=== PATIENT | female | born 1990 | race Caucasian/White ===

== ENCOUNTER 2019-09-06 10:08 | Emergency (ER) | payer SELFPAY ==
[2019-09-06 10:09] VITALS: BP 121/58; PULSE 86; RESP 18; TEMP 36.7; O2SAT 100; BMI 25.0
--- NOTE | 2019-09-06 10:11 | ED_ITS ---
Entered by [id number], acting as scribe for Joyce Rodríguez PA Sep 06, 2019 10:08 HPI - General Adult General: Chief complaint: Upper Respiratory Infection Stated complaint: COUGH, RUNNY NOSE Time Seen by Provider: 09/06/19 10:10 Source: patient Mode of arrival: ambulatory Limitations: no limitations History of Present Illness: HPI narrative: Patient is a 28-year-old female who presents to ED today with complaints of a sore throat, body aches, subjective fevers, productive cough, nasal congestion over the past few days. She states her is sick with similar symptoms. Patient has not had any vomiting or diarrhea. She has not had any recent travels. She denies any difficulty breathing or shortness of breath. Onset (ago): day(s) Relieving factors: none Exacerbating factors: none Associated symptoms: Deny chest pain, dyspnea, headache(s), malaise, nausea, rash, palpitations, syncope or vomiting Review of Systems Const: Reports: body aches; Denies: fever (subjective), chills, change in appetite, change in weight, fatigue or malaise Eyes: Denies: change in vision, blurry vision, photophobia, eye discomfort or eye discharge ENMT: Reports: throat pain, painful swallowing, nasal discharge, nasal congestion and facial/sinus pain; Denies: uvular edema, enlarged tonsils, swelling of lips/tongue, oral sores/lesions, ear pain, ear discharge, tinnitus, nose bleeds or post nasal drip Card: Denies: chest pain, palpitations, irregular heart rhythm, edema, swelling of feet/ankles, lightheadedness, syncope, pre-syncope or shortness of breath when lying down Resp: Reports: productive cough and chest congestion; Denies: shortness of breath, non-productive cough, pain on inspiration or coughing up blood GI: Denies: abdominal pain, nausea, vomiting or diarrhea : Denies: flank pain, difficulty urinating, painful urination, urinary frequency, urinary urgency or urinary hesitancy Musc: Denies: neck pain or back pain Skin/Breast: Denies: rash Neuro: Denies: headache, numbness in extremities, weakness in extremities or changes in sensation All/Imm: Denies: facial swelling or seasonal allergies PFSH ED PFSH: Social History Smoking and tobacco status: never smoked Physical Exam Const: COMMON NORMALS: no apparent distress, average body habitus, oriented x3, no limitations, healthy appearing, alert and well nourished HENMT: COMMON NORMALS: normocephalic, head/scalp atraumatic, hearing grossly normal bilaterally, external ears normal, EAC's normal, TM's normal bilaterally, external nose normal, nasal mucous membranes and turbinates normal, moist oral mucous membranes and oropharynx normal HEAD & SCALP: normocephalic and atraumatic FACE & SINUS: sinus tenderness (mild bilateral maxillary) NOSE: external nose normal, nares normal and nasal mucous membranes and turbinates normal EXTERNAL EAR: Yes external ears normal EXTERNAL AUDITORY CANAL: EAC's normal TYMPANIC MEMBRANE: TM's normal bilaterally MOUTH: oral and palatal mucosa normal, lip normal and tongue normal THROAT: posterior oropharynx normal, tonsils normal and uvula midline; no uvular edema Eye: COMMON NORMALS: PERRL, EOMs intact bilaterally and conjunctivae normal CONJUNCTIVA: Yes conjunctivae normal PUPIL: Yes PERRL Neck/C-Spine: COMMON NORMALS: full ROM, no lymphadenopathy and no meningeal signs Resp: COMMON NORMALS: normal respiratory effort and clear to auscultation bilaterally AUSCULTATION: clear to auscultation bilaterally Cardio: COMMON NORMALS: regular rate and regular rhythm RATE: regular rate RHYTHM: regular rhythm GI: COMMON NORMALS: normal to inspection, nondistended, normoactive bowel sounds, soft to palpation and non-tender PALPATION: Yes soft Extremity: COMMON NORMALS: normal to inspection Neuro: COMMON NORMALS: oriented x3 SENSORIUM/ORIENTATION: Yes alert MENINGEAL SIGNS: Yes no meningeal signs Skin: COMMON NORMALS: no rashes or lesions noted GENERAL SKIN EXAM: no rashes or lesions noted Course Vital Signs: Vital signs: Vital Signs Temperature 98.1 F 09/06/19 10:09 Pulse Rate 86 09/06/19 10:09 Respiratory Rate 18 09/06/19 10:09 Blood Pressure 121/58 09/06/19 10:09 Pulse Oximetry 100 09/06/19 10:09 MDM - General Adult 2 MDM Narrative: Medical decision making narrative: pt does not meet state criteria for COVID-19 testing; recommend symptomatic treatment and self quarantine x 2 wks; vitals are perfect; CXR normal; influenza negative Lab Data: Labs: Lab Results 09/06/19 Range/Units 10:30 Influenza Type A A g Negative (Negative) POC Influenza B Ag Negative (Negative) Imaging Data^: CXR: Radiologist's impression: [address] [address] XRay Report Signed Patient: Batsheva Durand Unit #: [id number] : 1990 Age/Sex: 28 / F ADM Date: 09/06/19 Loc: ER Room/Bed: Attending Dr: Ordering Provider/Ordering MD: Joyce Rodríguez Date of Service: 09/06/19 Procedure(s): XR chest 1V portable [id number] Accession Number(s): [id number] Report Number: [id number] WS: [id number] XR chest 1V portable [id number] REASON FOR EXAM: cough/congestion FINDINGS: The heart and mediastinal interfaces normal. The lung valiente are well aerated. There is no pneumonia, pleural effusion, pulmonary edema, mass effect, or pneumothorax. The hilum and apices normal. Osseous structures were normal. XR/XR chest 1V portable [id number] IMPRESSION: Negative chest for active cardiopulmonary disease Dictated By: Kameron Boyd DO Signed By: Kameron Boyd DO Signed Date/Time: 09/06/19 1104 DD/ 1103 Discharge Plan Discharge Patient Disposition: Home, Self-Care Clinical Impression: Upper respiratory infection Qualifiers: URI type: unspecified viral URI Qualified Code(s): J06.9 - Acute upper respiratory infection, unspecified Condition: Stable Discharge Orders: Discharge Order (Routine); Ordered 09/06/19 Ordered By: Joyce Rodríguez Referrals: Megan Ledesma MD [Primary Care Provider] - Discharge Diet: Usual diet Discharge Activity: Increase activity as tolerated Patient Instructions: Upper Respiratory Infection (ED), Viral Syndrome (ED) Coding Level of Care Code ED Copper Plate Lithographer for Chg Fwd Exam Comprehensive The documentation recorded by the scribe, [id number], accurately reflects the service I personally performed and the decisions made by Marcos watson Emily, PA Sep 06, 2019 10:08
--- NOTE | 2019-09-06 10:22 | XR_ITS ---
WS: [id number] XR chest 1V portable [id number] REASON FOR EXAM: cough/congestion FINDINGS: The heart and mediastinal interfaces normal. The lung valiente are well aerated. There is no pneumonia, pleural effusion, pulmonary edema, mass effe ct, or pneumothorax. The hilum and apices normal. Osseous structures were normal. XR/XR chest 1V portable [id number] IMPRESSION: Negative chest for active cardiopulmonary disease
[2019-09-06] MEDS: acetaminophen 500 mg Tablet 1000 MG PO (10:29)
[2019-09-06 11:03] LABS: Influenza A by IFA Negative (Negative); Influenza B by IFA Negative (Negative)
[2019-09-06 11:14] VITALS: PULSE 78; RESP 14; O2SAT 100
== END 2019-09-06 11:14 | disposition home or self-care (01) ==
PROVIDERS: Emergency Provider Physician Assistant; Family Provider Family Medicine; PCP Family Medicine
DX: J06.9 Acute upper respiratory infection, unspecified (principal)
CPT/HCPCS: 12345; 71045; 87804; 99281; 99283

== ENCOUNTER 2019-12-02 17:47 | Emergency (ER) | payer SELFPAY ==
[2019-12-02 17:51] VITALS: BMI 26.0
[2019-12-02 17:54] VITALS: BP 124/71; PULSE 87; RESP 16; TEMP 36.8; O2SAT 100
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
--- NOTE | 2019-12-02 18:06 | XR_ITS ---
WS: [id number] XR knee LT 3V* [id number] REASON FOR EXAM: injury with pain FINDINGS: The meniscal spaces are normal. The patellofemoral articulations are normal. The patella ti bial space are normal. No fractures or displacement of the knee. XR/XR knee LT 3V* [id number] IMPRESSION: Negative left knee.
--- NOTE | 2019-12-02 18:06 | XR_ITS ---
WS: [id number] XR knee RT 3V* [id number] REASON FOR EXAM: injury with pain FINDINGS: The meniscal spaces are normal. No fractures of the femur, tibia, fibula. The patellofemoral articulations are normal. No fractures of the patella. The patella tibial space is within normal limits. XR/XR knee RT 3V* [id number] IMPRESSION: Negative right knee for fractures.
[2019-12-02] MEDS: HYDROcodone-acetaminophen 7.5-325 mg Tablet 1 TAB PO (18:11)
== END 2019-12-02 18:49 | disposition home or self-care (01) ==
PROVIDERS: Emergency Provider Physician Assistant; PCP Family Medicine
DX: L55.9 Sunburn, unspecified (principal); M25.561 Pain in right knee; M25.562 Pain in left knee
CPT/HCPCS: 12345; 73562; 99281; 99283

== ENCOUNTER → 2020-02-02 11:40 | Outpatient (BNVA) | payer OTHER, SELFPAY | PROVIDERS: PCP Family Medicine; Visit Provider Obstetrics & Gynecology | DX: R63.5 Abnormal weight gain (principal) | CPT/HCPCS: 84443 ==

== ENCOUNTER → 2020-03-16 14:45 | Outpatient (BNVA) | payer OTHER, SELFPAY | PROVIDERS: Visit Provider Psychiatry & Neurology Psychiatry | DX: F33.2 Major depressive disorder, recurrent severe without psychotic features (principal); F10.21 Alcohol dependence, in remission; F12.21 Cannabis dependence, in remission | CPT/HCPCS: 99204 ==

== ENCOUNTER → 2020-04-11 08:28 | Outpatient (BNVA) | payer OTHER, SELFPAY | PROVIDERS: Visit Provider Psychiatry & Neurology Psychiatry | DX: F33.2 Major depressive disorder, recurrent severe without psychotic features (principal); F10.21 Alcohol dependence, in remission; F12.21 Cannabis dependence, in remission | CPT/HCPCS: 99213 ==

== ENCOUNTER → 2020-07-04 09:21 | Outpatient (BNVA) | payer OTHER, SELFPAY | PROVIDERS: Visit Provider Psychiatry & Neurology Psychiatry | DX: F32.9 Major depressive disorder, single episode, unspecified (principal); F33.2 Major depressive disorder, recurrent severe without psychotic features; F12.21 Cannabis dependence, in remission; F10.21 Alcohol dependence, in remission | CPT/HCPCS: 99213 ==

== ENCOUNTER 2020-09-08 18:54 | Emergency (ER) | payer OTHER, SELFPAY ==
--- NOTE | 2020-09-08 18:55 | CTR_ITS ---
PROCEDURE INFORMATION: Exam: CT Head Without Contrast Exam date and time: 09/08/2020 7:05 PM Age: 29 years old Clinical indication: Pain; Dizziness and other: Nausea; Headache; Additional info: Syncope TECHNIQUE: Imaging protocol: Computed tomography of the head without contrast. Radiation optimization: All CT scans at this facility use at least one of these dose optimization techniques: automated exposure control; mA and/or kV adjustment per patient size (includes targeted exams where dose is matched to clinical indication); or iterative reconstruction. COMPARISON: No relevant prior studies available. RADIATION DOSE METRICS: Total DLP (mGy-cm): 716.51 FINDINGS: Brain: Normal. No hemorrhage or evidence of acute infarction is seen. No mass effect. Cerebral ventricles: No ventriculomegaly. Bones/joints: Unremarkable. No acute fracture. Paranasal sinuses: Visualized sinuses are unremarkable. No fluid levels. Mastoid air cells: Visualized mastoid air cells are well aerated. Soft tissues: Unremarkable. CT/CT head wo con* [id number] IMPRESSION: No acute intracranial abnormality. Radiation Dose CTDIVOL = (mGy): DLP = 716.51 (mGy-cm)
[2020-09-08 19:02] VITALS: BP 143/88; PULSE 87; RESP 18; TEMP 37; O2SAT 100; BMI 26.6
[2020-09-08] MEDS: ketorolac 30 mg/mL INJ IVP (19:55)
[2020-09-08] MEDS: diphenhydrAMINE 50 mg/mL SDV 1mL IVP (19:55)
[2020-09-08] MEDS: metoclopramide 5 mg/mL SDV 2 mL 10 MG IVP (19:55)
[2020-09-08 20:07] LABS: Basophils # 0.1 10^3/uL (0.0-0.1); Basophils % 0.6 %; Eosinophils # 0.1 10^3/uL (0.0-0.8); Eosinophils % 0.9 %; Hematocrit 44.2 % (37.0-47.0); Hemoglobin 13.9 g/dL (11.5-15.3); Lymphocytes % 28.8 %; Mean Corpuscular HGB Conc 31.4 g/dL (30.0-36.0); Mean Corpuscular Volume 89.1 fL (81-99); Mean Platelet Volume 10.5 fL (7.4-10.4); Monocytes # 0.5 10^3/uL (0.2-0.9); Monocytes % 4.9 %; Neutrophils # 6.74 10^3/uL (1.8-7.7); Neutrophils % 64.5 %; Nucleated Red Blood Cells % 0 %; Platelet Count 289 10^3/cmm (130-400); Red Blood Count 4.96 10^6/uL (4.1-5.3); Red Cell Distribution Width 12.9 % (12.1-15.1); White Blood Count 10.4 10^3/uL (4.0-10.0)
[2020-09-08 20:26] LABS: Alanine Aminotransferase 22 U/L (0-33); Albumin Level 4.3 g/dL (3.5-5.2); Alkaline Phosphatase 96 IU/L (35-105); Anion Gap 11.3 (5-19); Aspartate Amino Transferase 22 U/L (0-32); Blood Urea Nitrogen 8 mg/dL (6-20); Calcium 9.1 mg/dL (8.5-10.5); Carbon Dioxide 30 mmol/L (22-29); Chloride 104 mmol/L (98-107); Globulin 3.3 g/dL (1.3-4.6); Glucose 111 mg/dL (65-115); Osmolality Calculated 293 mOsm/kg (285-295); Potassium 3.3 mmol/L (3.5-5.1); Sodium 142 mmol/L (136-145); Total Bilirubin 0.2 mg/dL (0.15-1.2); Total Protein 7.6 g/dL (6.6-8.7)
[2020-09-08 20:27] LABS: HCG Qualitative Urine. Negative (Negative)
--- NOTE | 2020-09-08 20:31 | W.ED.HA ---
HPI - Headache General: Chief Complaint: Headache Stated Complaint: NEAR SYNCOPE, SENT BY [facility] FOR HEAD CT Time Seen by Provider: 09/08/20 19:13 Source: patient Mode of arrival: ambulatory Limitations: no limitations History of Present Illness: HPI Narrative: 29-year-old female patient who presents to the emergency department with headaches of about 3 days duration. Headache is frontal in location. She has a history of migraines but she says that this is worse than her usual migraines. She went to see her primary care provider who advised that she be evaluated in the emergency department. MD elicited complaint: headache Onset (ago): day(s) (3) Onset description: gradually Location: frontal Severity: severe Quality & Timing: aching, progressively worsening and worst headache of life Exacerbating factors: none Relieving factors: nothing Context: occurred at rest Associated symptoms: Reports lightheadedness and nausea; Deny chest pain, confusion, cough, diaphoresis, eye pain, eye redness, fever(s), loss of vision, malaise, neck stiffness, numbness, paresthesias, photophobia, pre-syncope, rash, seizures, short of breath, sound sensitivity, syncope, vomiting or weakness Review of Systems General: Reports: 10 or more systems reviewed and unremarkable except in HPI and below Const: Denies: fever(s), malaise or diaphoresis Eyes: Denies: change in vision or blurry vision ENMT: Denies: throat pain, enlarged tonsils, odynophagia, hoarseness, mouth pain or swelling of lips/tongue Card: Reports: lightheadedness; Denies: chest pain, syncope or pre-syncope Resp: Denies: dyspnea, productive cough or non-productive cough GI: Reports: nausea; Denies: vomiting : Denies: flank pain, difficulty voiding, dysuria, urinary frequency, urinary urgency or urinary hesitancy Musc: Denies: neck pain, back pain or extremity swelling Skin/Breast: Denies: rash Neuro: Denies: confusion Endo: Denies: polyuria, polydipsia or tired all the time PFS ED PFSH: Medical History Anxiety and depression Diagnosed as a teenager and has used medications on and off in the past. Was on Celexa and BuSpar during her in 2019. Follows with PMD. Does not have a therapist. No pertinent past medical history Denies diabetes, asthma, hypertension, seizures, DVT/PE. PCP: Dr. Ledesma Surgical History S/P laparoscopy In 2010 for bilateral ovarian cysts---this surgery was performed by Dr. Vanegas Family History Father Diabetes Hypertension Heart disease of same Mother Hypertension Denies family history of Colon cancer Ovarian cancer Hyperlipidemia Breast cancer Uterine cancer Thyroid condition Stroke Social History Smoking and tobacco status: never smoked Second hand smoke exposure: Yes Current gender identity: Female Female Reproductive History: Date of last menstrual period: 09/08/20 Physical Exam Const: COMMON NORMALS: no acute distress, average body habitus, patient oriented x3, no limitations, healthy appearing, alert and well nourished HENMT: COMMON NORMALS: normocephalic, atraumatic, external ears normal, EAC's normal and moist oral mucous membranes HEAD & SCALP: normocephalic and atraumatic FACE & SINUS: sinus tenderness frontal and maxillary EXTERNAL EAR: Yes external ears normal EXTERNAL AUDITORY CANAL: EAC's normal TYMPANIC MEMBRANE: TM abnormal TM laterality: bilateral with fluid behind the TM Eye: COMMON NORMALS: Equal, round and reactive pupils present, EOMs intact bilaterally, conjunctivae normal and no scleral icterus CONJUNCTIVA: Yes conjunctivae normal PUPIL: Yes Equal, round and reactive pupils present DIRECT OPHTHALMOSCOPY: No photophobia Neck/C-Spine: COMMON NORMALS: full ROM, supple, no meningeal signs, no JVD and No carotid bruits Resp: COMMON NORMALS: normal respiratory effort, No retractions, No use of accessory muscles, clear to auscultation bilaterally and percussion normal AUSCULTATION: clear to auscultation bilaterally PERCUSSION: percussion normal Cardio: COMMON NORMALS: no JVD, regular rate, regular rhythm, S1 normal heart sound present, S2 normal heart sound present, No gallops present (Cardio), No clicks present (Cardio), No murmurs present (Cardio), No rub (Cardio) and Peripheral pulses 2+ throughout RATE: regular rate RHYTHM: regular rhythm HEART SOUNDS: S1 normal heart sound present and S2 normal heart sound present PERIPHERAL PULSES: Peripheral pulses 2+ throughout GI: COMMON NORMALS: Normal to inspection, nondistended, normoactive bowel sounds present, Soft to palpation, non-tender, No hepatosplenomegaly present, no masses and no bruits PALPATION: Yes Soft to palpation and Yes No hepatosplenomegaly present Extremity: COMMON NORMALS: normal to inspection, full ROM, capillary refill normal, no calf tenderness and no pedal edema Neuro: COMMON NORMALS: patient oriented x3 SENSORIUM/ORIENTATION: Yes alert MENINGEAL SIGNS: Yes no meningeal signs Course Reevaluation(s): Reevaluation #1: Discussed her lab and imaging findings with her. Negative for acute findings. Headache has resolved following the Toradol and Benadryl. Discussed that her examination findings are consistent with acute sinusitis and she will be managed as such. She voiced understanding and is in agreement with the plan. Time: 20:31 Vital Signs: Vital signs: Vital Signs Temperature 98.6 F 09/08/20 19:02 Pulse Rate 87 09/08/20 19:02 Respiratory Rate 18 09/08/20 19:02 Blood Pressure 143/88 09/08/20 19:02 Pulse Oximetry 100 09/08/20 19:02 MDM - Headache MDM Narrative: Medical decision making narrative: 29-year-old female patient with a history of migraines who presents with headache. On examination she has maxillary and frontal sinus tenderness and she will be treated as a case of sinusitis. Head CT was negative for acute findings. Headache resolved following intravenous ketorolac and diphenhydramine. Lab Data: Labs: Lab Results 09/08/20 09/08/20 09/08/20 Range/Units 20:00 20:00 20:10 WBC 10.4 H (4.0-10.0) 10^3/ uL RBC 4.96 (4.1-5.3) 10^6/u L Hgb 13.9 (11.5-15.3) g/dL Hct 44.2 (37.0-47.0) % MCV 89.1 (81-99) fL MCH 28.0 (28.0-34.0) pg MCHC 31.4 (30.0-36.0) g/dL RDW 12.9 (12.1-15.1) % Plt Count 289 (130-400) 10^3/c mm MPV 10.5 H (7.4-10.4) fL Neut % (Auto) 64.5 % Lymph % (Auto) 28.8 % [place] % (Auto) 4.9 % Eos % (Auto) 0.9 % Baso % (Auto) 0.6 % Neut # (Auto) 6.74 (1.8-7.7) 10^3/u L Lymph # (Auto) 3.0 (0.8-4.8) 10^3/u L [place] # (Auto) 0.5 (0.2-0.9) 10^3/u L Eos # (Auto) 0.1 (0.0-0.8) 10^3/u L Baso # (Auto) 0.1 (0.0-0.1) 10^3/u L Nucleated RBC % (a uto) 0 % Nucleated RBCs # 0.0 /100WBC Sodium 142 (136-145) mmol/L Potassium 3.3 L (3.5-5.1) mmol/L Chloride 104 (98-107) mmol/L Carbon Dioxide 30 H (22-29) mmol/L Anion Gap 11.3 (5-19) BUN 8 (6-20) mg/dL Creatinine 0.9 (0.5-0.9) mg/dL GFR Calculation 74.0 L (90-130) mL/min Glucose 111 (65-115) mg/dL Calculated Osmolal ity 293 (285-295) mOsm/k g Calcium 9.1 (8.5-10.5) mg/dL Total Bilirubin 0.2 (0.15-1.2) mg/dL AST 22 (0-32) U/L ALT 22 (0-33) U/L Alkaline Phosphata se 96 (35-105) IU/L Total Protein 7.6 (6.6-8.7) g/dL Albumin 4.3 (3.5-5.2) g/dL Globulin 3.3 (1.3-4.6) g/dL HCG, Qual Negative (Negative) Imaging Data^: CT Head: Attestation: I personally reviewed and interpreted this imaging study as follows: Radiologist's impression: [facility] [address] [place] [address] CT Scan Report Signed Patient: Batsheva Durand #: [id number] : 1990Acct#:[id number] Age/Sex: 29 / FADM Date: 09/08/20 Loc: ERRoom/Bed: Attending Dr: Ordering Provider/Ordering MD: Blas Aldrich MD Date of Service: 09/08/20 Procedure(s): CT head wo con* [id number] Accession Number(s): [id number] Report Number: [id number] PROCEDURE INFORMATION: Exam: CT Head Without Contrast Exam date and time: 09/08/2020 7:05 PM Age: 29 years old Clinical indication: Pain; Dizziness and other: Nausea; Headache; Additional info: Syncope TECHNIQUE: Imaging protocol: Computed tomography of the head without contrast. Radiation optimization: All CT scans at this facility use at least one of these dose optimization techniques: automated exposure control; mA and/or kV adjustment per patient size (includes targeted exams where dose is matched to clinical indication); or iterative reconstruction. COMPARISON: No relevant prior studies available. RADIATION DOSE METRICS: Total DLP (mGy-cm): 716.51 FINDINGS: Brain: Normal. No hemorrhage or evidence of acute infarction is seen. No mass effect. Cerebral ventricles: No ventriculomegaly. Bones/joints: Unremarkable. No acute fracture. Paranasal sinuses: Visualized sinuses are unremarkable. No fluid levels. Mastoid air cells: Visualized mastoid air cells are well aerated. Soft tissues: Unremarkable. CT/CT head wo con* [id number] IMPRESSION: No acute intracranial abnormality. Radiation Dose CTDIVOL = (mGy): DLP = 716.51 (mGy-cm) Dictated By:Sivakumar López MD Signed By:Sivakumar López MDSigned Date/Time:09/08/201936 DD/ 34 Discharge Plan Discharge Patient Disposition: Home Clinical Impression: Sinusitis Qualifiers: Sinusitis location: frontal Chronicity: acute Recurrence: non-recurrent Qualified Code(s): J01.10 - Acute frontal sinusitis, unspecified Condition: Stable Prescriptions: New doxycycline hyclate 100 mg capsule 100 mg PO BID 7 Days Qty: 14 RF: 0 Children's Flonase Allergy Rlf 50 mcg/actuation spray,suspension 2 spray intranasal DAILY Qty: 16 RF: 0 Continued Unisom (doxylamine) 25 mg tablet 25 mg PO PRN RF: 0 buspirone 7.5 mg tablet 7.5 mg PO BID Qty: 60 RF: 2 hydroxyzine HCl 50 mg tablet 50 mg PO BID PRN (Reason: anxiety) Qty: 60 RF: 2 multivitamin Tablet 1 tab PO QAM RF: 0 aspirin 81 mg Tablet,Delayed Release (Dr/Ec) 81 mg PO PRN RF: 0 Tylenol Extra Strength 500 mg Tablet 1,000 mg PO PRN RF: 0 Midol 500-25 mg Tablet 1 - 2 tab PO PRN RF: 0 duloxetine 30 mg capsule,delayed release(DR/EC) 30 mg PO QAM RF: 0 Discharge Orders: Discharge ED (Routine); Ordered 09/08/20 Ordered By: Mario Bedoya Discharge Diet: Usual diet Discharge Activity: Increase activity as tolerated Patient Instructions: Sinusitis (ED) Activity Restrictions/Additional Instructions: Return for any new or worsening symptoms. Follow-up with your primary care provider within 3 days. Take the medications as prescribed. Drink plenty of fluids to keep well-hydrated. Coding Level of Care Code ED Tape Controlled Machine Stitcher for Alma Epperson
== END 2020-09-08 20:54 | disposition home or self-care (01) ==
PROVIDERS: Emergency Medicine; Emergency Provider Family Medicine
DX: J01.10 Acute frontal sinusitis, unspecified (principal); Z79.82 Long term (current) use of aspirin; Z77.22 Contact with and (suspected) exposure to environmental tobacco smoke (acute) (chronic)
CPT/HCPCS: 70450; 80053; 81025; 85025; 96374; 96375; 99284; J1200; J1885; J2765

== ENCOUNTER → 2020-10-28 09:34 | Outpatient (BNVA) | payer OTHER, SELFPAY | PROVIDERS: Visit Provider Psychiatry & Neurology Psychiatry | DX: F33.2 Major depressive disorder, recurrent severe without psychotic features (principal); F12.21 Cannabis dependence, in remission; F10.21 Alcohol dependence, in remission | CPT/HCPCS: 99213 ==

== ENCOUNTER 2021-02-08 16:48 | Emergency (ER) | payer OTHER, SELFPAY ==
[2021-02-08 16:53] VITALS: BP 92/55; PULSE 97; RESP 16; TEMP 37.4; O2SAT 97; BMI 24.3
== END 2021-02-08 21:13 | disposition home or self-care (01) ==
LOC: ER 16:52
PROVIDERS: Emergency Provider Emergency Medicine
DX: Z53.21 Procedure and treatment not carried out due to patient leaving prior to being seen by health care provider (principal)
CPT/HCPCS: 99281

== ENCOUNTER → 2021-03-02 14:30 | Outpatient (BNVA) | payer MEDICAID, SELFPAY | PROVIDERS: Visit Provider Nurse Practitioner Family | DX: Z20.822 Contact with and (suspected) exposure to COVID-19 (principal) | CPT/HCPCS: 87635 ==

== ENCOUNTER 2021-05-30 10:16 | Emergency (ER) | payer MEDICAID, SELFPAY ==
[2021-05-30 10:25] VITALS: PULSE 122; RESP 20; TEMP 37.1; O2SAT 97; BMI 23.8
--- NOTE | 2021-05-30 10:29 | XR_ITS ---
WS: [id number] XR chest 1V portable [id number] REASON FOR EXAM: dyspnea/cough FINDINGS: The heart and mediastinum are within normal limits. Calcified granulomatous changes in both hemithoraces. No active pulmonary parenchymal or pleural disease. No significant abnormality of the bony thorax. XR/XR chest 1V portable [id number] IMPRESSION: No acute chest abnormality.
[2021-05-30 10:32] VITALS: BP 141/99
--- NOTE | 2021-05-30 10:41 | ED_ITS ---
HPI - General Adult General: Chief complaint: General Medical Stated complaint: FLU LIKE SYMPTOMS Time Seen by Provider: 05/30/21 10:18 History of Present Illness: HPI narrative: 30-year-old female presents to the emergency room complaining of nausea and vomiting and flank pain. She has had a UTI recently.She is also had fever and fatigue. Is tachycardic but afebrile at this time. She denies hematuria denies hematochezia melena hematemesis coffee- ground emesis. No shortness of breath no chest pain or abdominal pain. Onset (ago): hour(s) Radiation: other (Pelvic) Severity: mild Quality: burning Pain Consistency: intermittent Relieving factors: none Exacerbating factors: none Associated symptoms: Reports fevers/chills, nausea, vomiting and weakness; Deny chest pain, cough, diaphoresis, decreased appetite, dyspnea, headache(s), malaise, rash, palpitations, seizures, short of breath or syncope Treatments prior to arrival: none Review of Systems Const: Denies: malaise or diaphoresis ENMT: Denies: throat pain, ear or mastoid pain, nasal discharge or nasal congestion Card: Denies: chest pain, palpitations or syncope Resp: Denies: dyspnea GI: Reports: nausea and vomiting : Reports: flank pain, difficulty voiding and dysuria; Denies: urinary frequency or urinary urgency Skin/Breast: Denies: rash Neuro: Denies: headache(s) PFS ED PFSH: Medical History Anxiety and depression Diagnosed as a teenager and has used medications on and off in the past. Was on Celexa and BuSpar during her in 2019. Follows with PMD. Does not have a therapist. No pertinent past medical history Denies diabetes, asthma, hypertension, seizures, DVT/PE. PCP: Dr. Ledesma Surgical History S/P laparoscopy In 2010 for bilateral ovarian cysts---this surgery was performed by Dr. Vanegas Family History Father Diabetes Hypertension Heart disease of same Mother Hypertension Denies family history of Colon cancer Ovarian cancer Hyperlipidemia Breast cancer Uterine cancer Thyroid condition Stroke Social History Smoking and tobacco status: never smoked Second hand smoke exposure: Yes Current gender identity: Female Female Reproductive History: Date of last menstrual period: 05/16/21 Physical Exam Const: COMMON NORMALS: no acute distress GENERAL APPEARANCE: cooperative and comfortable ORIENTATION/CONSCIOUSNESS: Yes awake, Yes oriented to person, Yes oriented to place and Yes oriented to time HENMT: COMMON NORMALS: normocephalic, atraumatic and hearing grossly normal bilaterally HEAD & SCALP: normocephalic and atraumatic Neck/C-Spine: COMMON NORMALS: no JVD Resp: COMMON NORMALS: normal respiratory effort, No retractions, No use of accessory muscles and clear to auscultation bilaterally AUSCULTATION: clear to auscultation bilaterally Cardio: COMMON NORMALS: no JVD, regular rate, regular rhythm and No murmurs present (Cardio) RATE: regular rate RHYTHM: regular rhythm GI: COMMON NORMALS: Soft to palpation and No hepatosplenomegaly present AUSCULTATION: Yes normoactive bowel sounds PALPATION: Yes Soft to palpation, No Tenderness to palpation present (GI), No Guarding due to palpation present (GI) and Yes No hepatosplenomegaly present Extremity: COMMON NORMALS: normal to inspection, capillary refill normal, no clubbing, cyanosis or edema, no calf tenderness and no pedal edema Neuro: SENSORIUM/ORIENTATION: Yes oriented to person, Yes oriented to place and Yes oriented to time Skin: COMMON NORMALS: no rashes or lesions noted GENERAL SKIN EXAM: no rashes or lesions noted Course Vital Signs: Vital signs: Vital Signs Temperature 98.8 F 05/30/21 10:25 Pulse Rate 119 H 05/30/21 14:39 Respiratory Rate 17 05/30/21 14:39 Blood Pressure 111/59 05/30/21 14:39 Pulse Oximetry 98 05/30/21 14:39 MDM - General Adult MDM Narrative: Medical decision making narrative: Labs and imaging reviewed. Patient has UTI white count not elevated we will start her on Cipro use promethazine as needed clear liquid diet for 24 to 48 hours and advance as tolerated return if has any further problems. Lab Data: Labs: Lab Results 05/30/21 05/30/21 05/30/21 10:41 10:41 10:41 WBC 8.4 10^3/uL 10^3/ uL (4.0-10.0) RBC 5.47 10^6/uL H 10 ^6/uL (4.1-5.3) Hgb 15.4 g/dL H g/dL (11.5-15.3) Hct 47.4 % H % (37.0-47.0) MCV 86.7 fl fl (81-99) MCH 28.2 pg pg (28.0-34.0) MCHC 32.5 g/dL g/dL (30.0-36.0) RDW 12.7 % % (12.1-15.1) Plt Count 190 10^3/cmm 10^3 /cmm (130-400) MPV 11.2 fL H fL (7.4-10.4) Neut % (Auto) 89.6 % % Lymph % (Auto) 7.5 % % [place] % (Auto) 1.3 % % Eos % (Auto) 0.7 % % Baso % (Auto) 0.5 % % Neut # (Auto) 7.57 10^3/uL 10^3 /uL (1.8-7.7) Lymph # (Auto) 0.6 10^3/uL L 10^ 3/uL (0.8-4.8) [place] # (Auto) 0.1 10^3/uL L 10^ 3/uL (0.2-0.9) Eos # (Auto) 0.1 10^3/uL 10^3/ uL (0.0-0.8) Baso # (Auto) 0.0 10^3/uL 10^3/ uL (0.0-0.1) Nucleated RBC % (a uto) 0 % % Nucleated RBCs # 0.0 /100WBC /100W BC Sodium 136 mmol/L mmol/L (136-145) Potassium 4.6 mmol/L mmol/L (3.5-5.1) Chloride 100 mmol/L mmol/L (98-107) Carbon Dioxide 20 mmol/L L mmol/ L (22-29) Anion Gap 20.6 H (5-19) BUN 7 mg/dL mg/dL (6-20) Creatinine 0.9 mg/dL mg/dL (0.5-0.9) GFR Calculation 73.5 mL/min L mL/ min (90-130) Glucose 115 mg/dL mg/dL (65-115) Calculated Osmolal ity 281 mOsm/kg L mOs m/kg (285-295) Lactic Acid 1.6 mmol/L mmol/L (0.5-2.2) Calcium 9.0 mg/dL mg/dL (8.5-10.5) Total Bilirubin 0.3 mg/dL mg/dL (0.15-1.2) AST 22 U/L U/L (0-32) ALT 13 U/L U/L (0-33) Alkaline Phosphata se 74 IU/L IU/L (35-105) Total Protein 7.3 g/dL g/dL (6.6-8.7) Albumin 4.3 g/dL g/dL (3.5-5.2) Globulin 3.0 g/dL g/dL (1.3-4.6) HCG, Qual Urine Color Urine Appearance Urine pH Ur Specific Gravit y Urine Protein Urine Glucose (UA) Urine Ketones Urine Blood Urine Nitrate Urine Bilirubin Urine Urobilinogen Ur Leukocyte Bell ase Urine RBC Urine WBC Ur Squamous Epith Cells Amorphous Sediment Urine Bacteria 05/30/21 05/30/21 10:41 10:41 WBC RBC Hgb Hct MCV MCH MCHC RDW Plt Count MPV Neut % (Auto) Lymph % (Auto) [place] % (Auto) Eos % (Auto) Baso % (Auto) Neut # (Auto) Lymph # (Auto) [place] # (Auto) Eos # (Auto) Baso # (Auto) Nucleated RBC % (a uto) Nucleated RBCs # Sodium Potassium Chloride Carbon Dioxide Anion Gap BUN Creatinine GFR Calculation Glucose Calculated Osmolal ity Lactic Acid Calcium Total Bilirubin AST ALT Alkaline Phosphata se Total Protein Albumin Globulin HCG, Qual Negative (Negative) Urine Color Yellow (Yellow) Urine Appearance Hazy A (CLEAR) Urine pH 5 (5-7) Ur Specific Gravit y 1.005 (1.005-1.030) Urine Protein Neg (Negative) Urine Glucose (UA) Norm (Normal) Urine Ketones Negative (Negative) Urine Blood 3+ H (Negative) Urine Nitrate Negative (Negative) Urine Bilirubin Neg (Negative) Urine Urobilinogen Norm mg/dL mg/dL (Negative) Ur Leukocyte [place] 1+ H (Negative) Urine RBC 5-10 /hpf H /hpf (0-2) Urine WBC 25-40 /hpf H /hpf (0-5) Ur Squamous Epith Cells 0-4 /hpf H /hpf (0-5) Amorphous Sediment Not Reportable Urine Bacteria 1+ /hpf H /hpf (NONE) Discharge Plan Discharge Patient Disposition: Home Clinical Impression: Cystitis Condition: Stable Prescriptions: New ciprofloxacin HCl 500 mg tablet 500 mg PO BID Qty: 14 RF: 0 promethazine 25 mg tablet 25 mg PO Q6H PRN (Reason: nausea and vomiting) Qty: 20 RF: 0 No Action Unisom (doxylamine) 25 mg tablet 25 mg PO BEDTIME PRN (Reason: Sleep) RF: 0 multivitamin Tablet 1 tab PO QAM RF: 0 acetaminophen [Tylenol Extra Strength] 500 mg Tablet 1,000 mg PO Q4H PRN (Reason: Pain) RF: 0 Isibloom 0.15-0.03 mg tablet 1 tab PO QAM RF: 0 ibuprofen 200 mg Tablet 600 mg PO Q4H PRN (Reason: Pain) RF: 0 Claritin 10 mg Tablet 10 mg PO DAILY RF: 0 Discharge Orders: Discharge ED (Routine); Ordered 05/30/21 Ordered By: Ilan Carroll Discharge Diet: Clear Liquid Discharge Activity: Increase activity as tolerated Patient Instructions: Opioid Safety Coding Level of Care Code ED Geodetic Survey Director for Alma Epperson
[2021-05-30] MEDS: sodium chloride 0.9% 1,000 ML 999 ML IV ×2 (10:45→11:15)
[2021-05-30] MEDS: ondansetron 2 mg/ML SDV 2 mL 4 MG IVP (10:46)
[2021-05-30] MEDS: ketorolac 30 mg/mL INJ IVP (10:46)
[2021-05-30 10:59] LABS: Basophils % 0.5 %; Eosinophils # 0.1 10^3/uL (0.0-0.8); Eosinophils % 0.7 %; Hematocrit 47.4 % (37.0-47.0); Hemoglobin 15.4 g/dL (11.5-15.3); Lymphocytes # 0.6 10^3/uL (0.8-4.8); Lymphocytes % 7.5 %; Mean Corpuscular HGB Conc 32.5 g/dL (30.0-36.0); Mean Corpuscular Hemoglobin 28.2 pg (28.0-34.0); Mean Corpuscular Volume 86.7 fl (81-99); Mean Platelet Volume 11.2 fL (7.4-10.4); Monocytes # 0.1 10^3/uL (0.2-0.9); Monocytes % 1.3 %; Neutrophils # 7.57 10^3/uL (1.8-7.7); Neutrophils % 89.6 %; Nucleated Red Blood Cells % 0 %; Platelet Count 190 10^3/cmm (130-400); Red Blood Count 5.47 10^6/uL (4.1-5.3); Red Cell Distribution Width 12.7 % (12.1-15.1); White Blood Count 8.4 10^3/uL (4.0-10.0)
[2021-05-30 11:10] LABS: HCG, Serum Qual Negative (Negative)
[2021-05-30 11:17] LABS: Lactic Sepsis W/Reflex 1.6 mmol/L (0.5-2.2)
[2021-05-30 11:20] LABS: Alanine Aminotransferase 13 U/L (0-33); Albumin Level 4.3 g/dL (3.5-5.2); Alkaline Phosphatase 74 IU/L (35-105); Anion Gap 20.6 (5-19); Blood Urea Nitrogen 7 mg/dL (6-20); Carbon Dioxide 20 mmol/L (22-29); Chloride 100 mmol/L (98-107); Glomerular Filtration Rate 73.5 mL/min (90-130); Glucose 115 mg/dL (65-115); Osmolality Calculated 281 mOsm/kg (285-295); Potassium 4.6 mmol/L (3.5-5.1); Sodium 136 mmol/L (136-145); Total Bilirubin 0.3 mg/dL (0.15-1.2); Total Protein 7.3 g/dL (6.6-8.7)
[2021-05-30 11:21] LABS: Aspartate Amino Transferase 22 U/L (0-32)
[2021-05-30 11:30] LABS: Blood Urine 3+ (Negative); Glucose Urine UA Norm (Normal); Ketones Urine Negative (Negative); Protein Urine Neg (Negative); Specific Gravity, Urine 1.005 (1.005-1.030); Urine Appearance Hazy (CLEAR); Urine Color Yellow (Yellow); pH Urine 5 (5-7)
[2021-05-30 11:31] LABS: Add Urine Culture? Yes; Add Urine Microscopic? YES; Bacteria Urine 1+ /hpf; Bilirubin Urine Neg (Negative); Leukocyte Esterase Urine 1+ (Negative); Nitrate Urine Negative (Negative); Squamous Epithelial Cell Urine 0-4 /hpf (0-5); Urobilinogen Urine Norm (Negative); WBC Urine 25-40 /hpf (0-5)
[2021-05-30] MEDS: cefTRIAXone 1,000 MG in sodium chloride 0.9% (plus) 50 ML 100 MG IV (12:40)
--- NOTE | 2021-05-30 12:45 | PC.NURSE ---
informed dr. thomas that hr was 119 bpm he verbalized understanding verbal order to continue with dc.
[2021-05-30 14:39] VITALS: BP 111/59; PULSE 119; RESP 17; O2SAT 98
== END 2021-05-30 12:45 | disposition home or self-care (01) ==
PROVIDERS: Emergency Provider Family Medicine
DX: N30.90 Cystitis, unspecified without hematuria (principal); Z77.22 Contact with and (suspected) exposure to environmental tobacco smoke (acute) (chronic)
CPT/HCPCS: 71045; 80053; 81001; 83605; 84703; 85025; 87040; 87077; 87086; 87186; 96365; 96375; 99284; J0696; J1885; J2405; J7030

== ENCOUNTER 2021-12-07 17:23 | Emergency (ER) | payer MEDICAID, SELFPAY ==
[2021-12-07 17:56] VITALS: BP 148/65; PULSE 76; RESP 14; TEMP 36.9; O2SAT 100
--- NOTE | 2021-12-07 18:13 | XRR_ITS ---
PROCEDURE INFORMATION: Exam: XR Chest Exam date and time: 12/07/2021 6:33 PM Age: 30 years old Clinical indication: Chest wall pain; Additional info: Cp TECHNIQUE: Imaging protocol: Radiologic exam of the chest. Views: 1 view. COMPARISON: CR XR chest 1V portable [id number] 05/30/2021 10:41 AM FINDINGS: Lungs: Unremarkable. No consolidation. Pleural spaces: Unremarkable. No pleural effusion. No pneumothorax. Heart/Mediastinum: Unremarkable. No cardiomegaly. Bones/joints: Unremarkable. XR/XR chest 1V portable [id number] IMPRESSION: No acute findings.
--- NOTE | 2021-12-07 18:13 | ECG_ITS ---
[facility] Test Date: 2021-12-07 Pat Name: Batsheva Durand Department: Room: Gender: Female Vice President Biostatistics: : 1990 Requested By: Blas Aldrich Order Number: [id number] Ricci MD: Alfred Jacinto M.D. Measurements Intervals [place] Rate: 62 P: 50 NV: 137 QRS: 44 QRSD: 83 T: 55 QT: 402 QTc: 411 Interpretive Statements SINUS RHYTHM No previous ECG available for comparison Electronically Signed On 12-07-2021 22:29:16 CDT by Alfred Jacinto M.D. [id number]
== END 2021-12-07 21:22 | disposition left against medical advice (07) ==
PROVIDERS: Emergency Provider Family Medicine
DX: Z53.21 Procedure and treatment not carried out due to patient leaving prior to being seen by health care provider (principal)
CPT/HCPCS: 71045; 93005

== ENCOUNTER → 2021-12-08 12:19 | Outpatient (BNVA) | payer MEDICAID, SELFPAY | PROVIDERS: Visit Provider Family Medicine | DX: R05.8 Other specified cough (principal) | CPT/HCPCS: 71046; 87635 ==

== ENCOUNTER 2022-05-24 17:29 | Emergency (ER) | payer MEDICAID, SELFPAY ==
[2022-05-24 17:36] VITALS: BP 125/79; PULSE 76; RESP 16; TEMP 36.5; O2SAT 100; BMI 26.3
--- NOTE | 2022-05-24 18:16 | USR_ITS ---
PROCEDURE INFORMATION: Exam: US First Trimester, Transabdominal and US , Transvaginal Exam date and time: 05/24/2022 6:22 PM Age: 31 years old Clinical indication: Lmp or gestational age (in weeks): 6 w 2 d; Antepartum complications; Bleeding and other: Cramping and spotting x 2-3 days; ; Patient HX: G2-p1 - spotting and cramping x 2 days LABS AND CLINICAL REPORTS: Last menstrual period start date: 04/10/2022 Gestational age (Established): 6 w 2 d Estimated due date (Established): 01/15/2023 TECHNIQUE: Imaging protocol: Real-time transabdominal obstetrical ultrasound of the maternal pelvis and a first trimester , less than 14 weeks 0 days, with image documentation. Transvaginal imaging was used for better evaluation of the fetus, adnexa, and/or cervix. COMPARISON: US OB limited [id number] 07/21/2018 2:20 AM FINDINGS: Gestation: Intrauterine gestation is visualized. pole is visualized. Yolk sac is visualized. Embryonic/ heart rate: 124 bpm Extra-embryonic membranes/Placenta: Unremarkable. No subchorionic bleed. Amniotic fluid: Amniotic fluid and extra-amniotic fluid is normal for gestational age. BIOMETRY: Gestational age (AUA): 6 w 4 d Estimated due date (AUA): 01/13/2023 [place]ump length (CRL): 7.3 mm. EGA (CRL) is 6 w 4 d MATERNAL: Uterus: Uterus measures 9.8 cm x 5 cm x 6.7 cm. Cervix: Unremarkable. Right ovary/adnexa: Right ovary measures 2.5 cm x 1.7 cm x 2.5 cm. Right ovarian volume is 5.6 mL. Prominent simple follicle measures 1.9 cm. Left ovary/adnexa: Left ovary measures 2.3 cm x 2.2 cm x 2.2 cm. Left ovarian volume is 5.9 mL. Small internal region of complexity may represent hemorrhagic follicle. Intraperitoneal space: No intraperitoneal free fluid. US/US OB <=14 wk fetus w transvag IMPRESSION: 1. Single live intrauterine gestation. 2. No acute abnormality.
--- NOTE | 2022-05-24 19:52 | ED_ITS ---
HPI - General: Chief complaint: Vaginal Bleeding Stated complaint: 6 weeks preg, vaginal pains Time Seen by Provider: 05/24/22 19:25 Source: patient Mode of arrival: ambulatory Limitations: no limitations History of Present Illness: 31-year-old female who currently 6 weeks states states she had some abdominal cramping and some slight bleeding. States her bleeding is spotting in nature denies any clots states her pain is a 1 out of 10 she denies any worsening improving factors. Denies any vomiting diarrhea Date of Last Menstrual Period: 05/16/21 Associated symptoms: Reports abdominal pain; Deny headache(s) Review of Systems Const: Denies: fever(s), chills, body aches or change in appetite Eyes: Denies: blurry vision or eye discomfort ENMT: Denies: throat pain or dental pain Card: Denies: chest pain Resp: Denies: dyspnea GI: Reports: abdominal pain : Reports: vaginal bleeding Musc: Denies: neck pain or back pain Skin/Breast: Denies: rash Neuro: Denies: headache(s) Psych: Denies: depression Jorgito/Lymph: Denies: easy bruising All/Imm: Denies: urticaria PFSH ED PFSH: Medical History Anxiety and depression Diagnosed as a teenager and has used medications on and off in the past. Was on Celexa and BuSpar during her in 2019. Follows with PMD. Does not have a therapist. No pertinent past medical history Denies diabetes, asthma, hypertension, seizures, DVT/PE. PCP: Dr. Ledesma Surgical History S/P laparoscopy In 2010 for bilateral ovarian cysts---this surgery was performed by Dr. Vanegas Family History Father Diabetes Hypertension Heart disease of same Mother Hypertension Denies family history of Colon cancer Ovarian cancer Hyperlipidemia Breast cancer Uterine cancer Thyroid condition Stroke Social History Smoking and tobacco status: never smoked Second hand smoke exposure: Yes Current gender identity: Female Female Reproductive History: Date of last menstrual period: 11/30/21 Physical Exam Const: COMMON NORMALS: no acute distress, patient oriented x3 and healthy appearing HENMT: COMMON NORMALS: normocephalic and atraumatic HEAD & SCALP: normocephalic and atraumatic Eye: COMMON NORMALS: Equal, round and reactive pupils present and EOMs intact bilaterally PUPIL: Yes Equal, round and reactive pupils present Neck/C-Spine: COMMON NORMALS: full ROM and supple Chest: COMMONS NORMALS: normal inspection of the chest and normal palpation of entire chest wall Resp: COMMON NORMALS: normal respiratory effort, No retractions, No use of accessory muscles and clear to auscultation bilaterally AUSCULTATION: clear to auscultation bilaterally Cardio: COMMON NORMALS: regular rate, regular rhythm and No murmurs present (Cardio) RATE: regular rate RHYTHM: regular rhythm GI: COMMON NORMALS: Normal to inspection, nondistended, normoactive bowel sounds present, Soft to palpation, non-tender and no masses PALPATION: Yes Soft to palpation Extremity: COMMON NORMALS: normal to inspection and full ROM Neuro: COMMON NORMALS: patient oriented x3, moves all extremities and no focal motor deficits Psych: COMMON NORMALS: mental status grossly normal, Normal thought process present and cooperative THOUGHT PROCESS: Normal thought process present Skin: COMMON NORMALS: no rashes or lesions noted and no wounds GENERAL SKIN EXAM: no rashes or lesions noted Course Vital Signs: Vital signs: Vital Signs Temperature 97.7 F 05/24/22 17:36 Pulse Rate 76 05/24/22 17:36 Respiratory Rate 16 05/24/22 17:36 Blood Pressure 125/79 05/24/22 17:36 Pulse Oximetry 100 05/24/22 17:36 Oxygen Delivery Me thod 05/24/22 17:36 MDM - OB/Uterine Contractions Medical Decision Making Patient presents here with a threatened miscarriage she had a ultrasound that showed an IUP with heart rate her bleeding is minimal here she is O- we will give her RhoGAM she is stable for discharge she is to follow-up with PCP and return if worsening. Lab Data Radiology Impressions Ultrasound 05/24/22 18:16 IMPRESSION: 1. Single live intrauterine gestation. 2. No acute abnormality. Laboratory Results Ser , Semi-Qnt 17795.00 mIU/mL 05/24/22 20:00 Blood Type O Negative 05/24/22 20:00 Rho(D) Type Negative 05/24/22 20:00 Discharge Plan Discharge Patient Disposition: Home Clinical Impression: Threatened miscarriage Condition: Stable Prescriptions: No Action Unisom (doxylamine) 25 mg tablet 25 mg PO BEDTIME PRN (Reason: Sleep) promethazine-DM 6.25-15 mg/5 mL syrup 5 ml PO Q6H PRN (Reason: cough) Qty: 160 0RF azithromycin [Zithromax Z-Mega] 250 mg tablet See Rx Instructions PO .COMPLEX Qty: 6 0RF Rx Instructions: take 500 mg today (day 1), then 250 mg for 4 days (days 2-5) PO albuterol sulfate 90 mcg/actuation HFA aerosol inhaler 2 puff inhalation QID PRN (Reason: shortness of breath or wheezing) Qty: 8.5 0RF budesonide-formoterol [Symbicort] 160-4.5 mcg/actuation HFA aerosol inhaler 2 puff inhalation BID Qty: 10.2 0RF multivitamin Tablet 1 tab PO QAM acetaminophen [Tylenol Extra Strength] 500 mg Tablet 1,000 mg PO Q4H PRN (Reason: Pain) Isibloom 0.15-0.03 mg tablet 1 tab PO QAM ibuprofen 200 mg Tablet 600 mg PO Q4H PRN (Reason: Pain) Claritin 10 mg Tablet 10 mg PO DAILY promethazine 25 mg tablet 25 mg PO Q6H PRN (Reason: nausea and vomiting) Qty: 20 0RF Discharge Orders: Discharge ED (Routine); Ordered 05/24/22 Ordered By: Blas Aldrich Discharge Diet: Advance as tolerated Discharge Activity: Resume usual activity Patient Instructions: Threatened Miscarriage (ED) Coding Level of Care Code ED Chief Business Officer for Chg Fwd Exam Comprehensive
[2022-05-24 21:22] VITALS: BP 119/65; PULSE 64; RESP 16; O2SAT 100
[2022-05-24 22:07] VITALS: BP 130/72; PULSE 58; RESP 14; TEMP 36.7; O2SAT 100
[2022-05-24 22:20] VITALS: BP 130/72; PULSE 60; RESP 16; TEMP 36.8; O2SAT 99
== END 2022-05-24 22:35 | disposition home or self-care (01) ==
PROVIDERS: Emergency Provider Emergency Medicine
DX: O20.0 Threatened abortion (principal); Z3A.01 Less than 8 weeks gestation of pregnancy; Z77.22 Contact with and (suspected) exposure to environmental tobacco smoke (acute) (chronic)
CPT/HCPCS: 36430; 76801; 76817; 84702; 86850; 86900; 90384; 99284

== ENCOUNTER → 2022-05-29 09:40 | Outpatient (BNVA) | payer MEDICAID, SELFPAY | PROVIDERS: Visit Provider Nurse Practitioner Women's Health | DX: N92.6 Irregular menstruation, unspecified (principal) | CPT/HCPCS: 81000; 81025 ==

== ENCOUNTER → 2022-06-05 10:05 | Outpatient (BNVA) | payer MEDICAID, SELFPAY | PROVIDERS: Visit Provider Nurse Practitioner Family | DX: J11.1 Influenza due to unidentified influenza virus with other respiratory manifestations (principal); J06.9 Acute upper respiratory infection, unspecified | CPT/HCPCS: 87400 ==

== ENCOUNTER → 2022-06-29 11:55 | Outpatient (BNVA) | payer MEDICAID, SELFPAY | PROVIDERS: Visit Provider Obstetrics & Gynecology | DX: Z34.80 Encounter for supervision of other normal pregnancy, unspecified trimester (principal); O26.899 Other specified pregnancy related conditions, unspecified trimester; Z67.91 Unspecified blood type, Rh negative; A60.00 Herpesviral infection of urogenital system, unspecified; F41.9 Anxiety disorder, unspecified; F32.9 Major depressive disorder, single episode, unspecified | CPT/HCPCS: 80307; 84315; 85027; 86592; 86762; 86803; 86850; 86870; 86900; 87086; 87340; 87806 ==

== ENCOUNTER → 2022-07-16 13:29 | Outpatient (BNVA) | payer MEDICAID, SELFPAY | PROVIDERS: Visit Provider Obstetrics & Gynecology | DX: Z34.80 Encounter for supervision of other normal pregnancy, unspecified trimester (principal); Z12.4 Encounter for screening for malignant neoplasm of cervix; Z11.3 Encounter for screening for infections with a predominantly sexual mode of transmission | CPT/HCPCS: 84315; 87491; 87591; 87624; 87661 ==

== ENCOUNTER → 2022-07-16 13:29 | Outpatient (BNVA) | payer MEDICAID, SELFPAY | PROVIDERS: Visit Provider Obstetrics & Gynecology | DX: Z12.4 Encounter for screening for malignant neoplasm of cervix (principal); Z11.3 Encounter for screening for infections with a predominantly sexual mode of transmission; O26.899 Other specified pregnancy related conditions, unspecified trimester; Z67.91 Unspecified blood type, Rh negative; A60.00 Herpesviral infection of urogenital system, unspecified; F41.9 Anxiety disorder, unspecified; F32.9 Major depressive disorder, single episode, unspecified; J30.2 Other seasonal allergic rhinitis | CPT/HCPCS: 84315 ==

== ENCOUNTER → 2022-08-17 12:19 | Outpatient (BNVA) | payer MEDICAID, SELFPAY | PROVIDERS: Visit Provider Obstetrics & Gynecology | DX: O26.899 Other specified pregnancy related conditions, unspecified trimester (principal); Z67.91 Unspecified blood type, Rh negative | CPT/HCPCS: 80503 ==

== ENCOUNTER → 2022-08-22 15:45 | Outpatient (BNVA) | payer MEDICAID, SELFPAY | PROVIDERS: Visit Provider Nurse Practitioner Family | DX: N39.0 Urinary tract infection, site not specified (principal) | CPT/HCPCS: 81000 ==

== ENCOUNTER → 2022-08-30 14:13 | Outpatient (BNVA) | payer MEDICAID, SELFPAY | PROVIDERS: Visit Provider Obstetrics & Gynecology | DX: Z34.92 Encounter for supervision of normal pregnancy, unspecified, second trimester (principal); Z3A.20 20 weeks gestation of pregnancy | CPT/HCPCS: 76805 ==

== ENCOUNTER → 2022-09-25 14:38 | Outpatient (BNVA) | payer MEDICAID, SELFPAY | PROVIDERS: Visit Provider Nurse Practitioner Women's Health | DX: Z34.90 Encounter for supervision of normal pregnancy, unspecified, unspecified trimester (principal) | CPT/HCPCS: 82950; 84315 ==

== ENCOUNTER → 2022-10-23 11:23 | Outpatient (BNVA) | payer MEDICAID, SELFPAY | PROVIDERS: Visit Provider Obstetrics & Gynecology | DX: Z34.80 Encounter for supervision of other normal pregnancy, unspecified trimester (principal) | CPT/HCPCS: 84315; 85025; 86900 ==

== ENCOUNTER 2022-11-02 19:41 | Outpatient (CLI) | payer MEDICAID, SELFPAY ==
[2022-11-02] VITALS (12 sets, daily range): BP systolic 108–132; BP diastolic 57–84; PULSE 68–92; O2SAT 100; BMI 25.9
[2022-11-02 21:13] LABS: Bilirubin Urine Neg (Negative); Blood Urine 3+ (Negative); Glucose Urine UA Norm (Normal); Ketones Urine 1+ (Negative); Leukocyte Esterase Urine 2+ (Negative); Nitrate Urine Negative (Negative); Protein Urine Trace (Negative); Specific Gravity, Urine 1.015 (1.005-1.030); Urine Appearance SL Hazy (CLEAR); Urine Color Yellow (Yellow); Urobilinogen Urine Norm (Negative); pH Urine 6 (5-7)
[2022-11-02 21:16] LABS: Add Urine Culture? Yes; Bacteria Urine 2+ /hpf; RBC Urine 40-50 /hpf (0-2); Squamous Epithelial Cell Urine 0-4 /hpf (0-5); WBC Urine TOO NUMEROUS TO CNT /hpf (0-5)
[2022-11-02] MEDS: cefTRIAXone 1,000 MG, lidocaine 1% 2.1 ML in SYRINGE 1 EACH 2.1 MG IM (22:29)
== END 2022-11-02 22:35 | disposition home or self-care (01) ==
LOC: OPOB 19:42 → OBGYN 19:42
PROVIDERS: Visit Provider Obstetrics & Gynecology
DX: O26.899 Other specified pregnancy related conditions, unspecified trimester (principal); R10.9 Unspecified abdominal pain; M54.9 Dorsalgia, unspecified; Z3A.00 Weeks of gestation of pregnancy not specified
CPT/HCPCS: 59025; 81001; 87077; 87086; 87186; 96372; 99211; J0696

== ENCOUNTER → 2022-11-20 15:17 | Outpatient (BNVA) | payer MEDICAID, SELFPAY | PROVIDERS: Visit Provider Obstetrics & Gynecology | DX: Z34.80 Encounter for supervision of other normal pregnancy, unspecified trimester (principal) | CPT/HCPCS: 84315 ==

== ENCOUNTER 2022-11-23 15:25 | Outpatient (CLI) | payer MEDICAID, SELFPAY ==
[2022-11-23] VITALS (18 sets, daily range): BP systolic 112–140; BP diastolic 55–77; PULSE 57–109; RESP 15; O2SAT 100; BMI 26.3
[2022-11-23] MEDS: ondansetron 4 MG Tablet PO (15:55)
[2022-11-23] MEDS: acetaminophen 500 mg Tablet 1000 MG PO (16:14)
[2022-11-23 16:33] LABS: Bilirubin Urine Neg (Negative); Blood Urine Neg (Negative); Glucose Urine UA Norm (Normal); Ketones Urine Negative (Negative); Leukocyte Esterase Urine Negative (Negative); Nitrate Urine Negative (Negative); Protein Urine Neg (Negative); Urine Appearance Clear (CLEAR); Urine Color Yellow (Yellow); Urobilinogen Urine Neg (Negative); pH Urine 6 (5-7)
[2022-11-23 16:34] LABS: RBC Urine 0-4 /hpf (0-2); Squamous Epithelial Cell Urine 0-4 /hpf (0-5); WBC Urine 0-4 /hpf (0-5)
[2022-11-23 16:35] LABS: Add Urine Culture? No; Bacteria Urine TRACE /hpf
[2022-11-23] MEDS: hyDROXYzine 25 mg Capsule 50 MG PO (17:14)
[2022-11-23] MEDS: dextrose 5%-lactated ringers 1,000 ML 999 ML IV ×2 (17:22→18:28)
[2022-11-23] MEDS: terbutaline 1 mg/mL INJ 0.25 MG SUBCUT (17:39)
[2022-11-23] MEDS: betamethasone susp 6 mg/mL 5 mL 12 MG IM (17:42)
== END 2022-11-23 19:54 | disposition home or self-care (01) ==
LOC: OPOB 15:31 → OBGYN 15:31
PROVIDERS: Visit Provider Obstetrics & Gynecology
DX: O26.899 Other specified pregnancy related conditions, unspecified trimester (principal); R25.2 Cramp and spasm; R11.0 Nausea; Z3A.00 Weeks of gestation of pregnancy not specified
CPT/HCPCS: 36415; 59025; 81001; 96372; 99211; J0702; J3105; J7121; Q0162

== ENCOUNTER 2022-11-24 17:55 | Outpatient (CLI) | payer MEDICAID, SELFPAY ==
[2022-11-24] MEDS: betamethasone susp 6 mg/mL 5 mL 12 MG IM (18:05)
[2022-11-24 18:14] VITALS: BMI 26.3
== END 2022-11-24 18:10 | disposition home or self-care (01) ==
LOC: OPOB 18:00
PROVIDERS: Absent Provider Obstetrics & Gynecology; Visit Provider Obstetrics & Gynecology
DX: Z36.89 Encounter for other specified antenatal screening
CPT/HCPCS: 96372; J0702

== ENCOUNTER 2022-11-27 10:41 | Inpatient (IN) | payer MEDICAID, SELFPAY ==
[2022-11-27] VITALS (8 sets, daily range): BP systolic 102–124; BP diastolic 55–73; PULSE 71–76; RESP 15–17; TEMP 36.1–36.2; BMI 25.9
--- NOTE | 2022-11-27 10:47 | US_ITS ---
WS: [id number] RENAL ULTRASOUND HISTORY: pyelonephritis COMPARISON: None available. TECHNIQUE: 2-D and color Doppler imaging of the kidney submitted. Right kidney: 9.0 cm x 4.5 cm x 3.9 cm. Cortex: 1.1 cm Normal echogenicity with no hydronephrosis or mass. Left kidney: 10.5 cm x 3.9 cm x 4.8 cm. Cortex: 1.3 cm Normal echogenicity with no hydronephrosis or mass. Aorta: Normal. Urinary Bladder: Normal distention. US/US renal BI* [id number] IMPRESSION: Normal renal ultrasound.
[2022-11-27] MEDS: lactated ringers 1,000 ML 125 ML IV ×2 (11:10→20:12)
[2022-11-27 11:40] LABS: Basophils % 0.4 %; Eosinophils # 0.1 10^3/uL (0.0-0.8); Eosinophils % 0.8 %; Hematocrit 38.3 % (37.0-47.0); Hemoglobin 11.8 g/dL (11.5-15.3); Lymphocytes # 2.6 10^3/uL (0.8-4.8); Mean Corpuscular HGB Conc 30.8 g/dL (30.0-36.0); Mean Corpuscular Hemoglobin 29.8 pg (28.0-34.0); Mean Corpuscular Volume 96.7 fl (81-99); Mean Platelet Volume 12.2 fL (7.4-10.4); Monocytes # 1.3 10^3/uL (0.2-0.9); Monocytes % 11.2 %; Neutrophils # 6.95 10^3/uL (1.8-7.7); Neutrophils % 61.7 %; Nucleated Red Blood Cells % 0 %; Platelet Count 150 10^3/cmm (130-400); Red Blood Count 3.96 10^6/uL (4.1-5.3); Red Cell Distribution Width 13.8 % (12.1-15.1); White Blood Count 11.3 10^3/uL (4.0-10.0)
[2022-11-27] MEDS: cefTRIAXone 1,000 MG in sodium chloride 0.9% (plus) 50 ML 100 MG IV (13:35)
[2022-11-27] MEDS: HYDROcodone-acetaminophen 5-325 mg Tablet PO ×2 (16:59→22:12)
--- NOTE | 2022-11-27 17:26 | PM.OPHPUD ---
Labor & Delivery H&P Update Date of Procedure: November 27, 2022 Date H&P Performed: 11/27/22 H&P update information: I have reviewed H&P completed within last 30 days, I have examined patient prior to procedure and No changes to prior documentation Admission Diagnosis:
[2022-11-28 04:49] VITALS: BP 98/57; PULSE 75; TEMP 36.3
[2022-11-28] MEDS: HYDROcodone-acetaminophen 5-325 mg Tablet PO ×3 (04:49→22:04)
[2022-11-28] MEDS: lactated ringers 1,000 ML 125 ML IV ×3 (04:50→22:10)
[2022-11-28 10:00] VITALS: BP 115/67; PULSE 81; TEMP 36.1
[2022-11-28 10:41] VITALS: RESP 15
[2022-11-28 11:05] LABS: Actim Prom Negative
[2022-11-28] MEDS: cefTRIAXone 1,000 MG in sodium chloride 0.9% (plus) 50 ML 100 MG IV (12:12)
--- NOTE | 2022-11-28 17:30 | PM.PN ---
Subjective Subjective: Ms. Durand is a 31 year old established patient with LMP of 04/10/2022, CONNOR 01/15/2023 based on LMP placing her at 33-1/7 weeks. With pyelonephritis refers CVA tenderness better. Vitals/I&O/Wt Last Vital Signs Temp 97.0 F L 11/29/22 11:03 Pulse 81 11/29/22 11:04 Resp 15 11/29/22 10:00 BP 132/73 11/29/22 11:04 O2 Del Method Room Air 11/27/22 10:49 11/28/22 11/29/22 11/29/22 22:59 06:59 14:59 Intake Total 999 Balance 999 Physical Exam Narrative: GA: Alert and oriented ?3. Lungs: Clear to auscultation bilaterally. Heart: Regular rhythm and rate. Abdomen: Gravid, full the height equals dates, nontender. ICE PLANT OPERATOR: SVE; dilation: 0 cm, effacement: 0%, station: -5, presentation: Cephalic, membranes: Intact membrane. Extremities: no edema, no cyanosis, no calves pain. heart tracing: Basal rate: 140's bpm, Variability: moderate, Accelerations: present, Decelerations: absent, Contraction: No contraction. Data 11/27/22 10:55 A&P Assessment and plan (1) Pyelonephritis affecting in third trimester: Mrs. Durand 31-year-old female G2, P1 placing her at 33-1/7 weeks with pyelonephritis admitted for IV antibiotic therapy. Symptoms improving. Will continue IV antibiotic therapy for an additional 24 hours then will change to p.o. medication. Attestations Medical Necessity Statement*: In my professional opinion poor admitting diagnosis Coding Level of Care Code Acute Code for Chg Fwd Diagnoses Pyelonephritis affecting in third trimester O23.03
[2022-11-28 18:50] VITALS: BP 127/65; PULSE 81
[2022-11-28] MEDS: docusate sodium 100 mg Capsule PO (20:59)
[2022-11-28 22:01] VITALS: TEMP 35.9
[2022-11-28 22:02] VITALS: BP 113/55; PULSE 70
[2022-11-29] VITALS (7 sets, daily range): BP systolic 121–132; BP diastolic 58–73; PULSE 70–81; RESP 15–16; TEMP 36.1–36.2
[2022-11-29] MEDS: HYDROcodone-acetaminophen 5-325 mg Tablet PO (07:13)
[2022-11-29] MEDS: cefTRIAXone 1,000 MG in sodium chloride 0.9% (plus) 50 ML 100 MG IV (10:24)
--- NOTE | 2022-11-29 11:35 | P.DS_ITS ---
Discharge Providers DELIVERY PERSON Date of Admission: 11/27/22 10:41 Date of Discharge: 11/29/22 Attending Provider at Admission: Pernell Ying MD Attending Provider at Discharge: Pernell Ying MD Primary DELIVERY PERSON: Pernell Ying MD Diagnoses at Discharge Discharge Diagnosis (1) Pyelonephritis affecting in third trimester: Details from hospital stay: Mrs. Santana 31-year-old female G2, P1 with an estimated gestational age at 33 weeks and 2 days admitted for antibiotic IV therapy due to pyelonephritis. Status: Acute Reason for Visit Reason for Visit: pylonephritis Hospital Course Hospital Course Mrs. Sanatna 31-year-old female G2, P1 with an estimated gestational age at 33 weeks and 2 days admitted for antibiotic IV therapy due to pyelonephritis. She received IV antibiotic therapy for 48 hours. CVA tenderness have resolved. She is afebrile hemodynamically stable. Physical Exam Narrative: GA: Alert and oriented ?3. Lungs: Clear to auscultation bilaterally. Heart: Regular rhythm and rate. Abdomen: Gravid, full the height equals dates, nontender. MARINE OIL TERMINAL SUPERINTENDENT: SVE; dilation: 0 cm, effacement: 0%, station: -5, presentation: Cephalic, membranes: Intact membrane. Extremities: no edema, no cyanosis, no calves pain. heart tracing: Basal rate: 140's bpm, Variability: moderate, Accelerations: present, Decelerations: absent, Contraction: No contraction. History History History 2 Term 1 0 Miscarriages/Ectopic 0 Living Children 1 Discharge Data Studies Completed and Pending Completed Studies During Hospitalization Category Date Time Status US renal BI* [id number] Stat Ultrasound 11/27/22 10:47 Completed Radiology Impressions Renal Ultrasound 11/27/22 10:47 IMPRESSION: Normal renal ultrasound. Laboratory Results WBC 11.3 10^3/uL (4.0-10.0) H 11/27/22 10:55 RBC 3.96 10^6/uL (4.1-5.3) L 11/27/22 10:55 Hgb 11.8 g/dL (11.5-15.3) 11/27/22 10:55 Hct 38.3 % (37.0-47.0) 11/27/22 10:55 MCV 96.7 fl (81-99) 11/27/22 10:55 MCH 29.8 pg (28.0-34.0) 11/27/22 10:55 MCHC 30.8 g/dL (30.0-36.0) 11/27/22 10:55 RDW 13.8 % (12.1-15.1) 11/27/22 10:55 Plt Count 150 10^3/cmm (130-400) 11/27/22 10:55 MPV 12.2 fL (7.4-10.4) H 11/27/22 10:55 Neut % (Auto) 61.7 % 11/27/22 10:55 Lymph % (Auto) 23.0 % 11/27/22 10:55 [place] % (Auto) 11.2 % 11/27/22 10:55 Eos % (Auto) 0.8 % 11/27/22 10:55 Baso % (Auto) 0.4 % 11/27/22 10:55 Neut # (Auto) 6.95 10^3/uL (1.8-7.7) 11/27/22 10:55 Lymph # (Auto) 2.6 10^3/uL (0.8-4.8) 11/27/22 10:55 [place] # (Auto) 1.3 10^3/uL (0.2-0.9) H 11/27/22 10:55 Eos # (Auto) 0.1 10^3/uL (0.0-0.8) 11/27/22 10:55 Baso # (Auto) 0.0 10^3/uL (0.0-0.1) 11/27/22 10:55 Nucleated RBC % (auto) 0 % 11/27/22 10:55 Nucleated RBCs # 0.0 /100WBC 11/27/22 10:55 Insulin-like GF I Negative 11/28/22 10:35 Vitals Last Vital Signs Temp 97.0 F L 11/29/22 11:03 Pulse 81 11/29/22 11:04 Resp 15 11/29/22 10:00 BP 132/73 11/29/22 11:04 O2 Del Method Room Air 11/27/22 10:49 Discharge Plan Discharge Patient Disposition: Home Condition: Stable Prescriptions: New nitrofurantoin macrocrystal 100 mg capsule 100 mg PO BID 7 Days Qty: 14 0RF Rx Instructions: must administer with a meal/food Continued prenat.vits,naila,tah-uyzu-cooup Tablet 1 tab PO DAILY ascorbate calcium (vitamin C) 500 mg tablet 500 mg PO DAILY valacyclovir [Valtrex] 500 mg tablet 500 mg PO BID Qty: 60 11RF loratadine [Claritin] 10 mg Tablet 10 mg PO DAILY Discharge Orders: Discharge Order (Routine); Ordered 11/29/22 Ordered By: Pernell Ying Referrals: Pernell Ying MD [Physician] - (As scheduled) Discharge Diet: Usual diet Discharge Activity: Resume usual activity Patient Instructions: Labor (GEN), Kidney Infection (GEN), Opioid Safety, OB Undelivered Discharge, Pyelonephritis Discharge Attestations DELIVERY PERSON Time Spent in Discharge Care*: less than 30 min Coding Level of Care Code Acute Code for Chg Fwd Diagnoses Pyelonephritis affecting in third trimester O23.03
== END 2022-11-29 11:50 | disposition home or self-care (01) | DRG 833 ==
LOC: OPOB 11-28 08:03 → OBGYN 11-28 08:03
PROVIDERS: Admitting Provider Obstetrics & Gynecology; Visit Provider Obstetrics & Gynecology
DX: O23.03 Infections of kidney in pregnancy, third trimester (principal); Z3A.33 33 weeks gestation of pregnancy; Z37.0 Single live birth; O99.343 Other mental disorders complicating pregnancy, third trimester; F32.A Depression, unspecified; F41.9 Anxiety disorder, unspecified; Z88.0 Allergy status to penicillin; O26.893 Other specified pregnancy related conditions, third trimester; F10.11 Alcohol abuse, in remission; F12.11 Cannabis abuse, in remission
CPT/HCPCS: 36415; 59025; 76770; 84112; 84315; 85025; 99211; J0696; J7120

== ENCOUNTER 2022-12-13 07:17 | Outpatient (CLI) | payer MEDICAID, SELFPAY ==
--- NOTE | 2022-12-13 07:15 | US_ITS ---
WS: [id number] LIMITED OBSTETRICAL ULTRASOUND HISTORY: O26.10 - Low weight gain in , unspecified trimester COMPARISON: 05/24/2022, 08/30/2022. Presentation: Breech. Cervix: Obscured by the head and late gestational age. Placenta: Posterior, no previa or abruption. Grade: 2 HEART: FHR of 147 BPM. measurements: BPD = 8.5 cm = 34w0d; 25th percentile HC = 32.0 cm = 36w0d; 41st percentile AC = 30.7 cm = 34w5d; 47th percentile FL = 6.7 cm = 34w3d; 27th percentile There are several pockets of amniotic fluid identified. At least 1 pocket is greater than 2 cm in dep th. EFW: 2490 g; 55th percentile AGA by ultrasound: 34w6d CONNOR by ultrasound: 01/18/2023 US/[place] [id number] IMPRESSION: 1. Single intrauterine gestation of 34 weeks 6 days with an EDC of 01/18/2023. 2. Normal growth. Appropriate age as compared to the first trimester ultrasoun d. 3. Grade 2 placenta.
== END 2022-12-13 07:18 | disposition home or self-care (01) ==
PROVIDERS: PCP Family Medicine; Visit Provider Nurse Practitioner Women's Health
DX: O26.13 Low weight gain in pregnancy, third trimester (principal); Z3A.34 34 weeks gestation of pregnancy
CPT/HCPCS: 76816

== ENCOUNTER 2022-12-18 13:29 | Outpatient (CLI) | payer MEDICAID, SELFPAY ==
[2022-12-18 13:39] VITALS: BP 127/69; PULSE 71
[2022-12-18 13:48] VITALS: TEMP 36.2
[2022-12-18 13:54] VITALS: BP 118/65; PULSE 83
[2022-12-18 14:09] VITALS: BP 119/68; PULSE 77
== END 2022-12-18 14:35 | disposition home or self-care (01) ==
LOC: OPOB 13:30 → OBGYN 13:32
PROVIDERS: PCP Obstetrics & Gynecology; Visit Provider Obstetrics & Gynecology
DX: O47.9 False labor, unspecified (principal); Z3A.00 Weeks of gestation of pregnancy not specified
CPT/HCPCS: 59025; 99211

== ENCOUNTER 2022-12-19 16:39 | Observation (INO) | payer MEDICAID, SELFPAY ==
[2022-12-19 13:00] VITALS: BMI 26.6
[2022-12-19 13:13] VITALS: BP 121/71; PULSE 80; RESP 18; TEMP 36.2
[2022-12-19 13:40] VITALS: RESP 17
--- NOTE | 2022-12-19 13:45 | US_ITS ---
WS: [id number] ULTRASOUND RENAL TECHNIQUE: Ultrasound examination of both kidneys. CLINICAL INFORMATION: flank pain COMPARISON: Ultrasound November 27, 2022 FINDINGS: RIGHT: Right kidney is normal in size and appearance. Echogenicity: Normal. Cortical thickness: 1.1 cm; Normal. Hydronephrosis: None. Perinephric fluid: None. Right kidney measures: 9.1 cm x 4.3 cm x 4.1 cm. LEFT: Left kidney is normal in size and appearance. Echogenicity: Normal. Cortical thickness: 1.8 cm; Normal. Hydronephrosis: None. Perinephric fluid: None. Left kidney measures: 9.9 cm x 4.8 cm x 4.9 cm. Normal visualized aorta. US/US renal BI* [id number] IMPRESSION: 1. No hydronephrosis in either kidney. 2. Normal bladder.
[2022-12-19] MEDS: HYDROcodone-acetaminophen 5-325 mg Tablet 1 TAB PO ×2 (14:00→22:13)
[2022-12-19] MEDS: sodium chloride 0.9% 1,000 ML 999 ML IV ×2 (14:11→15:18)
[2022-12-19] MEDS: cefTRIAXone 2,000 MG in sodium chloride 0.9% (plus) 50 ML 100 MG IV (14:12)
[2022-12-19 15:06] LABS: Add Urine Culture? No; Bilirubin Urine Neg (Negative); Blood Urine Neg (Negative); Glucose Urine UA Norm (Normal); Ketones Urine Negative (Negative); Leukocyte Esterase Urine Negative (Negative); Nitrate Urine Negative (Negative); Protein Urine Neg (Negative); RBC Urine 0-4 /hpf (0-2); Squamous Epithelial Cell Urine 0-4 /hpf (0-5); Urine Appearance Clear (CLEAR); Urine Color Yellow (Yellow); Urobilinogen Urine Norm (Negative); WBC Urine 0-4 /hpf (0-5); pH Urine 5 (5-7)
[2022-12-19 15:10] VITALS: RESP 16
[2022-12-19 15:17] VITALS: BP 116/64; PULSE 71; RESP 16; TEMP 36.8
[2022-12-19] MEDS: dextrose 5%-sod chloride 0.9% 1,000 ML 150 ML IV ×2 (16:56→23:50)
[2022-12-19] MEDS: valACYclovir 1,000 mg Tablet 500 MG PO (18:09)
[2022-12-19 22:14] VITALS: BP 113/59; PULSE 71; RESP 18; TEMP 36.6
[2022-12-20 05:18] VITALS: BP 104/50; PULSE 68; RESP 16; TEMP 36.8
[2022-12-20] MEDS: HYDROcodone-acetaminophen 5-325 mg Tablet 1 TAB PO (05:19)
[2022-12-20] MEDS: dextrose 5%-sod chloride 0.9% 1,000 ML 150 ML IV (05:19)
[2022-12-20 07:48] VITALS: TEMP 36
[2022-12-20 07:49] VITALS: BP 105/61; PULSE 74
[2022-12-20 09:00] VITALS: BP 105/61; PULSE 74; RESP 16; TEMP 36.1
--- NOTE | 2022-12-20 12:04 | PM.OPHPUD ---
Labor & Delivery H&P Update Date of Procedure: December 20, 2022 Date H&P Performed: 12/13/22 H&P update information: I have reviewed H&P completed within last 30 days and Changes to prior documentation as noted here Changes to previous documentation: The patient is being admitted for observation for suspected pyelonephritits. She is having bladder and left flank pain. It started this morning and progressively worsened. She has a long history of uti and pyelonephritis. Admission Diagnosis:
== END 2022-12-20 10:07 | disposition home or self-care (01) ==
LOC: OPOB 16:39 → OBGYN 12-20 09:09
PROVIDERS: Admitting Provider Obstetrics & Gynecology; PCP Obstetrics & Gynecology; Visit Provider Obstetrics & Gynecology
DX: O26.899 Other specified pregnancy related conditions, unspecified trimester (principal); R10.9 Unspecified abdominal pain; R39.89 Other symptoms and signs involving the genitourinary system; Z87.440 Personal history of urinary (tract) infections; Z3A.00 Weeks of gestation of pregnancy not specified
CPT/HCPCS: 59025; 76770; 81001; 87086; 99211; G0378; J0696; J7030; J7042

== ENCOUNTER → 2022-12-20 08:00 | Outpatient (BNVA) | payer MEDICAID, SELFPAY | PROVIDERS: PCP Obstetrics & Gynecology; Visit Provider Nurse Practitioner Family | DX: M54.9 Dorsalgia, unspecified (principal) | CPT/HCPCS: 81000 ==

== ENCOUNTER → 2022-12-21 15:06 | Outpatient (BNVA) | payer MEDICAID, SELFPAY | PROVIDERS: PCP Obstetrics & Gynecology; Visit Provider Obstetrics & Gynecology | DX: Z34.80 Encounter for supervision of other normal pregnancy, unspecified trimester (principal) | CPT/HCPCS: 81000; 87081 ==

== ENCOUNTER 2023-01-13 06:31 | Inpatient (IN) | payer MEDICAID, SELFPAY ==
[2023-01-13] VITALS (33 sets, daily range): BP systolic 98–138; BP diastolic 51–91; PULSE 68–97; RESP 15–17; TEMP 36.1–36.7; O2SAT 96–98; BMI 27.1
--- NOTE | 2023-01-13 06:45 | P.HP_ITS ---
Providers/Chief Complaint Admitting Physician: Sonny Warner MD Primary RECREATION THERAPY AIDES TEACHER: Pernell Yign MD Primary Care Provider: Sonny Warner MD Chief Complaint: Possible ROM, Contractions HPI RECREATION THERAPY AIDES TEACHER History of Present Illness 32 y.o. EDC January 15, 2023 At 39 w 5 d No complications Presented to L&D c/o fluid leakage and UCs Found to be in breech presentation POBHx: h/o at 36 weeks PMHx: h/o anxiety ? depression Past alcohol use Past cannabis use Genital HSV PSHx: laparoscopy All: penicillins, rash Present Details : 2 Para: 1 Labs Rubella: Immune RPR: Negative GBS: Negative Medications/Allergies Home Medications Medication Instructions Recorded Confirmed Last Taken Type prenat.vits,naila,mme-xouc-cnwsr 1 tab PO DAILY 05/29/22 01/13/23 01/13/23 History valacyclovir 500 mg tablet 500 mg PO BID #60 tabs 05/29/22 01/13/23 01/13/23 Rx (Valtrex) hydroxyzine HCl 25 mg tablet 25 mg PO .hs PRN itching #30 tabs 12/04/22 01/13/23 12/19/22 08:00 Rx Allergies Allergy/AdvReac Type Severity Reaction Status Date / Time Penicillins Allergy Intermediate ALGY-Rash Verified 01/13/23 07:36 PFS RECREATION THERAPY AIDES TEACHER PFSH: Medical History Alcohol use disorder, moderate, in sustained remission Anxiety and depression Diagnosed as a teenager and has used medications on and off in the past. Was on Celexa and BuSpar during her in 2019. Follows with PMD. Does not have a therapist. Cannabis use disorder, moderate, in sustained remission Genital HSV No pertinent past medical history Denies diabetes, asthma, hypertension, seizures, DVT/PE. PCP: Dr. Ledesma Surgical History S/P laparoscopy In 2010 for bilateral ovarian cysts---this surgery was performed by Dr. Vanegas Family History Father Diabetes Hypertension Heart disease of same Hyperlipidemia Mother Hypertension Hyperlipidemia Denies family history of Colon cancer Ovarian cancer Breast cancer Uterine cancer Thyroid condition Stroke History History History 2 Term 1 0 Miscarriages/Ectopic 0 Living Children 1 Care CONNOR Calculator Estimated Delivery Date Method Current WG Current Estimate 01/15/23 LMP (Certain) 39w 6d Other Estimates 01/13/23 Ultrasound #1 40w 1d Specific Issues/Plans * HSV- first outbreak at 34 weeks-- started treatment and cont suppression * ANXIETY/DEPRESSION * Rh Negative ; rhoGam given 10/23/22 (1st trimester) * Positive anti-D antibodies s/p rhoGam injection * HX DELIVERY at 36 wks * Pyelonephritis-- third trimester Vitals/I&O/Wt Last Vital Signs Temp 97.0 F L 01/13/23 23:14 Pulse 74 01/13/23 23:14 Resp 17 01/13/23 09:30 BP 134/63 01/13/23 23:14 Pulse Ox 98 01/13/23 09:30 O2 Del Method Room Air 01/13/23 12:08 01/13/23 01/13/23 01/14/23 14:59 22:59 06:59 Intake Total 100 / 100 0 / 100 Output Total 320 / 320 700 / 1020 500 / 1520 Balance -220 / -220 -700 / -920 -500 / -1420 Weight last 48 hrs Weight 148 lb Weight 148 lb Physical Exam Narrative: Weight 148 lbs; 5?2? VS normal Comfortable Awake, alert, appropriate Lungs: clear Cor: RRR Abd: soft Cx: 1 cm Ext: normal Bedside sono breech fetus External monitor: heart tracing good variability, + accelerations Blood type Rh negative Urinary Catheter Management: Miller: Cath Placed During This Visit: yes, but has since been removed by the nurse Reason for Continuing Indwelling Catheter: Decision to DC Catheter Urinary Catheter Date of Insertion: 01/13/23 Urinary Catheter Time of Insertion: 07:57 Date Urinary Catheter Removed: 01/13/23 Time Urinary Catheter Discontinued: 22:05 Data 01/13/23 20:55 A&P Assessment and plan (1) Supervision of other normal : (2) Breech presentation of fetus: 39w 5 d In labor Breech fetus Recommend proceeding to for delivery Procedure and risks explained to patient, including risks of infection; bleedin g; injury to internal organs, such as bladder, bowel; risks of anesthesia; blood transfusions if needed Patient understands and wants to proceed Patient has rash with penicillins, no shortness of breath or cardiovascular collapse Ok to give Ancef preop Attestations Medical Necessity Statement*: patient at 39 w 5 d, in active labor, with breech fetus Coding Level of Care Code Acute Code for Chg Fwd Diagnoses Supervision of other normal Z34.80 Breech presentation of fetus O32.1XX0 Time Spent (min) 60
[2023-01-13] MEDS: citric acid-sodium citrate 30 mL UDC PO (07:29)
[2023-01-13] MEDS: metoclopramide 5 mg/mL SDV 2 mL 10 MG IVP (07:29)
[2023-01-13] MEDS: famotidine 20 mg/2 mL INJ IVP (07:29)
[2023-01-13] MEDS: lactated ringers 1,000 ML 999 ML IV (07:30)
[2023-01-13] MEDS: ceFAZolin 2,000 MG in sodium chloride 0.9% (plus) 50 ML 100 MG IV (07:30)
[2023-01-13 07:34] LABS: Basophils # 0.1 10^3/uL (0.0-0.1); Basophils % 0.4 %; Eosinophils # 0.2 10^3/uL (0.0-0.8); Eosinophils % 1.6 %; Hemoglobin 14.4 g/dL (11.5-15.3); Lymphocytes # 3.1 10^3/uL (0.8-4.8); Lymphocytes % 24.6 %; Mean Corpuscular HGB Conc 33.5 g/dL (30.0-36.0); Mean Corpuscular Hemoglobin 30.1 pg (28.0-34.0); Mean Corpuscular Volume 89.8 fl (81-99); Mean Platelet Volume 11.6 fL (7.4-10.4); Monocytes # 1.1 10^3/uL (0.2-0.9); Monocytes % 8.9 %; Neutrophils # 7.98 10^3/uL (1.8-7.7); Neutrophils % 62.6 %; Nucleated Red Blood Cells % 0 %; Platelet Count 141 10^3/cmm (130-400); Red Blood Count 4.79 10^6/uL (4.1-5.3); Red Cell Distribution Width 14.3 % (12.1-15.1); White Blood Count 12.7 10^3/uL (4.0-10.0)
--- NOTE | 2023-01-13 07:37 | ANES.PREANE2 ---
Pre-Anesthetic Assessment Height/Weight: Height 1.57 m Pulse BP 83 135/82 01/13/23 07:17 01/13/23 07:17 Familial anesthetic complications: None Was Beta Juancarlos taken within 24 hours: N/A Was Clonidine taken within 24 hours: N/A Last intake: > 8 hrs Social No alcohol and No tobacco Exam alert, oriented x 3, clear to auscultation bilaterally and regular rate & rhythm Airway Mallampati: Class I Dentition: full Anesthetic Plan ASA status: 2 Anesthesia: Regional (specify below) Risk of > 500 ml blood loss (7ml/kg in children): Yes, adequate IV access and fluids planned Medications/Allergies Home Medications Medication Instructions Recorded Confirmed Last Taken Type loratadine 10 mg tablet (Claritin) 10 mg PO DAILY 05/30/21 01/01/23 12/19/22 08:00 History ascorbate calcium (vitamin C) 500 500 mg PO DAILY 05/29/22 01/01/23 12/19/22 08:00 History mg tablet prenat.vits,naila,hyn-mcnu-nradg 1 tab PO DAILY 05/29/22 01/01/23 12/19/22 08:00 History valacyclovir 500 mg tablet 500 mg PO BID #60 tabs 05/29/22 01/01/23 12/19/22 08:00 Rx (Valtrex) hydroxyzine HCl 25 mg tablet 25 mg PO .hs PRN itching #30 tabs 12/04/22 01/01/23 12/19/22 08:00 Rx Allergies Allergy/AdvReac Type Severity Reaction Status Date / Time Penicillins Allergy Intermediate ALGY-Rash Verified 01/13/23 07:36 Current Medications Generic Name Dose Route Start Last Admin Trade Name Freq PRN Reason Stop Dose Admin Lactated Ringer's 1,000 mls @ 999 mls/hr 01/13/23 07:01 01/13/23 07:30 Lactated Ringers IV 01/13/23 08:01 999 mls/hr .Q1H1M ONE Administration PFSH Anesthesia Medical History Alcohol use disorder, moderate, in sustained remission Anxiety and depression Diagnosed as a teenager and has used medications on and off in the past. Was on Celexa and BuSpar during her in 2019. Follows with PMD. Does not have a therapist. Cannabis use disorder, moderate, in sustained remission Genital HSV No pertinent past medical history Denies diabetes, asthma, hypertension, seizures, DVT/PE. PCP: Dr. Ledesma Surgical History S/P laparoscopy In 2010 for bilateral ovarian cysts---this surgery was performed by Dr. Vanegas Family History Father Diabetes Hypertension Heart disease of same Hyperlipidemia Mother Hypertension Hyperlipidemia Denies family history of Colon cancer Ovarian cancer Breast cancer Uterine cancer Thyroid condition Stroke Data Anesthesia 01/13/23 07:00 Short CBC 01/13/23 Range/Units 07:00 WBC 12.7 H (4.0-10.0) 10^3/uL Hgb 14.4 (11.5-15.3) g/dL Hct 43.0 (37.0-47.0) % MCV 89.8 (81-99) fl Plt Count 141 (130-400) 10^3/cmm Neut % (Auto) 62.6 % Neut # (Auto) 7.98 H (1.8-7.7) 10^3/uL Cardiac Studies: No Data to Display
--- NOTE | 2023-01-13 07:50 | PM.OP ---
Operative Report Date of procedure: January 14, 2023 Pre-op diagnosis: 39 weeks gestation Uterine contractions Spontaneous rupture of membranes Breech fetus Post-op diagnosis: same Post-op findings: Vigorous Normal placenta and cord Cord blood obtained Normal tubes and ovaries Procedure done: primary low-transverse Surgeon: Sonny Warner MD Anesthesia: Other Estimated blood loss (mL): 600 Complications: none Condition: stable Disposition: floor Procedure: Informed consent signed The patient was taken to the OR and placed supine in the left lateral tilt position. Spinal anesthesia and Miller catheter were already in place. The abdomen was prepped and draped in the usual sterile fashion. Ancef 2 Gms IV infusing. A Pfannenstiel incision was made and carried down through skin and subcutaneous tissue. The fascia was incised and extended laterally with Baca scissors. The fascia was from the underlying rectus muscles. The rectus muscles were split in the midline. The peritoneum was entered bluntly, avoiding underlying organs. A bladder flap was created. A low transverse uterine incision was made and extended laterally bluntly. Clear amniotic fluid was seen. The baby was delivered in breech presentation atraumatically. The baby was suctioned. The cord was clamped and cut. The baby was handed to an awaiting application programmer analyst. Cord blood was obtained. The placenta was manually removed complete and intact. The uterus was left in situ. The uterine cavity was bluntly curetted with wet laps. The uterine incision was then closed with a O-chromic suture ligature. Adequate hemostasis was seen. The fascia was then closed with an O-Vicryl suture ligature. Additional interrupted stitches of O-Vicryl were used for fascial closure. The subcutaneous tissue was irrigated and inspected for hemostasis. The skin was then re-approximated using a subcuticular stitch of 3-O plain. The patient was then taken to the recovery room Postop condition: stable EBL: 600 cc Complications: none Sponge, needle, and instrument counts were correct x two
--- NOTE | 2023-01-13 10:00 | ANE.PACU2 ---
Inpatient post-anesthesia follow up: Airway intact: Yes Vital signs: Temperature 98.0 F Pulse Rate 78 Respiratory Rate 17 Blood Pressure 109/67 Pulse Oximetry 98 Oxygen Delivery Me thod Room Air Oxygen Flow Rate Fraction of Inspir ed Oxygen Hydration adequate: Yes Nausea and vomiting: Yes Pain level: 1 Mental status: Baseline
[2023-01-13] MEDS: ketorolac 30 mg/mL INJ IVP ×2 (15:11→21:17)
[2023-01-13] MEDS: dextrose 5%-lactated ringers 1,000 ML 125 ML IV (15:11)
[2023-01-13] MEDS: docusate sodium 100 mg Capsule PO (19:38)
[2023-01-13 21:30] LABS: Hematocrit 37.4 % (37.0-47.0); Hemoglobin 12.2 g/dL (11.5-15.3); Mean Corpuscular HGB Conc 32.6 g/dL (30.0-36.0); Mean Corpuscular Hemoglobin 29.8 pg (28.0-34.0); Mean Corpuscular Volume 91.4 fl (81-99); Mean Platelet Volume 12.3 fL (7.4-10.4); Platelet Count 121 10^3/cmm (130-400); Red Blood Count 4.09 10^6/uL (4.1-5.3); White Blood Count 14.7 10^3/uL (4.0-10.0)
--- NOTE | 2023-01-13 22:17 | PC.NURSE ---
Pt ambulating in [place] at 2210. Pt verbalized passing flatus at this time. Orders put in to advance diet.
[2023-01-14] VITALS (9 sets, daily range): BP systolic 100–119; BP diastolic 58–75; PULSE 67–75; RESP 15–18; TEMP 35.9–36.9
[2023-01-14] MEDS: ketorolac 30 mg/mL INJ IVP (03:06)
[2023-01-14] MEDS: ferrous sulfate EC 325 mg Tablet PO ×2 (07:54→18:15)
[2023-01-14] MEDS: docusate sodium 100 mg Capsule PO ×2 (07:54→18:15)
[2023-01-14] MEDS: HYDROcodone-acetaminophen 5-325 mg Tablet PO ×4 (07:54→21:27)
[2023-01-14] MEDS: prenatal vitamin Capsule 1 CAP PO (07:54)
[2023-01-14] MEDS: ibuprofen 800 mg tablet PO ×3 (08:31→20:12)
[2023-01-14] MEDS: valACYclovir 1,000 mg Tablet 500 MG PO ×2 (11:14→18:15)
--- NOTE | 2023-01-14 11:35 | PM.OBGYPN ---
CUSTOMER EXPERIENCE MANAGER Subjective Subjective: Interval history: c/o moderate to severe incisional pain, especially on left side, relieved with pain medication no bleeding, nausea, vomiting tolerating PO well voiding and ambulating well caring for infant without any difficulties Labor: Station: -2 Amniotic Membrane Status: Ruptured Monitor Mode: External Contraction Pattern: Irregular Vitals/I&O/Wt Last Vital Signs Temp 97.2 F L 01/15/23 10:05 Pulse 84 01/15/23 13:15 Resp 15 01/15/23 13:15 BP 147/79 01/15/23 13:15 Pulse Ox 100 01/15/23 13:15 O2 Del Method Room Air 01/13/23 12:08 Physical Exam Narrative: afebrile, VS normal comfortable, awake, alert Lungs: clear Cor: RRR Abd: soft, nondistended. Moderate tenderness along incision fundus firm wound clean and dry Ext: normal Urinary Catheter Management: Gr[place]on: Cath Placed During This Visit: yes, but has since been removed by the nurse Reason for Continuing Indwelling Catheter: Decision to DC Catheter Urinary Catheter Date of Insertion: 01/13/23 Urinary Catheter Time of Insertion: 07:57 Date Urinary Catheter Removed: 01/13/23 Time Urinary Catheter Discontinued: 22:05 Data 01/13/23 20:55 A&P Assessment and plan (1) Status post : POD #1 primary low-transverse doing well continue postop care remove grullon ambulate Attestations Medical Necessity Statement*: patient is s/p c-secton Coding Level of Care Code Acute Code for Chg Fwd Diagnoses Status post Z98.891 Time Spent (min) 30
[2023-01-14] MEDS: lanolin oint 7 gm 1 APPLIC TOPICAL (23:02)
[2023-01-15] MEDS: HYDROcodone-acetaminophen 5-325 mg Tablet PO ×2 (02:54→07:29)
[2023-01-15 04:03] VITALS: BP 104/58; PULSE 75; TEMP 36.2
[2023-01-15 04:13] VITALS: RESP 15
[2023-01-15] MEDS: ferrous sulfate EC 325 mg Tablet PO (07:29)
[2023-01-15] MEDS: prenatal vitamin Capsule 1 CAP PO (07:29)
[2023-01-15] MEDS: ibuprofen 800 mg tablet PO (10:01)
[2023-01-15] MEDS: docusate sodium 100 mg Capsule PO (10:01)
[2023-01-15] MEDS: valACYclovir 1,000 mg Tablet 500 MG PO (10:02)
[2023-01-15 10:05] VITALS: BP 114/68; PULSE 77; TEMP 36.2
--- NOTE | 2023-01-15 12:25 | P.PN_ITS ---
INTERACTIVE MEDIA MARKETING DIRECTOR Subjective Subjective: Interval history: States incisional pain better No c/o eating, voiding, ambulating well no bleeding wants to go home without any difficulties Labor: Station: -2 Amniotic Membrane Status: Ruptured Monitor Mode: External Contraction Pattern: Irregular Vitals/I&O/Wt Last Vital Signs Temp 97.2 F L 01/15/23 10:05 Pulse 84 01/15/23 13:15 Resp 15 01/15/23 13:15 BP 147/79 01/15/23 13:15 Pulse Ox 100 01/15/23 13:15 O2 Del Method Room Air 01/13/23 12:08 Physical Exam Narrative: comfortable afebrile, VS normal Abd: soft, nontender wound clean and dry Ext: normal Urinary Catheter Management: Miller: Cath Placed During This Visit: yes, but has since been removed by the nurse Reason for Continuing Indwelling Catheter: Decision to DC Catheter Urinary Catheter Date of Insertion: 01/13/23 Urinary Catheter Time of Insertion: 07:57 Date Urinary Catheter Removed: 01/13/23 Time Urinary Catheter Discontinued: 22:05 Data 01/13/23 20:55 A&P Assessment and plan (1) Status post : POD #2 primary LTCS doing well discharge home today instructions and precautions given call/return if fever, chills, nausea, vomiting, headaches, abdominal pain, bleeding, inability to void, swelling, leg pain; feelings of depression or mood changes; wound redness, swelling, or discharge f/u in 1 week or PRN Attestations Medical Necessity Statement*: patient s/p primary LTCS, discharge home today Coding Level of Care Code Acute Code for Chg Fwd Diagnoses Status post Z98.891 Time Spent (min) 30
[2023-01-15 13:15] VITALS: BP 147/79; PULSE 84; RESP 15; O2SAT 100
--- NOTE | 2023-01-15 22:34 | P.DS_ITS ---
Discharge Providers SILICA MIXER OPERATOR Date of Admission: 01/13/23 06:31 Date of Discharge: 01/15/23 Attending Provider at Admission: Sonny Warner MD Attending Provider at Discharge: Sonny Warner MD Primary Care Provider: Sonny Warner MD Diagnoses at Discharge Discharge Diagnosis (1) Status post : Details from hospital stay: patient at term presented in labor with spontaneous rupture of membranes fetus in breech presentation Status: Acute Reason for Visit Reason for Visit: Possible ROM, Contractions Hospital Course Hospital Course patient underwent primary low-transverse normal postop course Information Peripartum Data: Delivery Method: Physical Exam Const: COMMON NORMALS: no acute distress, average body habitus, patient oriented x3 and alert Resp: COMMON NORMALS: normal respiratory effort, No retractions, No use of accessory muscles and clear to auscultation bilaterally AUSCULTATION: clear to auscultation bilaterally Cardio: COMMON NORMALS: regular rate and regular rhythm RATE: regular rate RHYTHM: regular rhythm GI: COMMON NORMALS: Normal to inspection, nondistended, normoactive bowel sounds present, Soft to palpation and non-tender PALPATION: Yes Soft to palpation OTHER: wound clean and dry Neuro: COMMON NORMALS: patient oriented x3 SENSORIUM/ORIENTATION: Yes alert Urinary Catheter Management: Miller: Cath Placed During This Visit: yes, but has since been removed by the nurse Reason for Continuing Indwelling Catheter: Decision to DC Catheter Urinary Catheter Date of Insertion: 01/13/23 Urinary Catheter Time of Insertion: 07:57 Date Urinary Catheter Removed: 01/13/23 Time Urinary Catheter Discontinued: 22:05 History History History 2 Term 1 0 Miscarriages/Ectopic 0 Living Children 1 Discharge Data Studies Completed and Pending Laboratory Results WBC 14.7 10^3/uL (4.0-10.0) H 01/13/23 20:55 RBC 4.09 10^6/uL (4.1-5.3) L 01/13/23 20:55 Hgb 12.2 g/dL (11.5-15.3) 01/13/23 20:55 Hct 37.4 % (37.0-47.0) 01/13/23 20:55 MCV 91.4 fl (81-99) 01/13/23 20:55 MCH 29.8 pg (28.0-34.0) 01/13/23 20:55 MCHC 32.6 g/dL (30.0-36.0) 01/13/23 20:55 RDW 14.0 % (12.1-15.1) 01/13/23 20:55 Plt Count 121 10^3/cmm (130-400) L 01/13/23 20:55 MPV 12.3 fL (7.4-10.4) H 01/13/23 20:55 Neut % (Auto) 62.6 % 01/13/23 07:00 Lymph % (Auto) 24.6 % 01/13/23 07:00 [place] % (Auto) 8.9 % 01/13/23 07:00 Eos % (Auto) 1.6 % 01/13/23 07:00 Baso % (Auto) 0.4 % 01/13/23 07:00 Neut # (Auto) 7.98 10^3/uL (1.8-7.7) H 01/13/23 07:00 Lymph # (Auto) 3.1 10^3/uL (0.8-4.8) 01/13/23 07:00 [place] # (Auto) 1.1 10^3/uL (0.2-0.9) H 01/13/23 07:00 Eos # (Auto) 0.2 10^3/uL (0.0-0.8) 01/13/23 07:00 Baso # (Auto) 0.1 10^3/uL (0.0-0.1) 01/13/23 07:00 Nucleated RBC % (auto) 0 % 01/13/23 07:00 Nucleated RBCs # 0.0 /100WBC 01/13/23 07:00 Blood Type O Negative 01/13/23 07:00 Rho(D) Type Negative 01/13/23 07:00 Antibody Screen Negative 01/13/23 07:00 Screen Negative (Negative) 01/13/23 20:55 Vitals Last Vital Signs Temp 97.2 F L 01/15/23 10:05 Pulse 84 01/15/23 13:15 Resp 15 01/15/23 13:15 BP 147/79 01/15/23 13:15 Pulse Ox 100 01/15/23 13:15 O2 Del Method Room Air 07/30/23 12:08 Discharge Plan Discharge Patient Disposition: Home Condition: Stable Prescriptions: New Percocet 7.5-325 mg tablet 1 tab PO Q8H Qty: 20 0RF Continued prenat.vits,naila,[id number]-qvoyr Tablet 1 tab PO DAILY valacyclovir [Valtrex] 500 mg tablet 500 mg PO BID Qty: 60 11RF hydroxyzine HCl 25 mg tablet 25 mg PO .hs PRN (Reason: itching) Qty: 30 0RF Rx Instructions: take 1/2 tab; if no improvement in 1-2 hours, take additional 1/2 tab Discharge Orders: Discharge Order (Routine); Ordered 01/15/23 Ordered By: Sonny Warner Referrals: Sonny Warner MD [Primary Care Provider] - 01/22/23 10:00 am (Patient to see Dr. Warner for 1 week incision check on 01-22-23 at 10 AM Patient to see Dr. Warner for 6 week check up on 02-25-23 at 1:45 PM) Discharge Diet: Usual diet Discharge Activity: Increase activity as tolerated Patient Instructions: Depression (DC), Opioid Safety (DC), Preeclampsia and Eclampsia After Delivery (GEN), Hemorrhage (DC), OB Discharge Report, OB Food/Drug Interaction Guide, Opioid Safety, OB Home Care, OB Vaginal Deliveries - [facility], Abnormal Bleeding Discharge Attestations SILICA MIXER OPERATOR Time Spent in Discharge Care*: less than 30 min Coding Level of Care Code Acute Code for Chg Fwd Diagnoses Status post Z98.891 Time Spent (min) 20
== END 2023-01-15 13:32 | disposition home or self-care (01) | DRG 788 ==
LOC: OBGYN 08:13
PROVIDERS: Admitting Provider Obstetrics & Gynecology; PCP Obstetrics & Gynecology; Visit Provider Obstetrics & Gynecology
PROC: (CPT 59514; principal; 2023-01-13 07:50)
DX: O32.1XX0 Maternal care for breech presentation, not applicable or unspecified (principal); Z37.0 Single live birth; Z3A.39 39 weeks gestation of pregnancy
CPT/HCPCS: 36415; 51702; 59025; 59409; 85025; 85027; 85460; 86850; 86900; 90384; 96374; 96376; J0690; J1885; J2274; J2405; J2765; J3010; J3490; J7030; J7120; J7121

== ENCOUNTER 2023-02-11 10:43 | Outpatient (CLI) | payer MEDICAID, SELFPAY ==
--- NOTE | 2023-02-11 11:00 | USCV_ITS ---
Batsheva Durand Age: 32 Gender: F : 1990 Exam Date: 02/11/2023 11:00 Ordering Phys: Sonny Warner MD Technologist: STAN Exam Location: [facility] [place] Indication: Rt Leg pain x3 days HISTORY: Lower extremity pain. PROCEDURES: Venous duplex imaging was performed in only the right lower extremity. The following venous structures were evaluated: common femoral vein, profunda vein, proximal portion of the greater saphenous vein, superficial femoral vein, and the popliteal vein. In addition, the posterior tibial and peroneal trunk were evaluated. Serial compression, augmentation maneuvers, and spectral Doppler flow evaluation were performed. FINDINGS: Normal 2-D Doppler and augmentation and compressibility throughout the lower extremity venous structures. Additional imaging through the proximal calf veins also reveals no thrombus. Limited evaluation of the greater saphenous vein is patent with no thrombus. CONCLUSIONS No DVT right lower extremity. Dr. Kimberly Sherman DO (Electronically Signed) Final Date: 11 February 2023 11:27 S
== END 2023-02-11 10:44 | disposition home or self-care (01) ==
LOC: RAD 10:46
PROVIDERS: PCP Obstetrics & Gynecology; Visit Provider Obstetrics & Gynecology
DX: M79.604 Pain in right leg (principal)
CPT/HCPCS: 93971

== ENCOUNTER → 2023-03-09 15:40 | Outpatient (BNVA) | payer MEDICAID, SELFPAY | PROVIDERS: PCP Obstetrics & Gynecology | DX: R05.9 Cough, unspecified (principal); J20.8 Acute bronchitis due to other specified organisms; Z20.822 Contact with and (suspected) exposure to COVID-19 | CPT/HCPCS: 87426 ==

== ENCOUNTER → 2023-03-26 13:21 | Outpatient (BNVA) | payer MEDICAID, SELFPAY | PROVIDERS: PCP Obstetrics & Gynecology; Visit Provider Nurse Practitioner | DX: S69.91XA Unspecified injury of right wrist, hand and finger(s), initial encounter (principal); X58.XXXA Exposure to other specified factors, initial encounter | CPT/HCPCS: 73110; 73130 ==

== ENCOUNTER → 2023-04-02 09:39 | Outpatient (BNVA) | payer MEDICAID, SELFPAY | PROVIDERS: PCP Obstetrics & Gynecology; Referring Provider Nurse Practitioner; Visit Provider Orthopaedic Surgery | DX: S62.111A Displaced fracture of triquetrum [cuneiform] bone, right wrist, initial encounter for closed fracture (principal); X58.XXXA Exposure to other specified factors, initial encounter | CPT/HCPCS: 73100 ==

== ENCOUNTER 2023-04-02 14:42 | Outpatient (CLI) | payer MEDICAID, SELFPAY | END 2023-04-02 14:43 | disposition home or self-care (01) | LOC: SPT 14:42 | PROVIDERS: PCP Obstetrics & Gynecology; Visit Provider Orthopaedic Surgery | DX: Z46.89 Encounter for fitting and adjustment of other specified devices (principal); S62.344D Nondisplaced fracture of base of fourth metacarpal bone, right hand, subsequent encounter for fracture with routine healing; X58.XXXD Exposure to other specified factors, subsequent encounter | CPT/HCPCS: 97760; L3807 ==

== ENCOUNTER → 2023-04-23 08:25 | Outpatient (BNVA) | payer MEDICAID, SELFPAY | PROVIDERS: PCP Obstetrics & Gynecology; Visit Provider Orthopaedic Surgery | DX: S62.101A Fracture of unspecified carpal bone, right wrist, initial encounter for closed fracture (principal); X58.XXXA Exposure to other specified factors, initial encounter | CPT/HCPCS: 73110 ==

== ENCOUNTER → 2023-04-25 08:39 | Outpatient (BNVA) | payer MEDICAID, SELFPAY | PROVIDERS: PCP Obstetrics & Gynecology; Visit Provider Nurse Practitioner Family | DX: R39.9 Unspecified symptoms and signs involving the genitourinary system (principal); R10.30 Lower abdominal pain, unspecified | CPT/HCPCS: 81000 ==

== ENCOUNTER → 2023-05-21 14:11 | Outpatient (BNVA) | payer MEDICAID, SELFPAY | PROVIDERS: PCP Obstetrics & Gynecology; Visit Provider Orthopaedic Surgery | DX: S62.309D Unspecified fracture of unspecified metacarpal bone, subsequent encounter for fracture with routine healing (principal); X58.XXXD Exposure to other specified factors, subsequent encounter | CPT/HCPCS: 73110 ==

== ENCOUNTER → 2023-05-23 13:14 | Outpatient (BNVA) | payer MEDICAID, SELFPAY | PROVIDERS: PCP Obstetrics & Gynecology; Visit Provider Nurse Practitioner Family | DX: R11.2 Nausea with vomiting, unspecified (principal); R19.7 Diarrhea, unspecified; J06.9 Acute upper respiratory infection, unspecified | CPT/HCPCS: 87400; 87426 ==

== ENCOUNTER → 2023-05-25 12:10 | Outpatient (BNVA) | payer MEDICAID, SELFPAY | PROVIDERS: PCP Obstetrics & Gynecology; Visit Provider Registered Nurse Neonatal Intensive Care | DX: R51.9 Headache, unspecified (principal); R11.2 Nausea with vomiting, unspecified; R19.7 Diarrhea, unspecified; J06.9 Acute upper respiratory infection, unspecified | CPT/HCPCS: 87400; 87426 ==

== ENCOUNTER → 2023-08-05 09:13 | Outpatient (BNVA) | payer MEDICAID, SELFPAY | PROVIDERS: PCP Obstetrics & Gynecology; Visit Provider Nurse Practitioner Family | DX: J02.9 Acute pharyngitis, unspecified (principal); R05.9 Cough, unspecified | CPT/HCPCS: 87400; 87420; 87880 ==

== ENCOUNTER → 2023-08-21 08:23 | Outpatient (BNVA) | payer MEDICAID, SELFPAY | PROVIDERS: PCP Obstetrics & Gynecology; Visit Provider Nurse Practitioner Women's Health | DX: N92.6 Irregular menstruation, unspecified (principal) | CPT/HCPCS: 81025 ==

== ENCOUNTER → 2023-08-26 15:26 | Outpatient (BNVA) | payer MEDICAID, SELFPAY | PROVIDERS: PCP Obstetrics & Gynecology; Visit Provider Nurse Practitioner Women's Health | DX: Z36.87 Encounter for antenatal screening for uncertain dates (principal) | CPT/HCPCS: 76801; 87400; 87426 ==

== ENCOUNTER 2023-08-29 18:31 | Emergency (ER) | payer MEDICAID, SELFPAY ==
[2023-08-29 18:37] VITALS: BP 118/76; PULSE 70; RESP 16; TEMP 36.5; O2SAT 100; BMI 23.2
[2023-08-29 19:00] LABS: Basophils % 0.3 %; Eosinophils # 0.1 10^3/uL (0.0-0.8); Eosinophils % 0.6 %; Hematocrit 43.3 % (36-47); Lymphocytes # 3.1 10^3/uL (0.8-4.8); Lymphocytes % 39.7 %; Mean Corpuscular HGB Conc 33.3 g/dL (30-55); Mean Corpuscular Hemoglobin 30.3 pg (27-33); Mean Corpuscular Volume 91.2 fl (85-98); Mean Platelet Volume 10.7 fL (7.4-10.4); Monocytes # 0.6 10^3/uL (0.2-0.9); Monocytes % 7.6 %; Neutrophils % 51.5 %; Nucleated Red Blood Cells % 0 %; Platelet Count 203 10^3/cmm (157-399); Red Blood Count 4.75 10^6/uL (3.85-5.65); Red Cell Distribution Width 12.3 % (12.1-15.1); White Blood Count 7.76 10^3/uL (3.29-11.43)
[2023-08-29 20:30] VITALS: BP 115/76; PULSE 61; RESP 18; O2SAT 91
--- NOTE | 2023-08-29 20:38 | ED_ITS ---
HPI - 2 General: Chief complaint: Vaginal Bleeding Stated complaint: Vaginal bleeding, Time Seen by Provider: 08/29/23 19:56 Source: patient Mode of arrival: ambulatory Limitations: no limitations History of Present Illness: 32-year-old female states she is current ly 8 weeks . States she started having some abdominal cramps yesterday and states she has had symptoms spotting today. States she did notice just a small amount of blood when she wiped she denies any clots denies any severe pain. Associated symptoms: Reports abdominal pain; Deny dysuria, headache(s), nausea or vomiting Review of Systems 2 Const: Denies: fever(s), chills, body aches or change in appetite ENMT: Denies: throat pain or dental pain Card: Denies: chest pain Resp: Denies: dyspnea GI: Reports: abdominal pain; Denies: nausea, vomiting or diarrhea : Reports: vaginal bleeding; Denies: dysuria Musc: Denies: neck pain or back pain Skin/Breast: Denies: rash Neuro: Denies: headache(s) PFSH ED 2 PFSH: Medical History Genital HSV Cannabis use disorder, moderate, in sustained remission Alcohol use disorder, moderate, in sustained remission Anxiety and depression Diagnosed as a teenager and has used medications on and off in the past. Was on Celexa and BuSpar during her in 2019. Follows with PMD. Does not have a therapist. No pertinent past medical history Denies diabetes, asthma, hypertension, seizures, DVT/PE. PCP: Dr. Ledesma Surgical History S/P laparoscopy In 2010 for bilateral ovarian cysts---this surgery was performed by Dr. Vanegas Family History Father Diabetes Hypertension Heart disease of same Hyperlipidemia Mother Hypertension Hyperlipidemia Denies family history of Colon cancer Ovarian cancer Breast cancer Uterine cancer Thyroid disease Stroke Physical Exam 2 Const: COMMON NORMALS: no acute distress, patient oriented x3 and healthy appearing HENMT: COMMON NORMALS: normocephalic and atraumatic HEAD & SCALP: n ormocephalic and atraumatic Eye: COMMON NORMALS: conjunctivae normal CONJUNCTIVA: Yes conjunctivae normal Neck/C-Spine: COMMON NORMALS: full ROM and supple Chest: COMMONS NORMALS: normal inspection of the chest Resp: COMMON NORMALS: normal respiratory effort Cardio: COMMON NORMALS: regular rate, regular rhythm and No murmurs present (Cardio) RATE: regular rate RHYTHM: regular rhythm GI: COMMON NORMALS: Normal to inspection, nondistended, normoactive bowel sounds present, Soft to palpation, non-tender and no masses PALPATION: Yes Soft to palpation Extremity: COMMON NORMALS: normal to inspection and full ROM Neuro: COMMON NORMALS: patient oriented x3, moves all extremities and no focal motor deficits Psych: COMMON NORMALS: mental status grossly normal, Normal thought process present and cooperative THOUGHT PROCESS: Normal thought process present Skin: COMMON NORMALS: no rashes or lesions noted and no wounds GENERAL SKIN EXAM: no rashes or lesions noted Course 2 Vital Signs: Vital signs: Vital Signs Temperature 97.7 F 08/29/23 18:37 Pulse Rate 61 08/29/23 20:30 Respiratory Rate 18 08/29/23 20:30 Blood Pressure 115/76 08/29/23 20:30 Pulse Oximetry 91 08/29/23 20:30 MDM - OB/Uterine Contractions Medical Decision Making Patient presents here with a threatened miscarriage bedside ultrasound here does show an IUP consistent with dates heart rate 146. She has no pain on exam she is Rh- we will give her RhoGAM she stable for discharge she is to follow-up with her OB Dr. Warner and return to the ER if worsening she understands agrees to plan Medical Records I reviewed the patient's medical records. Lab Data I reviewed the patient's lab results. 08/29/23 18:48 Laboratory Results WBC 7.76 10^3/uL (3.29-11.43) 08/29/23 18:48 RBC 4.75 10^6/uL (3.85-5.65) 08/29/23 18:48 Hgb 14.40 g/dL (11.27-16.99) 08/29/23 18:48 Hct 43.3 % (36-47) 08/29/23 18:48 MCV 91.2 fl (85-98) 08/29/23 18:48 MCH 30.3 pg (27-33) 08/29/23 18:48 MCHC 33.3 g/dL (30-55) 08/29/23 18:48 RDW 12.3 % (12.1-15.1) 08/29/23 18:48 Plt Count 203 10^3/cmm (157-399) 08/29/23 18:48 MPV 10.7 fL (7.4-10.4) H 08/29/23 18:48 Neut % (Auto) 51.5 % 08/29/23 18:48 Lymph % (Auto) 39.7 % 08/29/23 18:48 [place] % (Auto) 7.6 % 08/29/23 18:48 Eos % (Auto) 0.6 % 08/29/23 18:48 Baso % (Auto) 0.3 % 08/29/23 18:48 Neut # (Auto) 4.00 10^3/uL (1.8-7.7) 08/29/23 18:48 Lymph # (Auto) 3.1 10^3/uL (0.8-4.8) 08/29/23 18:48 [place] # (Auto) 0.6 10^3/uL (0.2-0.9) 08/29/23 18:48 Eos # (Auto) 0.1 10^3/uL (0.0-0.8) 08/29/23 18:48 Baso # (Auto) 0.0 10^3/uL (0.0-0.1) 08/29/23 18:48 Nucleated RBC % (auto) 0 % 08/29/23 18:48 Nucleated RBCs # 0.0 /100WBC 08/29/23 18:48 Ser , Semi-Qnt 236060.00 mIU/mL 08/29/23 18:48 No radiology studies performed this visit Discharge Plan Discharge Patient Disposition: Home Clinical Impression: Threatened miscarriage Condition: Stable Prescriptions: No Action citalopram 20 mg tablet 20 mg PO DAILY hydroxyzine HCl 25 mg tablet 25 mg PO .bid prn PRN (Reason: itching) Qty: 40 1RF Rx Instructions: take 1/2 tab; if no improvement in 1-2 hours, take additional 1/2 tab oseltamivir [Tamiflu] 75 mg capsule 75 mg PO BID 5 Days Qty: 10 0RF valacyclovir 500 mg tablet See Rx Instructions .ROUTE .COMPLEX Qty: 60 0RF Dose Instruction: TAKE 1 TABLET BY MOUTH TWICE DAILY Rx Instructions: TAKE 1 TABLET BY MOUTH TWICE DAILY Discharge Orders: Discharge ED (Routine); Ordered 08/29/23 Ordered By: Blas Aldrich Referrals: Sonny Warner MD [Primary Care Provider] - 1-3 days Discharge Diet: Advance as tolerated Discharge Activity: Resume usual activity Patient Instructions: Threatened Miscarriage (ED) Coding Level of Care Code ED Records Management Director for Amla Epperson
[2023-08-29] MEDS: acetaminophen 325 mg Tablet 650 MG PO (21:22)
[2023-08-29 22:02] VITALS: BP 113/73; PULSE 57; RESP 16; TEMP 36.8; O2SAT 100
== END 2023-08-29 22:12 | disposition home or self-care (01) ==
PROVIDERS: Emergency Provider Emergency Medicine; PCP Obstetrics & Gynecology
DX: O20.0 Threatened abortion (principal); Z3A.08 8 weeks gestation of pregnancy; Z29.13 Encounter for prophylactic Rho(D) immune globulin
CPT/HCPCS: 36415; 36430; 84702; 85025; 86850; 86900; 90384; 99283

== ENCOUNTER → 2023-09-10 07:50 | Outpatient (BNVA) | payer MEDICAID, SELFPAY | PROVIDERS: PCP Obstetrics & Gynecology; Visit Provider Nurse Practitioner Women's Health | DX: Z34.90 Encounter for supervision of normal pregnancy, unspecified, unspecified trimester (principal); F41.9 Anxiety disorder, unspecified; F32.9 Major depressive disorder, single episode, unspecified | CPT/HCPCS: 80307; 80503; 84315; 84443; 85025; 86592; 86762; 86803; 86850; 86870; 86900; 87086; 87340; 87491; 87591; 87806 ==

== ENCOUNTER → 2023-09-13 09:45 | Outpatient (BNVA) | payer MEDICAID, SELFPAY | PROVIDERS: PCP Obstetrics & Gynecology; Visit Provider Nurse Practitioner Women's Health | DX: O36.0190 Maternal care for anti-D [Rh] antibodies, unspecified trimester, not applicable or unspecified (principal); N89.8 Other specified noninflammatory disorders of vagina; Z3A.00 Weeks of gestation of pregnancy not specified | CPT/HCPCS: 84702; 86880 ==

== ENCOUNTER → 2023-10-12 17:30 | Outpatient (BNVA) | payer MEDICAID, SELFPAY | PROVIDERS: Visit Provider Emergency Medicine | DX: N89.8 Other specified noninflammatory disorders of vagina | CPT/HCPCS: 81000; 87086; 87491; 87591 ==

== ENCOUNTER 2023-10-14 18:49 | Emergency (ER) | payer MEDICAID, SELFPAY ==
[2023-10-14 19:09] VITALS: BP 107/66; PULSE 67; TEMP 36.8; O2SAT 100; BMI 23.0
[2023-10-14 19:12] VITALS: BP 116/64; PULSE 67; O2SAT 100
--- NOTE | 2023-10-14 19:40 | USR_ITS ---
PROCEDURE INFORMATION: Exam: US , Limited Exam date and time: 10/14/2023 7:57 PM Age: 32 years old Clinical indication: Pain and injury or trauma; Blunt trauma; complicated by abdominal or pelvic pain; Other: Lower back, coccygeal; Gestational age or lmp: 14w 4d by lmp; Injury date: 10/14/2023; Injury details: Ground-level fall, tripped over her 4-year old as she was moving a car seat container her 9month old, fell backwards striking sacral area. ; Patient HX: [id number]-a0-l2, ; additional info: Evaluate iup LABS AND CLINICAL REPORTS: Last menstrual period start date: 07/03/2023 Gestational age (Established): 14 w 4 d Estimated due date (Established): 04/09/2024 TECHNIQUE: Imaging protocol: Real-time ultrasound of the maternal uterus with image documentation. Exam focused on the clinical indication. COMPARISON: US OB <= 14 weeks fetus [id number] 08/26/2023 3:33 PM FINDINGS: Single viable IUP in variable presentation. heart rate is 148 bpm. Placenta is located anteriorly within the fundus. Amniotic fluid volume is normal. Gestational age is 15 weeks 4 days with an CONNOR of 04/02/2024. anatomy: brain unremarkable. face unremarkable. heart not examined. RVOT and LVOT unremarkable. Umbilical cord and insertion unremarkable. Umbilical cord vessel number unremarkable. kidneys not examined. urinary bladder unremarkable. stomach unremarkable. spine unremarkable. extremities unremarkable. The following measurements were obtained: BPD 3.2 cm 15 weeks 6 days 93 percentile HC 12.1 cm 16 weeks 95 percentile AC 9.2 cm 15 weeks 3 days 81 percentile FL 1.6 cm 14 weeks 6 days 57 percentile EFW 118 grams 82 percentile Cephalic index (CI): 75. (Normal range: 70 - 86) HC/AC: 1.31. (Normal range: 1.06 - 1.36) FL/HC: 13.59. (Normal range: 14.16 - 16.76) FL/BPD: 52.06 FL/AC: 17.75 US/US OB >= 14 weeks fetus [id number] Impression: Unremarkable single viable intrauterine gestation
--- NOTE | 2023-10-14 19:44 | ED_ITS ---
Documented by User: YUVAL Acevedo 10/14/23 21:15 HPI - Fall General: Chief Complaint: Fall Stated Complaint: Fall, 14 weeks preg Time Seen by Provider: 10/14/23 19:12 Source: patient Mode of arrival: ambulatory Limitations: no limitations History of Present Illness: Patient is a 32-year-old female presenting to the emergency department complaining of low back pain status post fall prior to arrival. Patient is currently 14 weeks and states she would like the health of her baby evaluated. She notes that she did land directly onto her low back/coccygeal region, and while she is having pain here she notes that she has chronic pain in this area. She has been using Tylenol to control her pain, states this is minimal relief. She states she was instructed to come here by her doctor to evaluate the fetus, as she has a history of and is currently attempting . No loss of bowel or bladder function, vaginal bleeding, abdominal pain, or other symptoms at this time. She did not hit her head with the fall. MD complaint: fall Onset (ago): minute(s) Fall from: standing Place fall occurred: home Loss of consciousness: None Prolonged down time: no Symptoms prior to fall: none Context: tripped/slipped Location of injury: back Associated symptoms-after fall: Denies abdominal pain, chest pain, headache(s), lightheadedness or neck pain Review of Systems General: Reports: 10 or more systems reviewed and unremarkable except in HPI and below Const: Denies: fever(s), chills or fatigue Eyes: Denies: change in vision ENMT: Denies: throat pain, ear or mastoid pain or nasal discharge Card: Denies: chest pain, palpitations, swelling of feet/ankles or li ghtheadedness Resp: Denies: dyspnea, productive cough or wheezing GI: Denies: abdominal pain, nausea, vomiting, diarrhea or constipation : Reports: other (); Denies: flank pain, difficulty voiding, dysuria or urinary frequency Musc: Reports: back pain; Denies: neck pain or joint pain Skin/Breast: Denies: rash Neuro: Denies: headache(s), numbness in extremities or weakness in extremities PFS ED PFSH: Medical History Genital HSV Cannabis use disorder, moderate, in sustained remission Alcohol use disorder, moderate, in sustained remission Anxiety and depression Diagnosed as a teenager and has used medications on and off in the past. Was on Celexa and BuSpar during her in 2019. Follows with PMD. Does not have a therapist. No pertinent past medical history Denies diabetes, asthma, hypertension, seizures, DVT/PE. PCP: Dr. Ledesma Surgical History S/P laparoscopy In 2010 for bilateral ovarian cysts---this surgery was performed by Dr. Vanegas Family History Father Diabetes Hypertension Heart disease of same Hyperlipidemia Mother Hypertension Hyperlipidemia Denies family history of Colon cancer Ovarian cancer Breast cancer Uterine cancer Thyroid disease Stroke Social History Smoking and tobacco/nicotine status: never used tobacco/nicotine Physical Exam Const: COMMON NORMALS: no acute distress, patient oriented x3 and no limitations GENERAL APPEARANCE: cooperative, comfortable and well developed ORIENTATION/CONSCIOUSNESS: Yes awake, Yes oriented to person, Yes oriented to place and Yes oriented to time HENMT: COMMON NORMALS: normocephalic, atraumatic and hearing grossly normal bilaterally HEAD & SCALP: normocephalic and atraumatic Eye: COMMON NORMALS: Equal, round and reactive pupils present, EOMs intact bilaterally and conjunctivae normal CONJUNCTIVA: Yes conjunctivae normal PUPIL: Yes Equal, round and reactive pupils present Neck/C-Spine: COMMON NORMALS: full ROM, supple and no JVD Resp: COMMON NORMALS: normal respiratory effort, No retractions, No use of accessory muscles and clear to auscultation bilaterally AUSCULTATION: clear to auscultation bilaterally Cardio: COMMON NORMALS: no JVD, regular rate, regular rhythm, No clicks present (Cardio), No murmurs present (Cardio) and No rub (Cardio) RATE: regular rate RHYTHM: regular rhythm GI: COMMON NORMALS: Normal to inspection, nondistended, normoactive bowel sounds present, Soft to palpation and non-tender AUSCULTATION: Yes normoactive bowel sounds PALPATION: Yes Soft to palpation RECTAL EXAM: deferred : COMMON NORMALS: Yes no CVA tenderness BLADDER/KIDNEY EXAM: Yes no CVA tenderness Back/Pelvis: COMMON NORMALS: no CVA tenderness and thoracic and lumbar spine normal to inspection THORACIC SPINE/UPPER BACK: Yes normal to inspection, Yes thoracic ROM normal and No thoracic spinal tenderness LUMBAR SPINE/LOWER BACK: Yes ROM limited, Yes pain with ROM, Yes lumbar spinal tenderness and No paraspinal muscle tenderness Extremity: COMMON NORMALS: normal to inspection, full ROM and capillary refill normal Neuro: COMMON NORMALS: patient oriented x3, CN's II-XII intact bilaterally, moves all extremities, no focal motor deficits and no sensory deficits noted SENSORIUM/ORIENTATION: Yes oriented to person, Yes oriented to place and Yes oriented to time Psych: COMMON NORMALS: mental status grossly normal and Normal thought process present THOUGHT PROCESS: Normal thought process present Skin: COMMON NORMALS: no rashes or lesions noted GENERAL SKIN EXAM: no rashes or lesions noted Course Vital Signs: Vital signs: Vital Signs Temperature 98.2 F 10/14/23 19:09 Pulse Rate 60 10/14/23 21:18 Respiratory Rate 16 10/14/23 21:10 Blood Pressure 104/60 10/14/23 21:10 Pulse Oximetry 100 10/14/23 21:18 Oxygen Delivery Me thod Room Air 10/14/23 21:10 MDM - Fall Medical Decision Making Patient was seen status post fall, concerned about the integrity of her IUP. On arrival her vitals were normal, condition has remained stable. Exam showed some reproducible tenderness to palpation about the lumbar spinous process. Due to patient's status of 14 weeks , x-ray not an option at this point, and patient notes she has a history of low back pain and this does not feel too much changed from normal. She does however want an ultrasound to confirm that her is uncomplicated. Ultrasound revealed a single viable intrauterine gestation. Informed patient of these findings, and she will continue to take Tylenol as needed for her back pain. She will follow-up with OB later this week and continue care as usual. Reasons to return are discussed. Lab Data Radiology Impressions Ultrasound 10/14/23 19:40 Impression: Unremarkable single viable intrauterine gestation All radiology interpretation(s) finalized by discharge Discharge Plan Discharge Patient Disposition: Home Clinical Impression: Intrauterine Contusion of lower back Qualifiers: Encounter type: initial encounter Qualified Code(s): S30.0XXA - Contusion of lower back and pelvis, initial encounter Condition: Stable Prescriptions: No Action hydroxyzine HCl 25 mg tablet 25 mg PO .bid prn PRN (Reason: itching) Qty: 40 1RF Rx Instructions: take 1/2 tab; if no improvement in 1-2 hours, take additional 1/2 tab Classic 28 mg iron- 800 mcg tablet PO Zyrtec 10 mg capsule 10 mg PO DAILY PRN citalopram 30 mg capsule 30 mg PO DAILY Qty: 30 3RF nitrofurantoin monohyd/m-cryst [Macrobid] 100 mg capsule 100 mg PO BID 7 Days Qty: 14 0RF Rx Instructions: must administer with a meal/food valacyclovir 500 mg tablet See Rx Instructions .ROUTE .COMPLEX Qty: 60 0RF Dose Instruction: TAKE 1 TABLET BY MOUTH TWICE DAILY Rx Instructions: TAKE 1 TABLET BY MOUTH TWICE DAILY Discharge Orders: Discharge ED (Routine); Ordered 10/14/23 Ordered By: Robbi Alegre Referrals: Anna Bustillos DO [Primary Care Provider] - Discharge Diet: Usual diet Discharge Activity: Increase activity as tolerated Patient Instructions: Contusion in Adults (ED) Activity Restrictions/Additional Instructions: Tylenol for pain as instructed. Follow-up with OB as discussed. Return if you have any new or concerning symptoms. Continue care as usual. Coding Level of Care Code ED Bowl Topper for Chg Fwd Documented by User: Ilan Carroll DO 10/17/23 06:17 HPI - Fall General: Chief Complaint: Fall Stated Complaint: Fall, 14 weeks preg Time Seen by Provider: 10/14/23 19:12 [facility] ED PFSH: Medical History Genital HSV Cannabis use disorder, moderate, in sustained remission Alcohol use disorder, moderate, in sustained remission Anxiety and depression Diagnosed as a teenager and has used medications on and off in the past. Was on Celexa and BuSpar during her in 2019. Follows with PMD. Does not have a therapist. No pertinent past medical history Denies diabetes, asthma, hypertension, seizures, DVT/PE. PCP: Dr. Ledesma Surgical History S/P laparoscopy In 2010 for bilateral ovarian cysts---this surgery was performed by Dr. Vanegas Family History Father Diabetes Hypertension Heart disease of same Hyperlipidemia Mother Hypertension Hyperlipidemia Denies family history of Colon cancer Ovarian cancer Breast cancer Uterine cancer Thyroid disease Stroke Social History Smoking and tobacco/nicotine status: never used tobacco/nicotine Course Vital Signs: Vital signs: Vital Signs Temperature 98.2 F 10/14/23 19:09 Pulse Rate 60 10/14/23 21:18 Respiratory Rate 16 10/14/23 21:10 Blood Pressure 104/60 10/14/23 21:10 Pulse Oximetry 100 10/14/23 21:18 Oxygen Delivery Me thod Room Air 10/14/23 21:10 MDM - Fall Medical Decision Making Patient was seen status post fall, concerned about the integrity of her IUP. On arrival her vitals were normal, condition has remained stable. Exam showed some reproducible tenderness to palpation about the lumbar spinous process. Due to patient's status of 14 weeks , x-ray not an option at this point, and patient notes she has a history of low back pain and this does not feel too much changed from normal. She does however want an ultrasound to confirm that her is uncomplicated. Ultrasound revealed a single viable intrauterine gestation. Informed patient of these findings, and she will continue to take Tylenol as needed for her back pain. She will follow-up with OB later this week and continue care as usual. Reasons to return are discussed. Chart reviewed Lab Data Radiology Impressions Ultrasound 10/14/23 19:40 Impression: Unremarkable single viable intrauterine gestation Discharge Plan Discharge Patient Disposition: Home Clinical Impression: Intrauterine Contusion of lower back Qualifiers: Encounter type: initial encounter Qualified Code(s): S30.0XXA - Contusion of lower back and pelvis, initial encounter Condition: Stable Prescriptions: No Action hydroxyzine HCl 25 mg tablet 25 mg PO .bid prn PRN (Reason: itching) Qty: 40 1RF Rx Instructions: take 1/2 tab; if no improvement in 1-2 hours, take additional 1/2 tab Classic 28 mg iron- 800 mcg tablet PO Zyrtec 10 mg capsule 10 mg PO DAILY PRN citalopram 30 mg capsule 30 mg PO DAILY Qty: 30 3RF nitrofurantoin monohyd/m-cryst [Macrobid] 100 mg capsule 100 mg PO BID 7 Days Qty: 14 0RF Rx Instructions: must administer with a meal/food valacyclovir 500 mg tablet See Rx Instructions .ROUTE .COMPLEX Qty: 60 0RF Dose Instruction: TAKE 1 TABLET BY MOUTH TWICE DAILY Rx Instructions: TAKE 1 TABLET BY MOUTH TWICE DAILY Discharge Orders: Discharge ED (Routine); Ordered 10/14/23 Ordered By: Robbi Alegre Referrals: Anna Bustillos DO [Primary Care Provider] - Discharge Diet: Usual diet Discharge Activity: Increase activity as tolerated Patient Instructions: Contusion in Adults (ED) Activity Restrictions/Additional Instructions: Tylenol for pain as instructed. Follow-up with OB as discussed. Return if you have any new or concerning symptoms. Continue care as usual. Coding Level of Care Code ED Bowl Topper for Alma Epperson
[2023-10-14 21:10] VITALS: BP 104/60; PULSE 66; RESP 16; O2SAT 100
[2023-10-14 21:18] VITALS: PULSE 60; O2SAT 100
== END 2023-10-14 21:19 | disposition home or self-care (01) ==
PROVIDERS: Emergency Provider Physician Assistant; PCP Family Medicine
DX: O9A.212 Injury, poisoning and certain other consequences of external causes complicating pregnancy, second trimester (principal); S30.0XXA Contusion of lower back and pelvis, initial encounter; Z3A.14 14 weeks gestation of pregnancy; W19.XXXA Unspecified fall, initial encounter
CPT/HCPCS: 76805; 99284

== ENCOUNTER → 2023-11-27 13:40 | Outpatient (BNVA) | payer MEDICAID, SELFPAY | PROVIDERS: PCP Family Medicine; Visit Provider Obstetrics & Gynecology | DX: Z34.82 Encounter for supervision of other normal pregnancy, second trimester (principal) | CPT/HCPCS: 76805 ==

== ENCOUNTER → 2024-01-22 07:54 | Outpatient (BNVA) | payer MEDICAID, SELFPAY | PROVIDERS: PCP Family Medicine; Visit Provider Obstetrics & Gynecology | DX: Z34.90 Encounter for supervision of normal pregnancy, unspecified, unspecified trimester (principal); O26.891 Other specified pregnancy related conditions, first trimester; Z67.91 Unspecified blood type, Rh negative | CPT/HCPCS: 82950; 84315; 86850 ==

== ENCOUNTER → 2024-03-02 08:15 | Outpatient (BNVA) | payer MEDICAID, SELFPAY | PROVIDERS: PCP Family Medicine; Visit Provider Obstetrics & Gynecology | DX: Z34.90 Encounter for supervision of normal pregnancy, unspecified, unspecified trimester (principal); Z36.4 Encounter for antenatal screening for fetal growth retardation; Z3A.35 35 weeks gestation of pregnancy | CPT/HCPCS: 76816; 84315 ==

== ENCOUNTER → 2024-03-16 15:39 | Outpatient (BNVA) | payer MEDICAID, SELFPAY | PROVIDERS: PCP Family Medicine; Visit Provider Obstetrics & Gynecology | DX: Z34.90 Encounter for supervision of normal pregnancy, unspecified, unspecified trimester (principal) | CPT/HCPCS: 84315; 87081 ==

== ENCOUNTER 2024-03-29 12:09 | Outpatient (CLI) | payer MEDICAID, SELFPAY ==
[2024-03-29] VITALS (9 sets, daily range): BP systolic 104–123; BP diastolic 67–81; PULSE 68–81; RESP 17; TEMP 36.6; BMI 28.4
--- NOTE | 2024-03-29 12:50 | USR_ITS ---
PROCEDURE INFORMATION: Exam: US Biophysical Profile Without Non-Stress Test Exam date and time: 03/29/2024 2:16 PM Age: 33 years old Clinical indication: Screening exam; Routine US screening of fetus; Third trimester (>=28 weeks 0 days); ; Additional info: Bpp TECHNIQUE: Imaging protocol: US biophysical profile without non-stress testing. COMPARISON: [place] [id number] 03/02/2024 8:21 AM FINDINGS: heart rate: 144 bpm BIOPHYSICAL PROFILE: breathing (BPP): 2 out of 2. gross body movement (BPP): 2 out of 2. tone (BPP): 2 out of 2. Amniotic fluid (BPP): 2 out of 2. MATERNAL ANATOMY: Cervix: Cervical length measures 3.1 cm. US/US OB BPP wo NST 40410 IMPRESSION: Normal biophysical profile
== END 2024-03-29 14:52 | disposition home or self-care (01) ==
LOC: OPOB 12:10 → OBGYN 12:10
PROVIDERS: PCP Family Medicine; Visit Provider Obstetrics & Gynecology
DX: O36.8190 Decreased fetal movements, unspecified trimester, not applicable or unspecified (principal); Z3A.00 Weeks of gestation of pregnancy not specified
CPT/HCPCS: 59025; 76819; 99211

== ENCOUNTER 2024-04-03 02:40 | Inpatient (IN) | payer MEDICAID, SELFPAY ==
[2024-04-03] VITALS (57 sets, daily range): BP systolic 98–149; BP diastolic 50–84; PULSE 57–104; RESP 16; TEMP 35.5–37.1; BMI 28.5
[2024-04-03 01:23] LABS: Nitrazine Paper, PH Positive
[2024-04-03 02:37] LABS: Basophils # 0.1 10^3/uL (0.0-0.1); Basophils % 0.4 %; Eosinophils # 0.2 10^3/uL (0.0-0.8); Eosinophils % 1.1 %; Hematocrit 39.4 % (36-47); Lymphocytes # 2.9 10^3/uL (0.8-4.8); Lymphocytes % 20.9 %; Mean Corpuscular HGB Conc 32.7 g/dL (30-55); Mean Corpuscular Hemoglobin 28.8 pg (27-33); Mean Corpuscular Volume 87.9 fl (85-98); Mean Platelet Volume 12.3 fL (7.4-10.4); Monocytes # 1.2 10^3/uL (0.2-0.9); Monocytes % 8.8 %; Neutrophils # 9.09 10^3/uL (1.8-7.7); Neutrophils % 66.7 %; Nucleated Red Blood Cells % 0 %; Platelet Count 171 10^3/cmm (157-399); Red Blood Count 4.48 10^6/uL (3.85-5.65); Red Cell Distribution Width 13.2 % (12.1-15.1); White Blood Count 13.62 10^3/uL (3.29-11.43)
--- NOTE | 2024-04-03 03:25 | PM.OBGYHP ---
Providers/Chief Complaint Admitting Physician: Sonny Warner MD Primary TESTING SHAKING SHIPPING: Sonny Warner MD Primary Care Provider: Anna Bustillos DO Chief Complaint: possible ROM HPI TESTING SHAKING SHIPPING History of Present Illness Batsheva Durand is a 33 year old female EDC April 10, 2024 At 39 w 0 d presents to L&D c/o fluid leakage no uterine contractions or bleeding + active movements taking acyclovir daily for h/o genital herpes h/o x one patient wants trial of labor no perineal pain or lesions POBHx: 1. 2. LTCS for breech at term, January 13, 2023 PMHx: h/o anxiety ? depression Past alcohol use Past cannabis use Genital HSV Present Details : 3 Para: 2 Labs Rubella: Immune RPR: Negative GBS: Negative Medications/Allergies Home Medications Medication Instructions Recorded Confirmed Last Taken Type hydroxyzine HCl 25 mg tablet 25 mg PO .bid prn PRN itching #40 01/28/23 03/23/24 Unknown Rx tabs cetirizine 10 mg capsule (Zyrtec) 10 mg PO DAILY PRN 09/10/23 03/23/24 Unknown History vits no.126-ferrous fum tab PO 09/10/23 03/23/24 Unknown History 28 mg iron-folic acid 800 mcg tablet (Classic ) famotidine 20 mg tablet 20 mg PO BID #60 tabs 01/22/24 03/23/24 Unknown Rx metoclopramide HCl 10 mg tablet 10 mg PO Q6H PRN heartburn #60 tabs 01/22/24 03/23/24 Unknown Rx (Reglan) valacyclovir 500 mg tablet See Rx Instructions .Route 02/11/24 03/23/24 Unknown Rx .COMPLEX #60 tabs Allergies Allergy/AdvReac Type Severity Reaction Status Date / Time No Known Allergies Allergy Verified 03/23/24 14:15 PFS TESTING SHAKING SHIPPING PFSH: Medical History Genital HSV Cannabis use disorder, moderate, in sustained remission Alcohol use disorder, moderate, in sustained remission Anxiety and depression Diagnosed as a teenager and has used medications on and off in the past. Was on Celexa and BuSpar during her in 2019. Follows with PMD. Does not have a therapist. No pertinent past medical history Denies diabetes, asthma, hypertension, seizures, DVT/PE. PCP: Dr. Ledesma Surgical History S/P laparoscopy In 2010 for bilateral ovarian cysts---this surgery was performed by Dr. Vanegas Family History Father Diabetes Hypertension Heart disease of same Hyperlipidemia Mother Hypertension Hyperlipidemia Denies family history of Colon cancer Ovarian cancer Breast cancer Uterine cancer Thyroid disease Stroke Social History Smoking and tobacco/nicotine status: never used tobacco/nicotine History History History 3 Term 2 0 Miscarriages/Ectopic 0 Living Children 2 Care CONNOR Calculator Estimated Delivery Date Method Current WG Current Estimate 04/10/24 LMP (Certain) 39w 0d Other Estimates 04/09/24 Ultrasound #1 39w 1d Vitals/I&O/Wt Last Vital Signs Temp 98.0 F 04/03/24 01:53 Pulse 78 04/03/24 05:46 BP 112/65 04/03/24 05:46 O2 Del Method Room Air 04/03/24 02:00 Weight last 48 hrs Weight 156 lb Weight 156 lb Physical Exam Narrative: Weight 158 lbs; 5?2? VS normal General comfortable, awake, alert Lungs: clear Cor: RRR Abd: nontender FH 37 cm Bedside sono cephalic cervix closed / long / -4 / posterior + gross pooling of clear amniotic fluid Ext: normal External monitor: heart tracing good variability, + accelerations Data 04/03/24 02:00 Results Labs OB ([facility]): Obstetrics US 03/02/24 Obstetrics US/Biophysical Profile 03/29/24 Blood Type O Negative 04/03/24 Antibody Screen Positive 04/03/24 Hct 39.4 % (36-47) 04/03/24 Hgb 12.90 g/dL (11.27-16.99) 04/03/24 Rho(D) Type Rh negative 04/03/24 Plt Count 171 10^3/cmm (157-399) 04/03/24 Hep Bs Antigen Non-reactive (Nonreactive) 09/10/23 Hepatitis C Antibody Non-reactive (Nonreactive) 09/10/23 Rubella IgG Antibody 39.6 IU/mL (0.0-10.0) H 09/10/23 RPR Nonreactive (Nonreactive) 09/10/23 HIV 1&2 Ab & HIV 1 Ag Non-reactive (Non-Reactiv) 09/10/23 TSH 0.41 uIU/mL (0.27-4.20) 09/10/23 C.trachomatis RNA (TMA) Not detected (NOT DETECTED) 10/12/23 N.gonorrhoeae RNA (TMA) Not detected (NOT DETECTED) 10/12/23 T. vaginalis Amp RNA Not detected (NOT DETECTED) 10/12/23 Chlamydia/GC Comment See note 10/12/23 Gest Glucose Tolerance 128 mg/dL (70-139) 01/22/24 Ser , Semi-Qnt 481494.00 mIU/mL 09/13/23 HCG, Qual Positive (Negative) H 08/21/23 Urine Opiates Screen Negative ng/mL (Negative) 09/10/23 Ur Barbiturates Screen Negative ng/mL (Negative) 09/10/23 Ur Phencyclidine Scrn Negative ng/mL (Negative) 09/10/23 Ur Amphetamines Screen Negative ng/mL (Negative) 09/10/23 U Benzodiazepines Scrn Negative ng/mL (Negative) 09/10/23 Urine Cocaine Screen Negative ng/mL (Negative) 09/10/23 U Marijuana (THC) Screen Negative ng/mL (Negative) 09/10/23 Micro Urine Specimen 10/12/23 Pap Smear Interpret See note 07/16/22 A&P Assessment and plan (1) : 39 w 0 d Ob sono done 03-02-24 showed good interval growth GBS negative now with spontaneous rupture of membranes not in active labor fetus reassuring Qualifiers: Weeks of gestation: 9 weeks Qualified Code(s): Z3A.09 - 9 weeks gestation of (2) H/O section: h/o with last patient still wants trial of labor Discussed risks of trial of labor after Risks include, but not limited to, uterine rupture, which can cause hypoxia, cerebral palsy, and . These risks can occur even if a can be done expeditiously as soon as a uterine rupture can be diagnosed. Also explained that the risk of uterine rupture is slightly increased in the setting of an unfavorable cervix, ie., prelabor spontaneous rupture of membranes, which may require labor induction and augmentation patient understands and still wants TOLAC (3) Genital HSV: has been on acyclovir daily for prophylaxis no active lesions Qualifiers: Herpes simplex infection site: unspecified Qualified Code(s): A60.00 - Herpesviral infection of urogenital system, unspecified (4) Rh negative status during : Qualifiers: Trimester: first trimester Qualified Code(s): O26.891 - Other specified related conditions, first trimester; Z. - Unspecified blood type, Rh negative Attestations Medical Necessity Statement*: patient at 39 weeks with spontaneous rupture of membranes Coding Level of Care Code Acute Code for Chg Fwd Diagnoses 9 weeks gestation of Z3A.09 Weeks of gestation: 9 weeks H/O section Z98.891 Genital herpes simplex, unspecified site A60.00 Herpes simplex infection site: unspecified Rh negative status during in first trimester O26.891; Z67.91 Trimester: first trimester Time Spent (min) 60
[2024-04-03] MEDS: dextrose 5%-lactated ringers 1,000 ML 125 ML IV (10:30)
[2024-04-03] MEDS: oxytocin 30 UNIT/500 ML BAG IV (10:30)
[2024-04-03] MEDS: valACYclovir 1,000 mg Tablet 500 MG PO (13:09)
[2024-04-03 13:26] LABS: Amphetamines Screen Urine Negative (Negative); Barbiturates Screen Urine Negative (Negative); Benzodiazepines Screen Urine Negative (Negative); Cocaine Screen Urine Negative (Negative); Opiate Screen Urine Negative (Negative); PCP Screen Urine Negative (Negative); THC Screen Urine Negative (Negative)
[2024-04-03] MEDS: lidocaine 2% INJ 20 mL INJECTION (18:20)
--- NOTE | 2024-04-03 18:40 | PM.DELIVERY ---
Delivery Note: Date of delivery: April 03, 2024 Pre-delivery diagnoses: 1. 39-week IUP 2. Previous (breech) 3. Desiring 4. Spontaneous rupture of membranes 5. History of genital herpes (negative exam today) Post-delivery diagnoses: Shoulder dystocia requiring suprapubic pressure Procedure: 33-year-old female G3, P3 delivered a viable male OA presentation. Shoulder dystocia was encountered after delivery of the vertex. The patient's legs were flexed, and suprapubic pressure provided by the nursing staff resulted in rotation of the shoulder to deliver the anterior shoulder followed by the posterior shoulder and the remainder the baby's body. The infant was stimulated, resulting in a robust cry. After delayed cord clamping, the cord was clamped x 2 and cut. The baby was placed on the mother's chest for bonding and nursing evaluation. The patient's fundus was massaged and the placenta presented in a Young presentation with trailing membranes. Cord pH and cord blood were drawn and handed off. Three-vessel cord was evaluated. The uterus firmed well with massage and IV Pitocin solution. The vaginal vault and perineum were examined with a second-degree midline laceration noted. This was repaired with 2-0 Vicryl with good confucianism of anatomy. The uterus was once again massaged and remained firm. 7/9 weight-7 pounds 9 ounces anesthesia?none Op report anesthesia: None Post Delivery Diagnoses: Genital HSV: Qualifiers: Herpes simplex infection site: unspecified Qualified Code(s): A60.00 - Herpesviral infection of urogenital system, unspecified History History History 3 Term 3 0 Miscarriages/Ectopic 0 Living Children 3 A&P Assessment and plan (1) 39 weeks gestation of : (2) Spontaneous rupture of membranes: (3) H/O section: (4) Genital HSV: Qualifiers: Herpes simplex infection site: unspecified Qualified Code(s): A60.00 - Herpesviral infection of urogenital system, unspecified (5) Major depressive disorder, recurrent severe without psychotic features: (6) (vaginal after ): Began care Continue acyclovir Continue care RhoGAM for Rh- status Coding Level of Care Code Acute Code for Chg Fwd Diagnoses 39 weeks gestation of Z3A.39 Spontaneous rupture of membranes H/O section Z98.891 Genital herpes simplex, unspecified site A60.00 Herpes simplex infection site: unspecified Major depressive disorder, recurrent severe without psychotic features F33.2 (vaginal after ) O34.219
[2024-04-03] MEDS: ibuprofen 800 mg tablet PO (21:02)
[2024-04-04] VITALS (7 sets, daily range): BP systolic 105–131; BP diastolic 63–80; PULSE 65–80; RESP 16–17; TEMP 36.6–36.7; O2SAT 97–99
--- NOTE | 2024-04-04 02:19 | PC.NURSE ---
1802- Patient complete 1802- Patient set up for delivery 1806- Baby head delivered verbalized by Jade Figueroa, VARINDER 1807- Per request of physician suprapubic pressure preformed by Jade Figueroa RN and Payton Morris RN. 180- Baby delivered 180- Baby at perineum while physician holding 1810- Baby skin to skin with mom, cord clamped and cut, vitals 100HR, 50RR 181- Baby skin to skin with mom vitals 130HR, 50RR 1818- Bruising noted on baby face pulse ox applied, vitals 150HR, 60RR, 95%. Apgars 7 &9, 2 minute shoulder dystocia, bruising to be monitored, incident report completed.
[2024-04-04] MEDS: HYDROcodone-acetaminophen 5-325 mg Tablet PO (02:28)
[2024-04-04 07:21] LABS: Hematocrit 40.4 % (36-47); Mean Corpuscular HGB Conc 32.4 g/dL (30-55); Mean Corpuscular Hemoglobin 28.8 pg (27-33); Mean Corpuscular Volume 88.8 fl (85-98); Mean Platelet Volume 11.9 fL (7.4-10.4); Platelet Count 166 10^3/cmm (157-399); Red Blood Count 4.55 10^6/uL (3.85-5.65); Red Cell Distribution Width 13.5 % (12.1-15.1); White Blood Count 17.97 10^3/uL (3.29-11.43)
[2024-04-04] MEDS: docusate sodium 100 mg Capsule PO ×2 (10:49→18:12)
[2024-04-04] MEDS: valACYclovir 1,000 mg Tablet 500 MG PO (10:49)
[2024-04-04] MEDS: PRENATAL VIT NO.130/IRON/FOLIC 1 EACH TABLET PO (10:49)
[2024-04-04] MEDS: ibuprofen 800 mg tablet PO ×2 (10:50→18:12)
[2024-04-04] MEDS: acetaminophen 325 mg Tablet 650 MG PO (13:37)
--- NOTE | 2024-04-04 15:36 | PM.DCS ---
Discharge Providers Date of Admission: 04/03/24 02:40 Date of Discharge: April 04, 2024 Attending Provider at Admission: Sonny Warner MD Attending Provider at Discharge: Sonny Warner MD Primary Care Provider: Anna Bustillos DO Diagnoses at Discharge Discharge Diagnosis (1) 39 weeks gestation of : Details from hospital stay: 33-year-old female s/p after of viable male . Patient's stay has been uneventful, she is ambulating, tolerating regular diet and voiding. Patient is breast-feeding baby. I discussed her delivery in great detail with her, she has some periorbital hemorrhages which I explained will absorb and clear without any therapy over the next few weeks. Her vision is clear. Discharge instructions were reviewed to include no heavy lifting pushing pulling no sexual intercourse x 6 weeks. Patient had requested to restart her depression meds will start at lowest dose and advised her to continue after she is goes home. Patient understands and agrees. Patient is also been advised to call Saturday to schedule a 4-week follow-up visit. VSS, afebrile Abdomen?soft, fundus firm below umbilicus. Lochia light. Extremities?negative edema, negative Homans' sign. Status: Acute (2) Spontaneous rupture of membranes: Status: Acute (3) H/O section: Status: Acute (4) Genital HSV: Status: Acute Qualifiers: Herpes simplex infection site: unspecified Qualified Code(s): A60.00 - Herpesviral infection of urogenital system, unspecified (5) Major depressive disorder, recurrent severe without psychotic features: Details from hospital stay: Patient encouraged to continue home meds. Status: Acute (6) (vaginal after ): Status: Acute Reason for Visit Reason for Visit: possible ROM Hospital Course Hospital Course See above Physical Exam Const: COMMON NORMALS: patient oriented x3 Back/Pelvis: OTHER: Abdomen?soft, fundus firm. Lochia light Extremity: COMMON NORMALS: normal to inspection, no clubbing, cyanosis or edema and no calf tenderness Neuro: COMMON NORMALS: patient oriented x3, CN's II-XII intact bilaterally and moves all extremities Discharge Data Studies Completed and Pending Laboratory Results WBC 17.97 10^3/uL (3.29-11.43) H 04/04/24 07:05 RBC 4.55 10^6/uL (3.85-5.65) 04/04/24 07:05 Hgb 13.10 g/dL (11.27-16.99) 04/04/24 07:05 Hct 40.4 % (36-47) 04/04/24 07:05 MCV 88.8 fl (85-98) 04/04/24 07:05 MCH 28.8 pg (27-33) 04/04/24 07:05 MCHC 32.4 g/dL (30-55) 04/04/24 07:05 RDW 13.5 % (12.1-15.1) 04/04/24 07:05 Plt Count 166 10^3/cmm (157-399) 04/04/24 07:05 MPV 11.9 fL (7.4-10.4) H 04/04/24 07:05 Neut % (Auto) 66.7 % 04/03/24 02:00 Lymph % (Auto) 20.9 % 04/03/24 02:00 [place] % (Auto) 8.8 % 04/03/24 02:00 Eos % (Auto) 1.1 % 04/03/24 02:00 Baso % (Auto) 0.4 % 04/03/24 02:00 Neut # (Auto) 9.09 10^3/uL (1.8-7.7) H 04/03/24 02:00 Lymph # (Auto) 2.9 10^3/uL (0.8-4.8) 04/03/24 02:00 [place] # (Auto) 1.2 10^3/uL (0.2-0.9) H 04/03/24 02:00 Eos # (Auto) 0.2 10^3/uL (0.0-0.8) 04/03/24 02:00 Baso # (Auto) 0.1 10^3/uL (0.0-0.1) 04/03/24 02:00 Nucleated RBC % (auto) 0 % 04/03/24 02:00 Nucleated RBCs # 0.0 /100WBC 04/03/24 02:00 Fluid pH (paper) Positive H 04/03/24 01:11 Urine Opiates Screen Negative ng/mL (Negative) 04/03/24 11:47 Ur Barbiturates Screen Negative ng/mL (Negative) 04/03/24 11:47 Ur Phencyclidine Scrn Negative ng/mL (Negative) 04/03/24 11:47 Ur Amphetamines Screen Negative ng/mL (Negative) 04/03/24 11:47 U Benzodiazepines Scrn Negative ng/mL (Negative) 04/03/24 11:47 Urine Cocaine Screen Negative ng/mL (Negative) 04/03/24 11:47 U Marijuana (THC) Screen Negative ng/mL (Negative) 04/03/24 11:47 Blood Type O Negative 04/03/24 02:00 Rho(D) Type Rh negative 04/03/24 02:00 Antibody Screen Positive 04/03/24 02:00 Antibody Identification Anti-D 04/03/24 02:00 Vitals Last Vital Signs Temp 98.0 F 04/04/24 00:15 Pulse 79 04/04/24 04:14 Resp 16 04/04/24 04:14 BP 115/68 04/04/24 04:14 Pulse Ox 99 04/04/24 02:20 O2 Del Method Room Air 04/04/24 02:20 Discharge Plan Discharge Patient Disposition: Home Condition: Stable Prescriptions: Continued RhoGAM Ultra-Filtered PLUS 1,500 unit (300 mcg) syringe 300 mcg IM ONCE Qty: 1 0RF famotidine 20 mg tablet 20 mg PO BID Qty: 60 3RF metoclopramide HCl [Reglan] 10 mg tablet 10 mg PO Q6H PRN (Reason: heartburn) Qty: 60 2RF hydroxyzine HCl 25 mg tablet 25 mg PO .bid prn PRN (Reason: itching) Qty: 40 1RF Rx Instructions: take 1/2 tab; if no improvement in 1-2 hours, take additional 1/2 tab Classic 28 mg iron- 800 mcg tablet PO Zyrtec 10 mg capsule 10 mg PO DAILY PRN valacyclovir 500 mg tablet See Rx Instructions .ROUTE .COMPLEX Qty: 60 0RF Dose Instruction: TAKE 1 TABLET(500 MG) BY MOUTH TWICE DAILY Rx Instructions: TAKE 1 TABLET(500 MG) BY MOUTH TWICE DAILY Discharge Orders: Discharge Order (Routine); Ordered 04/04/24 Ordered By: Liv Beck Discharge Diet: Advance as tolerated and Regular Discharge Activity: Limit activity as instructed Patient Instructions: Opioid Safety Activity Restrictions/Additional Instructions: No heavy lifting pushing or pulling, no sexual intercourse x 6 weeks. Assessment: 1. Status post ?viable male delivered Plan of Treatment: Discharge to home Follow-up for visit in 4 to 6 weeks Continue home meds Discharge Attestations Time Spent in Discharge Care*: less than 30 min Quality Metrics Clinical Quality Measures [ No reported AMI, CVA or VTE this stay] Coding Level of Care Code Acute Code for Chg Fwd Diagnoses 39 weeks gestation of Z3A.39 Spontaneous rupture of membranes H/O section Z98.891 Genital herpes simplex, unspecified site A60.00 Herpes simplex infection site: unspecified Major depressive disorder, recurrent severe without psychotic features F33.2 (vaginal after ) O34.219
== END 2024-04-04 18:37 | disposition home or self-care (01) | DRG 806 ==
LOC: OPOB 02:41 → OBGYN 02:41
PROVIDERS: Obstetrics & Gynecology; Admitting Provider Obstetrics & Gynecology; PCP Family Medicine; Visit Provider Obstetrics & Gynecology
DX: O98.32 Other infections with a predominantly sexual mode of transmission complicating childbirth (principal); F33.2 Major depressive disorder, recurrent severe without psychotic features; Z37.0 Single live birth; A60.00 Herpesviral infection of urogenital system, unspecified; Z3A.39 39 weeks gestation of pregnancy; O75.89 Other specified complications of labor and delivery; H05.239 Hemorrhage of unspecified orbit; O70.1 Second degree perineal laceration during delivery; O34.219 Maternal care for unspecified type scar from previous cesarean delivery; N85.8 Other specified noninflammatory disorders of uterus; O66.0 Obstructed labor due to shoulder dystocia; O99.344 Other mental disorders complicating childbirth
CPT/HCPCS: 36415; 59025; 59409; 80306; 80503; 83986; 85025; 85027; 86850; 86870; 86900; 96374; 96376; 99211; J2590; J2795; J3010; J7121

== ENCOUNTER 2024-07-09 17:31 | Emergency (ER) | payer MEDICAID, SELFPAY ==
[2024-07-09 18:45] VITALS: BP 116/77; PULSE 63; RESP 18; TEMP 36.7; O2SAT 100; BMI 24.8
[2024-07-09 19:22] LABS: Bilirubin Urine Negative (Negative); Blood Urine Negative (Negative); Glucose Urine UA Negative (Normal); Ketones Urine Negative (Negative); Leukocyte Esterase Urine Trace (Negative); Nitrate Urine Negative (Negative); Protein Urine Trace (Negative); Specific Gravity, Urine 1.023 (1.005-1.030); Urine Appearance Clear (CLEAR); Urine Color Yellow (Yellow); pH Urine 5.5 (5-7)
[2024-07-09 19:25] LABS: Add Urine Microscopic? YES; Bacteria Urine 1+ /hpf; Hyaline Casts Urine 1.21 /lpf; RBC Urine 0-2 /hpf (0-2)
[2024-07-09 19:43] LABS: Basophils # 0.1 10^3/uL (0.0-0.1); Basophils % 0.5 %; Eosinophils # 0.2 10^3/uL (0.0-0.8); Eosinophils % 1.8 %; Hematocrit 43.8 % (36-47); Lymphocytes # 4.3 10^3/uL (0.8-4.8); Lymphocytes % 43.9 %; Mean Corpuscular HGB Conc 31.7 g/dL (30-55); Mean Corpuscular Hemoglobin 28.2 pg (27-33); Mean Corpuscular Volume 88.8 fl (85-98); Monocytes # 0.8 10^3/uL (0.2-0.9); Monocytes % 7.8 %; Neutrophils # 4.45 10^3/uL (1.8-7.7); Neutrophils % 45.7 %; Nucleated Red Blood Cells % 0 %; Platelet Count 394 10^3/cmm (157-399); Red Blood Count 4.93 10^6/uL (3.85-5.65); Red Cell Distribution Width 13.3 % (12.1-15.1); White Blood Count 9.75 10^3/uL (3.29-11.43)
[2024-07-09 19:56] LABS: HCG, Serum Qual Negative (Negative)
[2024-07-09 20:01] LABS: Alanine Aminotransferase 44 U/L (0-33); Albumin Level 3.7 g/dL (3.5-5.2); Alkaline Phosphatase 106 U/L (35-105); Anion Gap 15.3 (5-19); Aspartate Amino Transferase 37 U/L (0-32); Blood Urea Nitrogen 11 mg/dL (6-20); Calcium 8.9 mg/dL (8.5-10.5); Carbon Dioxide 25 mmol/L (22-29); Chloride 103 mmol/L (98-107); Creatinine Clr Calc Pharmacy 98.7739; Globulin 4.1 g/dL (1.3-4.6); Glomerular Filtration Rate 96.4 mL/min (90-130); Glucose 89 mg/dL (65-115); Lipase 20 U/L (13-60); Osmolality Calculated 287 mOsm/kg (285-295); Potassium 4.3 mmol/L (3.5-5.1); Sodium 139 mmol/L (136-145); Total Bilirubin 0.4 mg/dL (0.15-1.2); Total Protein 7.8 g/dL (6.6-8.7)
[2024-07-09 20:22] LABS: Covid PCR NEGATIVE (Negative); Influenza A NEGATIVE (Negative); Influenza B NEGATIVE (Negative); Respiratory Syncytial Virus Ce NEGATIVE (Negative)
--- NOTE | 2024-07-09 21:35 | W.ED.URI ---
HPI - URI/Sore Throat General: Chief Complaint: Upper Respiratory Infection Stated Complaint: weakness Time Seen by Provider: 07/09/24 21:27 History of Present Illness: 33-year-old female who presents emergency room with lightheadedness and feeling like she wants to pass out, cough, congestion, dizziness, lightheadedness for some time now. She also has been having a feeling of thirstiness all the time and this is been going on for months. She says a child of hers did test positive for flu recently. Related Data Home Medications Medication Instructions Recorded Confirmed cetirizine 10 mg capsule (Zyrtec) 10 mg PO DAILY PRN 09/10/23 07/09/24 vits no.126-ferrous fum tab PO 09/10/23 07/09/24 28 mg iron-folic acid 800 mcg tablet (Classic ) buspirone 5 mg tablet 5 mg PO BID 05/18/24 07/09/24 citalopram 40 mg tablet 40 mg PO DAILY 05/18/24 07/09/24 Previous Rx's Medication Instructions Recorded hydroxyzine HCl 25 mg tablet 25 mg PO .bid prn PRN itching #40 01/28/23 tabs famotidine 20 mg tablet 20 mg PO BID #60 tabs 01/22/24 metoclopramide HCl 10 mg tablet 10 mg PO Q6H PRN heartburn #60 tabs 01/22/24 (Reglan) valacyclovir 500 mg tablet See Rx Instructions .Route 05/12/24 .COMPLEX #60 tabs desogestrel 0.15 mg-ethinyl 1 tab PO DAILY #84 tabs 05/18/24 estradiol 0.03 mg tablet (Isibloom) fluconazole 150 mg tablet 150 mg PO Q3D #3 tabs 05/18/24 nystatin-triamcinolone 100,000 1 applic topical BID #30 grams 05/18/24 unit/gram-0.1 % topical ointment levofloxacin 500 mg tablet 500 mg PO DAILY 7 days #7 tabs 05/25/24 cephalexin 500 mg tablet 500 mg PO TID 5 days #15 tabs 07/09/24 Allergies Allergy/AdvReac Type Severity Reaction Status Date / Time No Known Allergies Allergy Verified 07/09/24 18:50 Review of Systems Narrative: Constitutional symptoms: Negative except as documented in HPI. Skin symptoms: Negative except as documented in HPI. Eye symptoms: Negative except as documented in HPI. ENMT symptoms: Negative except as documented in HPI. Respiratory symptoms: Negative except as documented in HPI. Cardiovascular symptoms: Negative except as documented in HPI. Gastrointestinal symptoms: Negative except as documented in HPI. Genitourinary symptoms: Negative except as documented in HPI. Musculoskeletal symptoms: Negative except as documented in HPI. Neurologic symptoms: Negative except as documented in HPI. Psychiatric symptoms: Negative except as documented in HPI. Endocrine symptoms: Negative except as documented in HPI. PFSH ED PFSH: Medical History Genital HSV Cannabis use disorder, moderate, in sustained remission Alcohol use disorder, moderate, in sustained remission Anxiety and depression Diagnosed as a teenager and has used medications on and off in the past. Was on Celexa and BuSpar during her in 2019. Follows with PMD. Does not have a therapist. No pertinent past medical history Denies diabetes, asthma, hypertension, seizures, DVT/PE. PCP: Dr. Ledesma Surgical History H/O section S/P laparoscopy In 2010 for bilateral ovarian cysts---this surgery was performed by Dr. Vanegas Family History Father Diabetes Hypertension Heart disease of same Hyperlipidemia Mother Hypertension Hyperlipidemia Denies family history of Colon cancer Ovarian cancer Breast cancer Uterine cancer Thyroid disease Stroke Social History Smoking and tobacco/nicotine status: current every day tobacco/nicotine user Physical Exam Narrative: EXAM NARRATIVE: General: Alert, no acute distress. Skin: Warm, dry. Head: Normocephalic, atraumatic. Neck: Supple, trachea midline. Eye: Extraocular movements are intact. Ears, nose, mouth and throat: mucosa moist. Cardiovascular: Regular, Normal peripheral perfusion. Respiratory: Lungs are clear to auscultation, respirations are non-labored, breath sounds are equal, Symmetrical chest wall expansion. Gastrointestinal: Soft, Nontender, Non distended Musculoskeletal: Normal ROM, no deformity. Neurological: Alert and oriented, No focal neurological deficit observed. Psychiatric: Cooperative, appropriate mood & affect. Course Vital Signs: Vital signs: Vital Signs Temperature 98.1 F 07/09/24 18:45 Pulse Rate 63 07/09/24 18:45 Respiratory Rate 18 07/09/24 18:45 Blood Pressure 116/77 07/09/24 18:45 Pulse Oximetry 100 07/09/24 18:45 Oxygen Delivery Me thod Room Air 07/09/24 18:45 MDM - URI/Sore Throat Medical Decision Making Medical decision making: Differential diagnosis for patient presenting with generalized weakness including but not limited to and based on the above HPI, review of systems and physical exam: Sepsis. Dehydration. Renal failure. Electrolyte abnormalities. Anemia. Congestive heart failure. Hypotension. Coronary syndrome. Hepatitis. Cirrhosis. Infections such as pneumonia, urinary tract infection, [place]ne illness, Cellulitis, Viral infections including influenza and Covid-19. Workup: labwork and lab/exam driven imaging ordered to evaluate, rule in and rule out above pathologies. Lab Review: Laboratory results were reviewed and interpreted by myself the emergency room physician. No leukocytosis. No anemia. Initial respiratory panel was negative. Possibly a mild early UTI. I reviewed the patient's medical record. Assessment and plan: Viral illness Weakness - Discharged home - Discussed plan with patient. Answered any questions. - Evaluation and treatment of this problem were appropriate in the emergency setting. Lab Data 07/09/24 19:14 07/09/24 19:14 Laboratory Results WBC 9.75 10^3/uL (3.29-11.43) 07/09/24 19:14 RBC 4.93 10^6/uL (3.85-5.65) 07/09/24 19:14 Hgb 13.90 g/dL (11.27-16.99) 07/09/24 19:14 Hct 43.8 % (36-47) 07/09/24 19:14 MCV 88.8 fl (85-98) 07/09/24 19:14 MCH 28.2 pg (27-33) 07/09/24 19:14 MCHC 31.7 g/dL (30-55) 07/09/24 19:14 RDW 13.3 % (12.1-15.1) 07/09/24 19:14 Plt Count 394 10^3/cmm (157-399) 07/09/24 19:14 MPV 10.0 fL (7.4-10.4) 07/09/24 19:14 Neut % (Auto) 45.7 % 07/09/24 19:14 Lymph % (Auto) 43.9 % 07/09/24 19:14 [place] % (Auto) 7.8 % 07/09/24 19:14 Eos % (Auto) 1.8 % 07/09/24 19:14 Baso % (Auto) 0.5 % 07/09/24 19:14 Neut # (Auto) 4.45 10^3/uL (1.8-7.7) 07/09/24 19:14 Lymph # (Auto) 4.3 10^3/uL (0.8-4.8) 07/09/24 19:14 [place] # (Auto) 0.8 10^3/uL (0.2-0.9) 07/09/24 19:14 Eos # (Auto) 0.2 10^3/uL (0.0-0.8) 07/09/24 19:14 Baso # (Auto) 0.1 10^3/uL (0.0-0.1) 07/09/24 19:14 Nucleated RBC % (auto) 0 % 07/09/24 19:14 Nucleated RBCs # 0.0 /100WBC 07/09/24 19:14 Sodium 139 mmol/L (136-145) 07/09/24 19:14 Potassium 4.3 mmol/L (3.5-5.1) 07/09/24 19:14 Chloride 103 mmol/L (98-107) 07/09/24 19:14 Carbon Dioxide 25 mmol/L (22-29) 07/09/24 19:14 Anion Gap 15.3 (5-19) 07/09/24 19:14 BUN 11 mg/dL (6-20) 07/09/24 19:14 Creatinine 0.7 mg/dL (0.5-0.9) 07/09/24 19:14 GFR Calculation 96.4 mL/min (90-130) 07/09/24 19:14 Glucose 89 mg/dL (65-115) 07/09/24 19:14 Calculated Osmolality 287 mOsm/kg (285-295) 07/09/24 19:14 Calcium 8.9 mg/dL (8.5-10.5) 07/09/24 19:14 Total Bilirubin 0.4 mg/dL (0.15-1.2) 07/09/24 19:14 AST 37 U/L (0-32) H 07/09/24 19:14 ALT 44 U/L (0-33) H 07/09/24 19:14 Alkaline Phosphatase 106 U/L (35-105) H 07/09/24 19:14 Total Protein 7.8 g/dL (6.6-8.7) 07/09/24 19:14 Albumin 3.7 g/dL (3.5-5.2) 07/09/24 19:14 Globulin 4.1 g/dL (1.3-4.6) 07/09/24 19:14 Lipase 20 U/L (13-60) 07/09/24 19:14 HCG, Qual Negative (Negative) 07/09/24 19:14 Urine Color Yellow (Yellow) 07/09/24 19:14 Urine Appearance Clear (CLEAR) 07/09/24 19:14 Urine pH 5.5 (5-7) 07/09/24 19:14 Ur Specific [place] 1.023 (1.005-1.030) 07/09/24 19:14 Urine Protein Trace (Negative) A 07/09/24 19:14 Urine Glucose (UA) Negative (Normal) 07/09/24 19:14 Urine Ketones Negative (Negative) 07/09/24 19:14 Urine Blood Negative (Negative) 07/09/24 19:14 Urine Nitrate Negative (Negative) 07/09/24 19:14 Urine Bilirubin Negative (Negative) 07/09/24 19:14 Urine Urobilinogen 1.0 mg/dL (Negative) 07/09/24 19:14 Ur Leukocyte Esterase Trace (Negative) A 07/09/24 19:14 Urine RBC 0-2 /hpf (0-2) 07/09/24 19:14 Urine WBC 11-20 /hpf (0-5) H 07/09/24 19:14 Ur Squamous Epith Cells 11-20 /hpf (0-5) H 07/09/24 19:14 Amorphous Sediment Not Reportable 07/09/24 19:14 Urine Bacteria 1+ /hpf (NONE) H 07/09/24 19:14 Hyaline Casts 1.21 /lpf 07/09/24 19:14 Coronavirus (PCR) Negative (Negative) 07/09/24 18:54 Influenza A (PCR) Negative (Negative) 07/09/24 18:54 Influenza Type B (PCR) Negative (Negative) 07/09/24 18:54 RSV (PCR) Negative (Negative) 07/09/24 18:54 All radiology interpretation(s) finalized by discharge Discharge Plan Discharge Patient Disposition: Home Clinical Impression: Upper respiratory infection Condition: Stable Prescriptions: New cephalexin 500 mg tablet 500 mg PO TID 5 Days Qty: 15 0RF No Action RhoGAM Ultra-Filtered PLUS 1,500 unit (300 mcg) syringe 300 mcg IM ONCE Qty: 1 0RF famotidine 20 mg tablet 20 mg PO BID Qty: 60 3RF metoclopramide HCl [Reglan] 10 mg tablet 10 mg PO Q6H PRN (Reason: heartburn) Qty: 60 2RF buspirone 5 mg tablet 5 mg PO BID citalopram 40 mg tablet 40 mg PO DAILY desogestrel-ethinyl estradiol [Isibloom] 0.15-0.03 mg tablet 1 tab PO DAILY Qty: 84 0RF fluconazole 150 mg tablet 150 mg PO Q3D Qty: 3 0RF Rx Instructions: may repeat third dose 72 hrs after second dose if symptoms persist nystatin-triamcinolone 100,000-0.1 unit/gram-% ointment 1 applic topical BID Qty: 30 0RF hydroxyzine HCl 25 mg tablet 25 mg PO .bid prn PRN (Reason: itching) Qty: 40 1RF Rx Instructions: take 1/2 tab; if no improvement in 1-2 hours, take additional 1/2 tab Classic 28 mg iron- 800 mcg tablet PO Zyrtec 10 mg capsule 10 mg PO DAILY PRN valacyclovir 500 mg tablet See Rx Instructions .ROUTE .COMPLEX Qty: 60 0RF Dose Instruction: TAKE 1 TABLET(500 MG) BY MOUTH TWICE DAILY Rx Instructions: TAKE 1 TABLET(500 MG) BY MOUTH TWICE DAILY levofloxacin 500 mg tablet 500 mg PO DAILY 7 Days Qty: 7 0RF Discharge Orders: Discharge ED (Routine); Ordered 07/09/24 Ordered By: Alessandra Shahid Referrals: Anna Bustillos DO [Primary Care Provider] - Discharge Diet: Usual diet Discharge Activity: Increase activity as tolerated Patient Instructions: Urinary Tract Infection in Women (ED), Influenza (ED), Opioid Safety, Pain Management Activity Restrictions/Additional Instructions: Thank you for choosing [facility] for your healthcare needs today. Please realize this is an emergency room and that we are providing you with a medical screening exam and this may not be complete and all inclusive of all the testing and or work up that you may need to determine your ailment or severity of your illness. You have been screened and evaluated and felt safe for discharge. Health conditions do change or evolve sometimes and as such it is important that you follow up with your Primary Doctor to be re checked, 3-5 days is a general good time frame for follow up. You are always welcome to return to the ED for re assessment if your symptoms are worsening or you have new concerns Coding Level of Care Code ED Information Security Architect for Alma Epperson
[2024-07-09] MEDS: cephALEXin 500 mg Capsule PO (21:49)
[2024-07-09 21:58] VITALS: BP 117/68; PULSE 85; RESP 17; O2SAT 99
[2024-07-09 23:47] LABS: Adenovirus Not Detected (NOT DETECT); Chlamydia Pneumoniae Not Detected (NOT DETECT); Coronavirus 229E,HKU1,NL63,OC4 Not Detected (NOT DETECT); Human Metapneumovirus Not Detected (NOT DETECT); Human Rhinovirus/Enterovirus Not Detected (NOT DETECT); Influenza A Not Detected (NOT DETECT); Influenza A H1 Not Detected (NOT DETECT); Influenza A H1-2009 Not Detected (NOT DETECT); Influenza A H3 Not Detected (NOT DETECT); Influenza B Not Detected (NOT DETECT); Mycoplasma Pneumoniae Not Detected (NOT DETECT); Parainfluenza Virus Type 1 Not Detected (NOT DETECT); Parainfluenza Virus Type 2 Not Detected (NOT DETECT); Parainfluenza Virus Type 3 Not Detected (NOT DETECT); Parainfluenza Virus Type 4 Not Detected (NOT DETECT); Respiratory Syncytial Virus A Not Detected (NOT DETECT); Respiratory Syncytial Virus B Not Detected (NOT DETECT); SARS-COV-2 Not Detected (NOT DETECT)
--- NOTE | 2024-07-10 12:58 | PC.NURSE ---
prescription x1 called in to [facility]
== END 2024-07-09 21:54 | disposition home or self-care (01) ==
PROVIDERS: Emergency Medicine; Emergency Provider Emergency Medicine; PCP Family Medicine
DX: J06.9 Acute upper respiratory infection, unspecified (principal); Z11.52 Encounter for screening for COVID-19; Z72.0 Tobacco use
CPT/HCPCS: 36415; 80053; 81001; 83690; 84703; 85025; 87486; 87581; 87633; 87637; 99283

== ENCOUNTER 2024-11-18 18:25 | Emergency (ER) | payer OTHER, MEDICAID, SELFPAY ==
[2024-11-18 18:35] VITALS: BP 135/76; PULSE 82; RESP 16; TEMP 36.4; O2SAT 99
--- NOTE | 2024-11-18 19:04 | XRR_ITS ---
PROCEDURE INFORMATION: Exam: XR Left Shoulder Exam date and time: 11/18/2024 7:05 PM Age: 33 years old Clinical indication: Injury or trauma; Other: Large box fell on PT and they fell on to lt shoulder; Work related; Sprain or strain; Left TECHNIQUE: Imaging protocol: Radiologic exam of the left shoulder. Views: 2 or more views. COMPARISON: CR XR chest 2V* [id number] 12/08/2021 12:30 PM FINDINGS: Bones/joints: No evidence of acute fracture or dislocation. No erosive disease. No significant degenerative change. Soft tissues: Normal. XR/XR shoulder LT min 2V* [id number] IMPRESSION: No acute bony injury.
--- NOTE | 2024-11-18 19:15 | W.ED.EXTPRO ---
HPI - Extremity Problem General: Chief complaint: Extremity Injury, Upper Stated complaint: Left shoulder work injury Time Seen by Provider: 11/18/24 19:11 Source: patient Mode of arrival: ambulatory Limitations: no limitations History of Present Illness: 33-year-old female who states that she was at work today and a heavy tote it fell and hit her on her left shoulder she been having pain over her scapula and left shoulder since then states is worse with movement of her arm rates the pain a 7 out of 10. Denies any other injuries denies any head injury or neck injury Associated symptoms: Deny chest pain, fever(s) or rash Related Data Home Medications ?Medication ?Instructions ?Recorded ?Confirmed cetirizine 10 mg capsule (Zyrtec) 10 mg PO DAILY PRN 09/10/23 07/09/24 vits no.126-ferrous fum tab PO 09/10/23 07/09/24 28 mg iron-folic acid 800 mcg tablet (Classic ) buspirone 5 mg tablet 5 mg PO BID 05/18/24 07/09/24 citalopram 40 mg tablet 40 mg PO DAILY 05/18/24 07/09/24 Previous Rx's ?Medication ?Instructions ?Recorded hydroxyzine HCl 25 mg tablet 25 mg PO .bid prn PRN itching #40 01/28/23 tabs famotidine 20 mg tablet 20 mg PO BID #60 tabs 01/22/24 metoclopramide HCl 10 mg tablet 10 mg PO Q6H PRN heartburn #60 tabs 01/22/24 (Reglan) valacyclovir 500 mg tablet See Rx Instructions .Route 05/12/24 .COMPLEX #60 tabs fluconazole 150 mg tablet 150 mg PO Q3D #3 tabs 05/18/24 nystatin-triamcinolone 100,000 1 applic topical BID #30 grams 05/18/24 unit/gram-0.1 % topical ointment levofloxacin 500 mg tablet 500 mg PO DAILY 7 days #7 tabs 05/25/24 desogestrel 0.15 mg-ethinyl See Rx Instructions .Route 11/10/24 estradiol 0.03 mg tablet (Isibloom) .COMPLEX #84 tabs naproxen 500 mg tablet (Naprosyn) 500 mg PO BID PRN pain #20 tabs 11/18/24 Allergies Allergy/AdvReac Type Severity Reaction Status Date / Time No Known Allergies Allergy Verified 11/18/24 18:38 Review of Systems Const: Denies: fever(s), chills, body aches or change in appetite ENMT: Denies: throat pain or dental pain Card: Denies: chest pain Resp: Denies: dyspnea GI: Denies: abdominal pain, nausea, vomiting or diarrhea Musc: Reports: extremity pain; Denies: neck pain or back pain Skin/Breast: Denies: rash Neuro: Denies: headache(s) PFSH ED PFSH: Medical History Genital HSV Cannabis use disorder, moderate, in sustained remission Alcohol use disorder, moderate, in sustained remission Anxiety and depression Diagnosed as a teenager and has used medications on and off in the past. Was on Celexa and BuSpar during her in 2019. Follows with PMD. Does not have a therapist. No pertinent past medical history Denies diabetes, asthma, hypertension, seizures, DVT/PE. PCP: Dr. Ledesma Surgical History H/O section S/P laparoscopy In 2010 for bilateral ovarian cysts---this surgery was performed by Dr. Vanegas Family History Father Diabetes Hypertension Heart disease of same Hyperlipidemia Mother Hypertension Hyperlipidemia Denies family history of Colon cancer Ovarian cancer Breast cancer Uterine cancer Thyroid disease Stroke Social History Smoking and tobacco/nicotine status: current every day tobacco/nicotine user Physical Exam Const: COMMON NORMALS: no acute distress, patient oriented x3 and healthy appearing HENMT: COMMON NORMALS: normocephalic and atraumatic HEAD & SCALP: normocephalic and atraumatic Eye: COMMON NORMALS: conjunctivae normal CONJUNCTIVA: Yes conjunctivae normal Neck/C-Spine: COMMON NORMALS: full ROM and supple Chest: COMMONS NORMALS: normal inspection of the chest Resp: COMMON NORMALS: normal respiratory effort Cardio: COMMON NORMALS: regular rate RATE: regular rate Extremity: NARRATIVE EXTREMITY EXAM: Tenderness over left shoulder and scapula no obvious deformity distal pulses intact Neuro: COMMON NORMALS: patient oriented x3, moves all extremities and no focal motor deficits Psych: COMMON NORMALS: mental status grossly normal, Normal thought process present and cooperative THOUGHT PROCESS: Normal thought process present Skin: COMMON NORMALS: no rashes or lesions noted and no wounds GENERAL SKIN EXAM: no rashes or lesions noted Course Vital Signs: Vital signs: Vital Signs Temperature 97.5 F L 11/18/24 18:35 Pulse Rate 82 11/18/24 18:35 Respiratory Rate 16 11/18/24 18:35 Blood Pressure 135/76 11/18/24 18:35 Pulse Oximetry 99 11/18/24 18:35 Oxygen Delivery Me thod Room Air 11/18/24 18:35 MDM - Extremity (Nontraumatic) Medical Decision Making Patient presents for left shoulder contusion imaging here is negative she is stable for discharge follow-up PCP return if worsening. Medical Records I reviewed the patient's medical records. XR interpretation done by ED provider, pending radiology final review ED provider radiology interpretation(s): xr L shoulder: no acute abnormality Discharge Plan Discharge Patient Disposition: Home Clinical Impression: Contusion of left scapula Condition: Stable Prescriptions: New naproxen [Naprosyn] 500 mg tablet 500 mg PO BID PRN (Reason: pain) Qty: 20 0RF No Action RhoGAM Ultra-Filtered PLUS 1,500 unit (300 mcg) syringe 300 mcg IM ONCE Qty: 1 0RF famotidine 20 mg tablet 20 mg PO BID Qty: 60 3RF metoclopramide HCl [Reglan] 10 mg tablet 10 mg PO Q6H PRN (Reason: heartburn) Qty: 60 2RF buspirone 5 mg tablet 5 mg PO BID citalopram 40 mg tablet 40 mg PO DAILY fluconazole 150 mg tablet 150 mg PO Q3D Qty: 3 0RF Rx Instructions: may repeat third dose 72 hrs after second dose if symptoms persist nystatin-triamcinolone 100,000-0.1 unit/gram-% ointment 1 applic topical BID Qty: 30 0RF hydroxyzine HCl 25 mg tablet 25 mg PO .bid prn PRN (Reason: itching) Qty: 40 1RF Rx Instructions: take 1/2 tab; if no improvement in 1-2 hours, take additional 1/2 tab Classic 28 mg iron- 800 mcg tablet PO Zyrtec 10 mg capsule 10 mg PO DAILY PRN valacyclovir 500 mg tablet See Rx Instructions .ROUTE .COMPLEX Qty: 60 0RF Dose Instruction: TAKE 1 TABLET(500 MG) BY MOUTH TWICE DAILY Rx Instructions: TAKE 1 TABLET(500 MG) BY MOUTH TWICE DAILY levofloxacin 500 mg tablet 500 mg PO DAILY 7 Days Qty: 7 0RF desogestrel-ethinyl estradiol [Isibloom] 0.15-0.03 mg tablet See Rx Instructions .ROUTE .COMPLEX Qty: 84 0RF Dose Instruction: TAKE 1 TABLET BY MOUTH DAILY Rx Instructions: TAKE 1 TABLET BY MOUTH DAILY Discharge Orders: Discharge ED (Routine); Ordered 11/18/24 Ordered By: Blas Aldrich Referrals: Anna Bustillos DO [Primary Care Provider, BASE REMOVER] Discharge Diet: Advance as tolerated Discharge Activity: Resume usual activity Patient Instructions: Contusion in Adults (ED) Stand Alone Forms: Work/School Release Print Language: Burmese Coding Level of Care Code ED Channel Opener Outsoles for Alma Epperson
[2024-11-18] MEDS: HYDROcodone-acetaminophen 7.5-325 mg Tablet 1 TAB PO (19:26)
[2024-11-18 19:30] VITALS: BP 118/79; PULSE 68; O2SAT 99
== END 2024-11-18 19:31 | disposition home or self-care (01) ==
PROVIDERS: Emergency Provider Emergency Medicine; PCP Family Medicine
DX: S40.012A Contusion of left shoulder, initial encounter (principal); Z72.0 Tobacco use; W20.8XXA Other cause of strike by thrown, projected or falling object, initial encounter
CPT/HCPCS: 73030; 99283; J9999

== ENCOUNTER 2025-02-25 11:18 | Emergency (ER) | payer MEDICAID, SELFPAY ==
--- NOTE | 2025-02-25 11:26 | XRR_ITS ---
PROCEDURE INFORMATION: Exam: XR Chest Exam date and time: 02/25/2025 11:43 AM Age: 34 years old Clinical indication: Cough and dyspnea; Additional info: Dyspnea/cough TECHNIQUE: Imaging protocol: Radiologic exam of the chest. Views: 1 view. COMPARISON: No relevant prior studies available. FINDINGS: Lungs: Unremarkable. No consolidation. Pleural spaces: No pneumothorax. Heart/Mediastinum: Unremarkable. No cardiomegaly. Bones/joints: Unremarkable. XR/XR chest 1V portable [id number] IMPRESSION: No acute findings.
--- NOTE | 2025-02-25 11:26 | ECG_ITS ---
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
[2025-02-25 11:28] VITALS: BP 126/79; PULSE 87; RESP 18; TEMP 36.7; O2SAT 100
--- OUTSIDE RECORDS SUMMARY | 2025-02-25 11:42 | XMS_ITS | Clinical Summary ---
Author Organization [facility] Address [address] Galindo: Epic Prelude ADT DEON BAUMAN [address] Care Team Providers Care Completion Engineer Name Role Phone Gertrude Camargo MD Primary Care Provider [phone] Allergies Active Allergy Reactions Criticality Noted Date Comments Penicillins Other (See Comments) 09/16/2015 Vaginal pain, vaginal itching Medications HYDROcodone-ashley taminophen (NORCO) 5-325 mg tablet Take 1 Tablet by mouth every 6 hours as needed for Pain. Max Daily Amount: 4 Tablet 12 Tablet None 7 Active fluticasone propionate (FLONASE) 50 mcg/spray [place], Suspension nasal inhaler ADMINISTER 2 SPRAYS IN EACH NOSTRIL DAILY. 16 Gram 1 6 Active Family History Medical History Relation Name Comments Diabetes Father Cancer Other Relation Name Status Comments Father Alive Other Social History Tobacco Use Types Packs/Day Years Used Date Smoking Tobacco: Never Smokeless Tobacco: Never Alcohol Use Standard Drinks/Week Comments No 0 (1 standard drink = 0.6 oz pur e alcohol) Comments Unknown Sex and Gender Information Value Date Recorded Sex Assigned at Not on file Legal Sex Female 1:52 PM [employer] Gender Identity Not on file Sexual Orientation Not on file Last Filed Vital Signs Vital Sign Reading Time Taken Comments Blood Pressure 98/55 06/29/2016 10:25 AM [employer] Pulse 113 09/16/2015 11:28 AM CDT Temperature 36.7 C (98.1 F) 06/29/2016 10:25 AM [employer]OR Respiratory Rate 18 06/29/2016 10:25 AM [employer] Oxygen Saturation - - Inhaled Oxygen Concentration - - Weight 50.9 kg (112 lb 4.8 oz) 06/29/2016 9:14 A M [employer] Height 157.5 cm (5' 2 ) 06/29/2016 9:14 AM [employer] SUPER[employer] Body Mass Index 20.54 06/29/2016 9:14 AM [employer] SUPER[employer] Plan of Treatment Health Maintenance Due Date Last Done Comments DTAP/TDAP/TD VACCINES (1 - Tdap) 2009 HEPATITIS B VACCINES (1 of 3 - 19+ 3-dose series) 11/16 HPV/Cotest (21-29) 12/10/2011 HPV VACCINES (1 - 3-dose SCDM series) 2017 CERVICAL CANCER SCREENING 2020 HPV/Cotest (30-65) 2020 PAP SMEAR 2020 INFLUENZA VACCINE (#1) 2025 Care Teams Completion Engineer Relationship Specialty Start Date End Date Gertrude Camargo MD [address] [place] [id number] PCP - General Family Practice 06/29/16
--- NOTE | 2025-02-25 11:45 | CT_ITS ---
WS: [id number] CT HEAD TECHNIQUE: Noncontrast CT of the head obtained from the skullbase to the vertex. CLINICAL INFORMATION: lelft arm tingling COMPARISON: CT 2020 DLP: 948.[address] scans at [facility] use at least one of these dose optimization techniques: automated exposure control; mA and/or kV adjustment per patient size (includes targeted exams where dose is matched to clinical indication); or iterative reconstruction. FINDINGS: No evidence of intracranial hemorrhage or mass effect. Ventricular system and basal cisterns are patent. No extra-axial fluid collections. No evidence of mass or mass effect. Normal vázquez-white differentiation. Paranasal sinuses and mastoid air cells are well aerated. .Normal visualized soft tissues. CT/CT head wo con* [id number] IMPRESSION: 1. No evidence of intracranial hemorrhage or mass effect. 2. No acute intracranial findings.
--- NOTE | 2025-02-25 11:46 | W.ED.GENADLT ---
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 She says when she woke up she had some nausea and did not feel well. No known fevers. Currently she has no focal motor deficits. She says her arm is tingling and numb feeling. No sensory deficit. Related Data Home Medications ?Medication ?Instructions ?Recorded ?Confirmed cetirizine 10 mg capsule (Zyrtec) 10 mg PO DAILY PRN 09/10/23 01/27/25 vits no.126-ferrous fum tab PO 09/10/23 01/27/25 28 mg iron-folic acid 800 mcg tablet (Classic ) buspirone 5 mg tablet 5 mg PO BID 05/18/24 01/27/25 citalopram 40 mg tablet 40 mg PO DAILY 05/18/24 01/27/25 Previous Rx's ?Medication ?Instructions ?Recorded hydroxyzine HCl 25 mg tablet 25 mg PO .bid prn PRN itching #40 01/28/23 tabs famotidine 20 mg tablet 20 mg PO BID #60 tabs 01/22/24 metoclopramide HCl 10 mg tablet 10 mg PO Q6H PRN heartburn #60 tabs 01/22/24 (Reglan) valacyclovir 500 mg tablet See Rx Instructions .Route 05/12/24 .COMPLEX #60 tabs fluconazole 150 mg tablet 150 mg PO Q3D #3 tabs 05/18/24 nystatin-triamcinolone 100,000 1 applic topical BID #30 grams 05/18/24 unit/gram-0.1 % topical ointment levofloxacin 500 mg tablet 500 mg PO DAILY 7 days #7 tabs 05/25/24 naproxen 500 mg tablet (Naprosyn) 500 mg PO BID PRN pain #20 tabs 11/18/24 desogestrel 0.15 mg-ethinyl See Rx Instructions .Route 12/23/24 estradiol 0.03 mg tablet (Isibloom) .COMPLEX #84 tabs loperamide 2 mg capsule (Imodium 2 mg PO Q4H PRN loose stool #20 01/27/25 A-D) caps Allergies Allergy/AdvReac Type Severity Reaction Status Date / Time No Known Allergies Allergy Verified 01/27/25 08:40 Review of Systems Narrative: Constitutional symptoms: Negative except as documented in HPI. Skin symptoms: Negative except as documented in HPI. Eye symptoms: Negative except as documented in HPI. ENMT symptoms: Negative except as documented in HPI. Respiratory symptoms: Negative except as documented in HPI. Cardiovascular symptoms: Negative except as documented in HPI. Gastrointestinal symptoms: Negative except as documented in HPI. Genitourinary symptoms: Negative except as documented in HPI. Musculoskeletal symptoms: Negative except as documented in HPI. Neurologic symptoms: Negative except as documented in HPI. Psychiatric symptoms: Negative except as documented in HPI. Endocrine symptoms: Negative except as documented in HPI. PFSH ED PFSH: Medical History (Updated 02/25/25 @ 14:05 by Alessandra Shahid MD) Gastroenteritis Genital HSV Cannabis use disorder, moderate, in sustained remission Alcohol use disorder, moderate, in sustained remission Anxiety and depression Diagnosed as a teenager and has used medications on and off in the past. Was on Celexa and BuSpar during her in 2019. Follows with PMD. Does not have a therapist. No pertinent past medical history Denies diabetes, asthma, hypertension, seizures, DVT/PE. PCP: Dr. Ledesma Surgical History H/O section S/P laparoscopy In 2010 for bilateral ovarian cysts---this surgery was performed by Dr. Vanegas Family History Father Diabetes Hypertension Heart disease of same Hyperlipidemia Mother Hypertension Hyperlipidemia Denies family history of Colon cancer Ovarian cancer Breast cancer Uterine cancer Thyroid disease Stroke Social History Smoking and tobacco/nicotine status: never used tobacco/nicotine Physical Exam Narrative: EXAM NARRATIVE: General: Alert, no acute distress. Skin: Warm, dry. Head: Normocephalic, atraumatic. Neck: Supple, trachea midline. Eye: Extraocular movements are intact. Ears, nose, mouth and throat: mucosa moist. Cardiovascular: Regular, Normal peripheral perfusion. Respiratory: Lungs are clear to auscultation, respirations are non-labored, breath sounds are equal, Symmetrical chest wall expansion. Gastrointestinal: Soft, Nontender, Non distended Musculoskeletal: Normal ROM, no deformity. Neurological: Alert and oriented, No focal neurological deficit observed. No motor deficits. No sensory deficits. No facial droop. Psychiatric: Cooperative, appropriate mood & affect. Course Vital Signs: Vital signs: Vital Signs Temperature 98.1 F 02/25/25 11:28 Pulse Rate 88 02/25/25 13:27 Respiratory Rate 18 02/25/25 11:28 Blood Pressure 123/79 02/25/25 13:27 Pulse Oximetry 99 02/25/25 13:27 Oxygen Delivery Me thod Room Air 02/25/25 12:24 MDM - General Adult Medical Decision Making Medical decision making: Differential diagnosis for patient presenting with generalized weakness including but not limited to and based on the above HPI, review of systems and physical exam: Sepsis. Dehydration. Renal failure. Electrolyte abnormalities. Anemia. Congestive heart failure. Hypotension. Coronary syndrome. Hepatitis. Cirrhosis. Infections such as pneumonia, urinary tract infection, Tick bourne illness, Cellulitis, Viral infections including influenza and Covid-19. Workup: labwork and lab/exam driven imaging ordered to evaluate, rule in and rule out above pathologies. Chest x-ray: No acute process. No infiltrate. No pneumothorax. This was reviewed and interpreted by myself the emergency room physician. I also reviewed the radiology report. CT head: No acute intracranial process. no intracranial hemorrhage, no evidence of infarct. no evidence of acute fracture.This was reviewed and interpreted by myself the ER physician. Lab Review: Laboratory results were reviewed and interpreted by myself the emergency room physician. No leukocytosis. No anemia. No renal failure. Urinalysis is negative for infection. Flu COVID and RSV are negative. ABG does show some slight hypocapnia which would possibly indicate some anxiety and tachypnea. I reviewed the patient's medical record. Reexamination: Patient remained stable. No increased work of breathing. No altered mental status. No focal motor deficits. Assessment and plan: Weakness Paresthesia ? Cannot find any acute findings that would explain her symptoms today. Workup has been negative. I discussed this with the patient and she expresses understanding. She will follow with her primary provider. - Discharged home - Discussed plan with patient. Answered any questions. - Evaluation and treatment of this problem were appropriate in the emergency setting. Lab Data 02/25/25 12:32 02/25/25 12:32 Radiology Impressions Chest X-Ray 02/25/25 11:26 IMPRESSION: No acute findings. Head CT 02/25/25 11:45 IMPRESSION: 1. No evidence of intracranial hemorrhage or mass effect. 2. No acute intracranial findings. Laboratory Results WBC 9.31 10^3/uL (3.29-11.43) 02/25/25 12:32 RBC 5.08 10^6/uL (3.85-5.65) 02/25/25 12:32 Hgb 14.00 g/dL (11.27-16.99) 02/25/25 12:32 Hct 43.6 % (36-47) 02/25/25 12:32 MCV 85.8 fl (85-98) 02/25/25 12:32 MCH 27.6 pg (27-33) 02/25/25 12:32 MCHC 32.1 g/dL (30-55) 02/25/25 12:32 RDW 13.1 % (12.1-15.1) 02/25/25 12:32 Plt Count 273 10^3/cmm (157-399) 02/25/25 12:32 MPV 10.2 fL (7.4-10.4) 02/25/25 12:32 Neut % (Auto) 55.3 % 02/25/25 12:32 Lymph % (Auto) 35.6 % 02/25/25 12:32 [place] % (Auto) 7.2 % 02/25/25 12:32 Eos % (Auto) 1.1 % 02/25/25 12:32 Baso % (Auto) 0.5 % 02/25/25 12:32 Neut # (Auto) 5.15 10^3/uL (1.8-7.7) 02/25/25 12:32 Lymph # (Auto) 3.3 10^3/uL (0.8-4.8) 02/25/25 12:32 [place] # (Auto) 0.7 10^3/uL (0.2-0.9) 02/25/25 12:32 Eos # (Auto) 0.1 10^3/uL (0.0-0.8) 02/25/25 12:32 Baso # (Auto) 0.1 10^3/uL (0.0-0.1) 02/25/25 12:32 Nucleated RBC % (auto) 0 % 02/25/25 12:32 Nucleated RBCs # 0.0 /100WBC 02/25/25 12:32 Specimen Type Arterial 02/25/25 12:19 Sample Site Brachial, left 02/25/25 12:19 ABG pH 7.44 (7.35-7.45) 02/25/25 12:19 ABG pCO2 36.7 mmHg (35-45) 02/25/25 12:19 ABG pO2 96.2 mmHg (80.0-100.0) 02/25/25 12:19 ABG PO2/FiO2 Ratio 458 02/25/25 12:19 ABG HCO3 25.0 mmol/L (22-26) 02/25/25 12:19 ABG O2 Saturation 98.7 02/25/25 12:19 ABG Base Excess 1.1 mmol/L (-2.0-2.0) 02/25/25 12:19 Fredy Test N/a 02/25/25 12:19 A-a O2 Gradient 1.0 mmHg (5-10) L 02/25/25 12:19 Hematocrit 42.5 % (37-47) 02/25/25 12:19 Hgb O2 Saturation 97.6 % (95-100) 02/25/25 12:19 Carboxyhemoglobin 0.9 %THgb (0.4-20.1) 02/25/25 12:19 Methemoglobin 0.2 % (0.4-1.5) L 02/25/25 12:19 Total Hemoglobin 13.9 g/dL (12-16) 02/25/25 12:19 Sodium 141.0 mmol/L (131-143) 02/25/25 12:19 Potassium 3.6 mmol/L (3.5-5.0) 02/25/25 12:19 Glucose 123.0 mg/dL (70-115) H 02/25/25 12:19 Ionized Calcium 1.2 mmol/L (1.1-1.4) 02/25/25 12:19 O2 Delivery Device Room air 02/25/25 12:19 FiO2 21.0 % 02/25/25 12:19 Salesperson [employer] ID glc 02/25/25 12:19 Sodium 142 mmol/L (136-145) 02/25/25 12:32 Potassium 3.9 mmol/L (3.5-5.1) 02/25/25 12:32 Chloride 107 mmol/L (98-107) 02/25/25 12:32 Carbon Dioxide 24 mmol/L (22-29) 02/25/25 12:32 Anion Gap 14.9 (5-19) 02/25/25 12:32 BUN 7 mg/dL (6-20) 02/25/25 12:32 Creatinine 0.8 mg/dL (0.5-0.9) 02/25/25 12:32 GFR Calculation 82.1 mL/min (90-130) L 02/25/25 12:32 Glucose 94 mg/dL (65-115) 02/25/25 12:32 Calculated Osmolality 292 mOsm/kg (285-295) 02/25/25 12:32 Lactic Acid 1.4 mmol/L (0.5-2.2) 02/25/25 12:32 Calcium 9.2 mg/dL (8.5-10.5) 02/25/25 12:32 Total Bilirubin 0.3 mg/dL (0.15-1.2) 02/25/25 12:32 AST 18 U/L (0-32) 02/25/25 12:32 ALT 20 U/L (0-33) 02/25/25 12:32 Alkaline Phosphatase 71 U/L (35-105) 02/25/25 12:32 Total Protein 6.9 g/dL (6.6-8.7) 02/25/25 12:32 Albumin 3.9 g/dL (3.5-5.2) 02/25/25 12:32 Globulin 3.0 g/dL (1.3-4.6) 02/25/25 12:32 HCG, Qual Negative (Negative) 02/25/25 12:32 Urine Color [place] (Yellow) A 02/25/25 12:30 Urine Appearance Clear (CLEAR) 02/25/25 12:30 Urine pH 6.0 (5-7) 02/25/25 12:30 Ur Specific [place] 1.013 (1.005-1.030) 02/25/25 12:30 Urine Protein Negative (Negative) 02/25/25 12:30 Urine Glucose (UA) Negative (Normal) 02/25/25 12:30 Urine Ketones Negative (Negative) 02/25/25 12:30 Urine Blood Trace (Negative) A 02/25/25 12:30 Urine Nitrate Negative (Negative) 02/25/25 12:30 Urine Bilirubin Negative (Negative) 02/25/25 12:30 Urine Urobilinogen 0.2 mg/dL (Negative) 02/25/25 12:30 Ur Leukocyte Esterase Trace (Negative) A 02/25/25 12:30 Urine RBC 0-2 /hpf (0-2) 02/25/25 12:30 Urine WBC 6-10 /hpf (0-5) 02/25/25 12:30 Ur Squamous Epith Cells 6-10 /hpf (0-5) 02/25/25 12:30 Amorphous Sediment Not Reportable 02/25/25 12:30 Urine Bacteria None seen /hpf (NONE) 02/25/25 12:30 Hyaline Casts 0-4 /lpf H 02/25/25 12:30 Urine Opiates Screen Negative ng/mL (Negative) 02/25/25 12:30 Ur Barbiturates Screen Negative ng/mL (Negative) 02/25/25 12:30 Ur Phencyclidine Scrn Negative ng/mL (Negative) 02/25/25 12:30 Ur Amphetamines Screen Negative ng/mL (Negative) 02/25/25 12:30 U Benzodiazepines Scrn Negative ng/mL (Negative) 02/25/25 12:30 Urine Cocaine Screen Negative ng/mL (Negative) 02/25/25 12:30 U Marijuana (THC) Screen Negative ng/mL (Negative) 02/25/25 12:30 Influenza A (PCR) Negative (Negative) 02/25/25 12:13 Influenza Type B (PCR) Negative (Negative) 02/25/25 12:13 RSV (PCR) Negative (Negative) 02/25/25 12:13 SARS-CoV-2 (PCR) Negative (Negative) 02/25/25 12:13 All radiology interpretation(s) finalized by discharge Discharge Plan Discharge Patient Disposition: Home Clinical Impression: Weakness, Paresthesia Condition: Stable Prescriptions: No Action RhoGAM Ultra-Filtered PLUS 1,500 unit (300 mcg) syringe 300 mcg IM ONCE Qty: 1 0RF famotidine 20 mg tablet 20 mg PO BID Qty: 60 3RF metoclopramide HCl [Reglan] 10 mg tablet 10 mg PO Q6H PRN (Reason: heartburn) Qty: 60 2RF buspirone 5 mg tablet 5 mg PO BID citalopram 40 mg tablet 40 mg PO DAILY fluconazole 150 mg tablet 150 mg PO Q3D Qty: 3 0RF Rx Instructions: may repeat third dose 72 hrs after second dose if symptoms persist nystatin-triamcinolone 100,000-0.1 unit/gram-% ointment 1 applic topical BID Qty: 30 0RF hydroxyzine HCl 25 mg tablet 25 mg PO .bid prn PRN (Reason: itching) Qty: 40 1RF Rx Instructions: take 1/2 tab; if no improvement in 1-2 hours, take additional 1/2 tab Classic 28 mg iron- 800 mcg tablet PO Zyrtec 10 mg capsule 10 mg PO DAILY PRN loperamide [Imodium A-D] 2 mg capsule 2 mg PO Q4H PRN (Reason: loose stool) Qty: 20 0RF Rx Instructions: administer after each loose stool until symptoms controlled; do not exceed 8 mg per 24 hrs valacyclovir 500 mg tablet See Rx Instructions .ROUTE .COMPLEX Qty: 60 0RF Dose Instruction: TAKE 1 TABLET(500 MG) BY MOUTH TWICE DAILY Rx Instructions: TAKE 1 TABLET(500 MG) BY MOUTH TWICE DAILY levofloxacin 500 mg tablet 500 mg PO DAILY 7 Days Qty: 7 0RF desogestrel-ethinyl estradiol [Isibloom] 0.15-0.03 mg tablet See Rx Instructions .ROUTE .COMPLEX Qty: 84 3RF Dose Instruction: TAKE 1 TABLET BY MOUTH DAILY Rx Instructions: TAKE 1 TABLET BY MOUTH DAILY naproxen [Naprosyn] 500 mg tablet 500 mg PO BID PRN (Reason: pain) Qty: 20 0RF Discharge Orders: Discharge ED (Routine); Ordered 02/25/25 Ordered By: Alessandra Shahid Referrals: Anna Bustillos DO [Primary Care Provider, CONTENT STRATEGIST] Discharge Diet: Usual diet Discharge Activity: Increase activity as tolerated Patient Instructions: Opioid Safety, Pain Management, Patient Portal & [place]iven Instructions Activity Restrictions/Additional Instructions: Thank you for choosing [facility] for your healthcare needs today. You have been screened and evaluated and felt safe for discharge. Health conditions do change or evolve sometimes and as such it is important that you follow up with your Primary Doctor to be re checked, 3-5 days is a general good time frame for follow up. You are always welcome to return to the ED for re assessment if your symptoms are worsening or you have new concerns Print Language: Armenian Coding Level of Care Code ED Barrel Lathe Operator for Alma Epperson
[2025-02-25 12:24] VITALS: BP 118/71; O2SAT 100
[2025-02-25 12:31] LABS: ABG PCO2 36.7 mmHg (35-45); ABG PH Result 7.44 (7.35-7.45); Alveolar-Arterial Oxygen Gradi 1.0 mmHg (5-10); Arterial Blood Gas Hematocrit 42.5 % (37-47); Blood Gas Operator Identificat glc; Blood Gas Sample Site Brachial, left; Blood Gas Sample Type Arterial; Carboxyhemoglobin 0.9 %THgb (0.4-20.1); Glucose Level-ABG 123.0 mg/dL (70-115); HCO3 ABG 25.0 mmol/L (22-26); Ionized Calcium Level - ABG 1.2 mmol/L (1.1-1.4); Methemoglobin 0.2 % (0.4-1.5); Oxygen Saturation ABG 98.7; PO2 ABG 96.2 mmHg (80.0-100.0); PO2 FiO2 Ratio Arterial Blood 458; Potassium Level - ABG 3.6 mmol/L (3.5-5.0); Sodium Level - ABG 141.0 mmol/L (131-143)
[2025-02-25 12:38] VITALS: BP 118/71
[2025-02-25 12:50] LABS: Hematocrit 43.6 % (36-47); Hemoglobin 14.00 g/dL (11.27-16.99); Mean Corpuscular HGB Conc 32.1 g/dL (30-55); Mean Corpuscular Hemoglobin 27.6 pg (27-33); Mean Corpuscular Volume 85.8 fl (85-98); Nucleated Red Blood Cells % 0 %; Platelet Count 273 10^3/cmm (157-399); Red Blood Count 5.08 10^6/uL (3.85-5.65); White Blood Count 9.31 10^3/uL (3.29-11.43)
[2025-02-25 12:55] LABS: Respiratory Syncytial Virus Ce NEGATIVE (Negative); SARS-CoV-2 PCR NEGATIVE (Negative)
[2025-02-25 12:55] LABS: Glucose Urine UA Negative (Normal); Nitrate Urine Negative (Negative); Specific Gravity, Urine 1.013 (1.005-1.030)
[2025-02-25 13:02] LABS: PCP Screen Urine Negative (Negative)
--- NOTE | 2025-02-25 13:11 | PC.NURSE ---
ASSUMED CARE OF PT @1300
[2025-02-25 13:15] LABS: HCG, Serum Qual Negative (Negative)
[2025-02-25 13:17] LABS: Alanine Aminotransferase 20 U/L (0-33); Albumin Level 3.9 g/dL (3.5-5.2); Alkaline Phosphatase 71 U/L (35-105); Anion Gap 14.9 (5-19); Aspartate Amino Transferase 18 U/L (0-32); Blood Urea Nitrogen 7 mg/dL (6-20); Calcium 9.2 mg/dL (8.5-10.5); Carbon Dioxide 24 mmol/L (22-29); Chloride 107 mmol/L (98-107); Globulin 3.0 g/dL (1.3-4.6); Glucose 94 mg/dL (65-115); Lactic Sepsis W/Reflex 1.4 mmol/L (0.5-2.2); Osmolality Calculated 292 mOsm/kg (285-295); Potassium 3.9 mmol/L (3.5-5.1); Sodium 142 mmol/L (136-145); Total Protein 6.9 g/dL (6.6-8.7)
[2025-02-25 13:27] VITALS: BP 123/79; PULSE 88; O2SAT 99
== END 2025-02-25 13:28 | disposition home or self-care (01) ==
PROVIDERS: Family Medicine; Emergency Provider Emergency Medicine; PCP Family Medicine
DX: R53.1 Weakness (principal); R20.2 Paresthesia of skin; Z11.52 Encounter for screening for COVID-19
CPT/HCPCS: 36415; 36600; 70450; 71045; 80051; 80053; 80306; 81001; 82330; 82805; 83605; 84703; 85025; 87637; 93005; 99285

== ENCOUNTER 2025-05-04 16:55 | Emergency (ER) | payer MEDICAID, SELFPAY ==
--- NOTE | 2025-05-04 17:10 | XRR_ITS ---
PROCEDURE INFORMATION: Exam: XR Right Foot Exam date and time: 05/04/2025 5:29 PM Age: 34 years old Clinical indication: Injury or trauma; Other: Twisted foot; Sprain or strain; Right; Additional info: Pain TECHNIQUE: Imaging protocol: Radiologic exam of the right foot. Views: 3 or more views. COMPARISON: CR XR knee RT 3V* [id number] 12/02/2019 6:10 PM FINDINGS: Bones/joints: Mild hallux valgus. No acute fracture or dislocation. Soft tissues: Normal. XR/XR foot RT min 3V* [id number] IMPRESSION: No acute fracture or dislocation.
[2025-05-04 17:34] VITALS: BP 106/68; PULSE 74; RESP 18; TEMP 36.4; O2SAT 97
--- NOTE | 2025-05-04 17:48 | W.ED.LOWEXIN ---
HPI - Extremity Injury (Lower) General: Chief Complaint: Extremity Injury, Lower Stated Complaint: R foot pain Time Seen by Provider: 05/04/25 17:46 Source: patient Mode of arrival: ambulatory Limitations: no limitations History of Present Illness: Patient is a 34-year-old female presents to ED today with a complaint of right foot pain that she sustained approximately 2 to 3 days ago after twisting it. She complains of pain to the lateral aspect of her right foot. She has been ambulatory on the extremity but with discomfort. She is not complaining of ankle pain. She has not noticed any significant swelling. She has no other injuries or complaints at this time. MD complaint: foot injury Onset (ago): day(s) Injury: Right: foot Type of Injury: inversion Place: home Severity: moderate Relieving factors: immobilization Exacerbating factors: weight bearing, movement and palpation Context: walking Associated symptoms: Reports no associated symptoms Other symptoms: none Related Data Home Medications ?Medication ?Instructions ?Recorded ?Confirmed cetirizine 10 mg capsule (Zyrtec) 10 mg PO DAILY PRN 09/10/23 01/27/25 vits no.126-ferrous fum tab PO 09/10/23 01/27/25 28 mg iron-folic acid 800 mcg tablet (Classic ) buspirone 5 mg tablet 5 mg PO BID 05/18/24 01/27/25 citalopram 40 mg tablet 40 mg PO DAILY 05/18/24 01/27/25 Previous Rx's ?Medication ?Instructions ?Recorded hydroxyzine HCl 25 mg tablet 25 mg PO .bid prn PRN itching #40 01/28/23 tabs famotidine 20 mg tablet 20 mg PO BID #60 tabs 01/22/24 metoclopramide HCl 10 mg tablet 10 mg PO Q6H PRN heartburn #60 tabs 01/22/24 (Reglan) valacyclovir 500 mg tablet See Rx Instructions .Route 05/12/24 .COMPLEX #60 tabs fluconazole 150 mg tablet 150 mg PO Q3D #3 tabs 05/18/24 nystatin-triamcinolone 100,000 1 applic topical BID #30 grams 05/18/24 unit/gram-0.1 % topical ointment levofloxacin 500 mg tablet 500 mg PO DAILY 7 days #7 tabs 05/25/24 naproxen 500 mg tablet (Naprosyn) 500 mg PO BID PRN pain #20 tabs 11/18/24 desogestrel 0.15 mg-ethinyl See Rx Instructions .Route 12/23/24 estradiol 0.03 mg tablet (Isibloom) .COMPLEX #84 tabs loperamide 2 mg capsule (Imodium 2 mg PO Q4H PRN loose stool #20 01/27/25 A-D) caps Allergies Allergy/AdvReac Type Severity Reaction Status Date / Time No Known Allergies Allergy Verified 01/27/25 08:40 Review of Systems Musc: Reports: extremity pain (R foot); Denies: extremity swelling, joint pain or joint swelling Neuro: Denies: numbness in extremities, weakness in extremities or sensory changes PFSH ED PFSH: Medical History Gastroenteritis Genital HSV Cannabis use disorder, moderate, in sustained remission Alcohol use disorder, moderate, in sustained remission Anxiety and depression Diagnosed as a teenager and has used medications on and off in the past. Was on Celexa and BuSpar during her in 2019. Follows with PMD. Does not have a therapist. No pertinent past medical history Denies diabetes, asthma, hypertension, seizures, DVT/PE. PCP: Dr. Ledesma Surgical History H/O section S/P laparoscopy In 2010 for bilateral ovarian cysts---this surgery was performed by Dr. Vanegas Family History Father Diabetes Hypertension Heart disease of same Hyperlipidemia Mother Hypertension Hyperlipidemia Denies family history of Colon cancer Ovarian cancer Breast cancer Uterine cancer Thyroid disease Stroke Social History Smoking and tobacco/nicotine status: never used tobacco/nicotine Physical Exam Const: COMMON NORMALS: no acute distress, average body habitus, no limitations, healthy appearing, alert and well nourished Extremity: COMMON NORMALS: capillary refill normal, no clubbing, cyanosis or edema, no calf tenderness and no pedal edema GENERAL: Yes normal exam except as noted RIGHT LOWER EXTREMITY: Yes foot & digits (TTP overlying base of 5th metatarsal) Right foot and digits: Yes inspection (normal gross inspection) and Yes neurovascular exam (normal) Neuro: COMMON NORMALS: moves all extremities, no focal motor deficits and no sensory deficits noted SENSORIUM/ORIENTATION: Yes alert Course Vital Signs: Vital signs: Vital Signs Temperature 97.6 F 05/04/25 17:34 Pulse Rate 74 05/04/25 17:34 Respiratory Rate 18 05/04/25 17:34 Blood Pressure 106/68 05/04/25 17:34 Pulse Oximetry 97 05/04/25 17:34 Oxygen Delivery Me thod Room Air 05/04/25 17:34 MDM - Extremity Injury (Lower) Medical Decision Making XR negative. Will do an NETTIE wrap and crutches. She can follow up with PCP in 1-2 weeks if symptoms are not improving. RICE therapy discussed. Differential Diagnosis Likely ankle sprain and strain, fracture of toe and ankle fracture Medical Records I reviewed the patient's medical records. Lab Data Radiology Impressions Foot X-Ray 05/04/25 17:10 IMPRESSION: No acute fracture or dislocation. All radiology interpretation(s) finalized by discharge Discharge Plan Discharge Patient Disposition: Home Clinical Impression: Right foot sprain Condition: Stable Prescriptions: No Action RhoGAM Ultra-Filtered PLUS 1,500 unit (300 mcg) syringe 300 mcg IM ONCE Qty: 1 0RF famotidine 20 mg tablet 20 mg PO BID Qty: 60 3RF metoclopramide HCl [Reglan] 10 mg tablet 10 mg PO Q6H PRN (Reason: heartburn) Qty: 60 2RF buspirone 5 mg tablet 5 mg PO BID citalopram 40 mg tablet 40 mg PO DAILY fluconazole 150 mg tablet 150 mg PO Q3D Qty: 3 0RF Rx Instructions: may repeat third dose 72 hrs after second dose if symptoms persist nystatin-triamcinolone 100,000-0.1 unit/gram-% ointment 1 applic topical BID Qty: 30 0RF hydroxyzine HCl 25 mg tablet 25 mg PO .bid prn PRN (Reason: itching) Qty: 40 1RF Rx Instructions: take 1/2 tab; if no improvement in 1-2 hours, take additional 1/2 tab Classic 28 mg iron- 800 mcg tablet PO Zyrtec 10 mg capsule 10 mg PO DAILY PRN loperamide [Imodium A-D] 2 mg capsule 2 mg PO Q4H PRN (Reason: loose stool) Qty: 20 0RF Rx Instructions: administer after each loose stool until symptoms controlled; do not exceed 8 mg per 24 hrs valacyclovir 500 mg tablet See Rx Instructions .ROUTE .COMPLEX Qty: 60 0RF Dose Instruction: TAKE 1 TABLET(500 MG) BY MOUTH TWICE DAILY Rx Instructions: TAKE 1 TABLET(500 MG) BY MOUTH TWICE DAILY levofloxacin 500 mg tablet 500 mg PO DAILY 7 Days Qty: 7 0RF desogestrel-ethinyl estradiol [Isibloom] 0.15-0.03 mg tablet See Rx Instructions .ROUTE .COMPLEX Qty: 84 3RF Dose Instruction: TAKE 1 TABLET BY MOUTH DAILY Rx Instructions: TAKE 1 TABLET BY MOUTH DAILY naproxen [Naprosyn] 500 mg tablet 500 mg PO BID PRN (Reason: pain) Qty: 20 0RF Discharge Orders: Discharge ED (Routine); Ordered 05/04/25 Ordered By: Joyce Rodríguez Referrals: Anna Bustillos DO [Primary Care Provider, [employer] OFFICER] Patient Instructions: Foot Sprain (ED), Patient Portal & Estiven Instructions, RICE Therapy Print Language: Macedonian Coding Level of Care Code ED Energy Broker for Alma Epperson
--- OUTSIDE RECORDS SUMMARY | 2025-05-05 05:13 | XMS_ITS | Data Portability ---
Author Organization [place] - Genaro [facility] C[facility], [facility] Address [address] [address] Assessment Encounter Date Assessment Date Assessment LastModified by Organization Details LastModified Time 05/08/2023 05/08/2023 Patient reports she was working this morning and was throwing a filled bedliner into the bin then turned back around and hit left elbow on the metal nozzle. She had instant pain. She is on the verge of tears in the room and is not able to bend arm due to pain. Not available 05/08/2023 09:57:30 Plan of Treatment Reminders Order Date Submit Date Provider Last Modified By Organization Details Last Modified Time Details Appointments None recorded. Lab urinalysis , complete 2023 024 [email or web address] denton [facility] ([facility]), [address] [place] [address], [phone], 4 09:01:33 culture, urine 2023 024 VIRGILINA [facility], [address] [place] [address], [facility] [address] [place], [address], 4 06:32:16 Referral None recorded. Procedures None recorded. Surgeries None recorded. Imaging XR, elbow, 3 or more view [address] [facility] ([facility]), [address] [place] [address], [address], 3 14:23:19 Medication Orders cefdinir 300 mg capsule 2023 024 swilkenin g4 [id number], [address], [place], [place], [id number], 09:01:32 Patient TargetsNo targets recorded. Patient Instructions Encounter Date Encounter Id Patient Instructions Last Modified By Organization Details Last Modified Time 05/08/2023 [id number] Return to clinic if worsening symptoms or if not improving. Not available 05/08/2023 09:55:55 Reason for Referral None Reported. Results Created Date Observation Date Name Description Value Unit Range Abnormal Flag Note LastModifiedBy Organization Detail LastModifiedTime 08/19/19 24 08/21/2023 CULTU RE, URINE , ROUTI NE culture, urine, routine SEE NOTE abnormal CULTU RE, URINE , ROUTI NE Micro Numbe r: [id number] Test Statu s: Final Speci men Sourc e: Urine Speci men Quali ty: Adequ ate Resul t: 10,00 0-49, 000 CFU/m L of Esche hay a coli E.col i ----- ----- ----- - INT DANUTA AMOX/ CLAVU LANAT E S 8 AMP/S ULBAC BALLARD I 16 CEFAZ CLAUDIO R >=64 CEFEP YEIMY R >=32 CEFTA ZIDIM E I 16 CEFTR IAXON E R >=64 CIPRO FLOXA MONISHA R >=4 GENTA MICIN S <=1 IMIPE NEM S <=0.2 5 LEVOF LOXAC IN R >=8 MEROP ENEM S <=0.2 5 NITRO FURAN TOIN S <=16 PIP/T AZOBA CTAM S <=4 TRIME THOPR IM/SARABIA LFA S <=20 S=Isabella cepti ble I=Int ermed iate R=Res istan t * = Not Teste d NR = Not Repor julianna NN = See Thera py Comme nts Not Available [facility] [address], [place], [address], 08/21/2023 13:14:08 08/19/19 24 08/19/2023 urina lysis , compl ete color other Not Available [facility] ([facility]) [address] [place], [address], 08/19/2023 08:17:59 08/19/19 24 08/19/2023 urina lysis , compl ete clarity cloudy clear abnormal Not Available [facility] ([facility]) [address] [place], [address], 08/19/2023 08:17:59 08/19/19 24 08/19/2023 urina lysis , compl ete glucose negati ve negati ve Not Available [facility] ([facility]) [address] [place], [address], 08/19/2023 08:17:59 08/19/19 24 08/19/2023 urina lysis , compl ete bilirubin negati ve negati ve Not Available [facility] ([facility]) [address] [place], [address], 08/19/2023 08:17:59 08/19/19 24 08/19/2023 urina lysis , compl ete ketones negati ve negati ve Not Available [facility] ([facility]) [address] [place], [address], 08/19/2023 08:17:59 08/19/19 24 08/19/2023 urina lysis , compl ete specific gravity 1.025 1.005- 1.025 Not Available [facility] ([facility]) [address] [place], [address], 08/19/2023 08:17:59 08/19/19 24 08/19/2023 urina lysis , compl ete pH 6.0 5.0-7. 0 Not Available [facility] ([facility]) [address] [place], [address], 08/19/2023 08:17:59 08/19/19 24 08/19/2023 urina lysis , compl ete protein 2+ abnormal Not Available [facility] ([facility]) [address] [place], [address], 08/19/2023 08:17:59 08/19/19 24 08/19/2023 urina lysis , compl ete uro 0.2 Not Available [facility] ([facility]) [address] [place], [address], 08/19/2023 08:17:59 08/19/19 24 08/19/2023 urina lysis , compl ete nitrate negati ve negati ve Not Available [facility] ([facility]) [address] [place], [address], 08/19/2023 08:17:59 08/19/19 24 08/19/2023 urina lysis , compl ete blood 3+ negati ve abnormal Not Available [facility] ([facility]) [address] [place], [address], 08/19/2023 08:17:59 08/19/19 24 08/19/2023 urina lysis , compl ete leukocytes 2+ negati ve abnormal Not Available [facility] ([facility]) [address] [place], [address], 08/19/2023 08:17:59 08/19/19 24 08/19/2023 urina lysis , compl ete WBC >100 0 abnormal Not Available [facility] ([facility]) [address] [place], [address], 08/19/2023 08:17:59 08/19/19 24 08/19/2023 urina lysis , compl ete RBC >100 0 abnormal Not Available [facility] ([facility]) [address] [place], [address], 08/19/2023 08:17:59 08/19/19 24 08/19/2023 urina lysis , compl ete epi cells negati ve 0 Not Available [facility] ([facility]) [address] [place], [address], 08/19/2023 08:17:59 08/19/19 24 08/19/2023 urina lysis , compl ete bacteria negati ve Not Available [facility] ([facility]) [address] [place], [address], 08/19/2023 08:17:59 08/19/19 24 08/19/2023 urina lysis , compl ete other negati ve Not Available [facility] ([facility]) [address] [place], [address], 08/19/2023 08:17:59 05/08/20 23 05/08/2023 XR, elbow , 3 or more view No observ ation record ed. [facility] [place] [facility] [address] [place], [address], 05/14/2023 13:19:17 Result Notes None recorded. Procedures Surgical History Date Name Laterality Status Provider Name and Address Organization Details Recorded Time 3 radiography of elbow completed NIKKIE OLIVIA [facility], [place] 05/14/2023 13:19:05 Imaging Results None recorded. Procedure Notes None recorded. Medical Equipment None Reported. Allergies Allergen ID Allergen Name Allergen Category Reaction Reaction Severity Criticality Documentation Date Start Date Code Code System Note Provider Name and Address Organization Details Recorded Time 82381 penicilli n V potassium medicatio n Not available Not available Not available 01/12/2023 5 RxNorm Comme nt: Recor ded 02/09 6:53P M by Enedina Barone ns, SUPPLIER DIVERSITY DIRECTOR, Offic e Visit ; Promo julianna; Signi fican ce: *; Reaso n: Drug aller gy; ; Not Available [facility] 3 02:25:22 06898 amoxicill in medicatio n Not available Not available Not available 01/12/2023 723 RxNorm Comme nt: Recor ded 02/09 6:53P M by Enedina fuentes, SUPPLIER DIVERSITY DIRECTOR, Offic e Visit ; Mingo levine; Claudio michele ce: *; Reaso n: Drug aller gy; ; Not Available [facility] 3 02:25:22 Medications Name Sig Start Date Stop Date Status Note LastModified by Organization Details LastModified Time metronida zole 500 mg tablet TAKE 1 TABLET BY MOUTH TWICE DAILY FOR 7 DAYS 08/20 completed Not Available Not Available Not Available valacyclo vir 500 mg tablet TAKE 1 TABLET BY MOUTH TWICE DAILY active Not Available Not Available No t Available sulfameth oxazole 800 mg-trimet hoprim 160 mg tablet TAKE 1 TABLET BY MOUTH EVERY 12 HOURS FOR 3 DAYS active Not Available Not Available No t Available citalopra m 20 mg tablet TAKE 1 TABLET BY MOUTH EVERY DAY active Not Available Not Available No t Available cephalexi n 500 mg capsule TAKE 1 CAPSULE BY MOUTH THREE TIMES DAILY 08/20 completed Not Available Not Available Not Available oseltamiv ir 75 mg capsule TAKE 1 CAPSULE BY MOUTH TWICE DAILY FOR 5 DAYS active Not Available Not Available No t Available nitrofura ntoin macrocrys chandler 100 mg capsule TAKE 1 CAPSULE BY MOUTH TWICE DAILY FOR 7 DAYS TAKE WITH A MEAL/ROSANNA D 08/20 completed Not Available Not Available Not Available hydroxyzi ne HCl 25 mg tablet TAKE 1 TABLET BY MOUTH TWICE DAILY NEEDED active Not Available Not Available No t Available oxycodone -acetamin ophen 7.5 mg-325 mg tablet TAKE 1 TABLET BY MOUTH EVERY 8 HOURS active Not Available Not Available No t Available norethind vlad (contrace ptive) 0.35 mg tablet TAKE 1 TABLET BY MOUTH DAILY active Not Available Not Available No t Available cefdinir 300 mg capsule TAKE 1 CAPSULE BY MOUTH EVERY 12 HOURS FOR 7 DAYS active Not Available Not Available No t Available fluticaso ne propionat e 50 mcg/actua tion nasal spray,isabella pension USE 2 SPRAYS IN EACH NOSTRIL EVERY DAY active Not Available Not Available No t Available doxycycli ne hyclate 100 mg tablet bid 08/20 completed 62883; Recorded 06/21/19 5:15PM by Enedina Luna LPN (Willis miller through LAILA Sandra), Annotati on/Adden dum; Refill Quantity : 0; Not Available Not Available Not Available loratadin e 10 mg tablet TAKE 1 TABLET BY MOUTH EVERY DAY active Not Available Not Available No t Available azithromy monisha 500 mg tablet TAKE 1 TABLET BY MOUTH DAILY FOR 5 DAYS 08/20 completed Not Available Not Available Not Available bupropion HCl XL 300 mg 24 hr tablet, extended release TAKE 1 TABLET BY MOUTH EVERY MORNING active Not Available Not Available No t Available bupropion HCl XL 150 mg 24 hr tablet, extended release TAKE 1 TABLET BY MOUTH EVERY MORNING active Not Available Not Available No t Available Flonase bid 2021 active Recorded 06/21/19 5:16PM by Enedina Luna LPN, Phone Encounte r; Refill Quantity : 0; Not Available Not Available Not Available Pyridium three times daily, as needed 2021 active VO AT/tg; Recorded 03/01/20 3:27PM by Jacki Lemon, Jeannette al Summary; Refill Quantity : 0; Not Available Not Available Not Available Vitals Date Recorded Body height Body mass index (BMI) Body weight Oxygen saturation Oxygen saturation in Arterial blood by Pulse oximetry Heart rate Respiratory rate Body temperature Systolic And Diastolic Provider Name and Address Organization Details Last Updated DateTime 4 157.48 cm 23.5 kg/m2 31294.6 2 g 99 % 99 % 73 /min 20 /min 98.7 [degF] 108/70 mm[Hg] KEISHA KEENE [facility] 4 08:32:25 Date Recorded Body height Body mass index (BMI) Body weight Oxygen saturation Oxygen saturation in Arterial blood by Pulse oximetry Heart rate Body temperature Systolic And Diastolic Provider Name and Address Organization Details Last Updated DateTime 3 157.48 cm 25 kg/m2 03604.7 2 g 100 % 100 % 87 /min 97.1 [degF] 138/78 mm[Hg] Jacy Mcdonald [facility] 3 09:26:45 Date Recorded Body height Body mass index (BMI) Body weight Oxygen saturation Oxygen saturation in Arterial blood by Pulse oximetry Heart rate Body temperature Respiratory rate Systolic And Diastolic Provider Name and Address Organization Details Last Updated DateTime 3 157.48 cm 24.7 kg/m2 05959.9 7 g 98 % 98 % 89 /min 97.7 [degF] 20 /min 130/65 mm[Hg] Kathryn Cooper [facility], [facility] 3 13:01:41 Social History None recorded. Functional Status None recorded. Mental Status None recorded. Family History Nothing Reported. Medical History No medical history recorded. Gynecological HistoryNo gynecological history recorded. Obstetrics History GPAL:G 0 P 0 0 0 0 Past Encounters Encounter ID Performer Location Encounter Start Date Encounter Closed Date Diagnosis/Indication Diagnosis SNOMED-CT Code Diagnosis ICD10 Code Diagnosis IMO Codes Diagnosis Note [id number] LAILA NANCE [facility] ([facility]) [address] [place] [address] 05/08/2023 09:07:42 05/08/2023 11:08:50 Pain of left elbow joint [id number] 7103686 M25.522 No obvious fracture on xray. Will send for over read. Will placed in sling today. Return to clinic on Saturday for recheck then most likely will release for work. Encouraged her to do controlled ROM exercises. Tylenol/Ib uprofen as needed for pain. Ludwin platt engaged in work-related activity [id number] Y99.0 [id number] KRISTIN KEARNS PA-C [facility] ([facility]) [address] [place] [phone] 05/13/2023 12:52:51 05/13/2023 13:37:56 Pain of left elbow joint [id number] 0434341 M25.522 normal xray. results reviewed with pt. she is released to go back to work today 05.13.23. No restrictio n [id number] RAMILA RAMOS [facility] ([facility]) [address] [place] [address] 08/19/2023 08:13:50 08/19/2023 09:05:00 Dysuria 79358999 R30.0 Acute urin zoran tract infection 176830175 N39.0 Start cefdinir BID x7 days, take as prescribed . Patient does have a penicillin allergy that results in a rash but states she has tolerated cephalospo rins previously . Encouraged to increase water intake and decrease caffeine and sugary drinks. If still having symptoms after completion of antibiotic s, recommend a urine re-check. Urine was sent for culture. Will call with culture results. If worsening condition or no improvemen t in 3-5 days, recommend returning for re-evaluat ion. Patient verbalized understand ing. Should keep follow up with OBGYN this week. Health Concerns Section Related Observation LastModified by Organization Detai ls LastModified Time None Recorded Concern Status LastModified by Organization Details LastModified Time None Recorded Advance Directives Directive None Recorded Payers Insurance Date Sequence Insurance Name Policy Number Policy Chávez Covered Member ID Chávez Member ID Guarantor Name 05/13/2023 BORIS [id number] Boris Durand 08/19/2023 1 [facility] (MEDICAID REPLACEMENT - HMO) ANA Durand [id number] Batsheva Durand Notes Date Note Type Note Provider Name and Address Organization Details Recorded Time 05/08/2023 text/html Musculoskeletal PainReported by PatientHPIFor quality, patient reportssharpandtingling . For severity, patient reportsdriving impairment,worsening, andinterferes with work/school. For associated symptoms, patient reportstinglingbut reportsno fever. For location, patient reports__ armandleft elbow. For duration, patient reportspresent <1 month. For timing, patient reportsdate of onset: (today),constant, andsudden. For context, patient reportstrauma. For aggravating factors, patient reportsmovement/positio ericka,bending over, andtwisting. For adls affected, (unable to bend arm).ROS as noted in the HPI LAILA NANCE [address] [place] [address], [phone], [facility] 05/08/2023 11:02:07 05/13/2023 text/html ROS as noted in the HPI She is here for a follow up visit from her appointment on 05-08-23. She had injured her left elbow.Pain is resolved. normal functionShe is ready to return to [facility] [address] [place], [address], [facility], [place]. 05/13/2023 13:10:38 08/19/2023 text/html Lower Urinary Tr act Symptoms (LUTS)Reported by PatientHPIFor location, patient reportsbilateral. For quality, patient reportsachingandpressur e. For severity, patient reportsworseningandmode rate. For onset/timing, patient reportsspontaneous. For duration, patient reportsacuteand< 1 week(started this morning). For context, patient reportsdenies excessive fluid intake,denies excessive caffeine intake,denies new medication treatment,history of bladder infections, andhistory of urinary tract infection. Patient is a 32 year old female who presents to the walk in clinic today for urinary burning, urgency, and frequency. Patient reports symptoms started this morning. Patient has not tried any OTC medications. Patient is 6 weeks currently. RAMILA RAMOS [address] [place], [address], [facility], [place]. 08/19/2023 09:01:45 OBGyn Episode No OBEpisode recorded.
--- OUTSIDE RECORDS SUMMARY | 2025-05-05 05:13 | XMS_ITS | Clinical Summary ---
Author Organization [facility] Address [address] [place]: Epic Prelude ADT DEON BAUMAN [id number] Care Team Providers Care Nurse Plastics Name Role Phone Gertrude Camargo MD Primary Care Provider [phone] Allergies Active Allergy Reactions Criticality Noted Date Comments Penicillins Other (See Comments) 09/16/2015 Vaginal pain, vaginal itching Medications HYDROcodone-ashley taminophen (NORCO) 5-325 mg tablet Take 1 Tablet by mouth every 6 hours as needed for Pain. Max Daily Amount: 4 Tablet 12 Tablet None 7 Active fluticasone propionate (FLONASE) 50 mcg/spray [place], Suspension nasal inhaler ADMINISTER 2 SPRAYS IN [...] on file Legal Sex Female 1:52 PM COPY CLERK Gender Identity Not on file Sexual Orientation Not on file Last Filed Vital Signs Vital Sign Reading Time Taken Comments Blood Pressure 98/55 06/29/2016 10:25 AM COPY CLERK Pulse 113 09/16/2015 11:28 AM CDT Temperature 36.7 C (98.1 F) 06/29/2016 10:25 AM COPY CLERK Respiratory Rate 18 06/29/2016 10:25 AM COPY CLERK Oxygen Saturation - - Inhaled Oxygen Concentration - - Weight 50.9 kg (112 lb 4.8 oz) 06/29/2016 9:14 A M COPY CLERK Height 157.5 cm (5' 2 ) 06/29/2016 9:14 AM COPY CLERK Body Mass Index 20.54 06/29/2016 9:14 AM COPY CLERK Plan of Treatment Health Maintenance Due Date Last Done Comments DTAP/TDAP/TD VACCINES (1 - Tdap) 2009 HEPATITIS B VACCINES (1 of 3 - 19+ 3-dose series) 11/16 HPV/Cotest (21-29) 12/10/2011 HPV VACCINES (1 - 3-dose SCDM series) 2017 CERVICAL CANCER SCREENING 2020 HPV/Cotest (30-65) 2020 PAP SMEAR 2020 INFLUENZA VACCINE (#1) 2025 Care Teams Nurse Plastics Relationship Specialty Start Date End Date Gertrude Camargo MD [address] [place] [id number] PCP - General Family Practice 06/29/16
== END 2025-05-04 18:53 | disposition home or self-care (01) ==
PROVIDERS: Emergency Provider Physician Assistant; PCP Family Medicine
DX: S93.601A Unspecified sprain of right foot, initial encounter (principal); X58.XXXA Exposure to other specified factors, initial encounter
CPT/HCPCS: 73630; 99283

== ENCOUNTER → 2025-05-20 12:48 | Outpatient (BNVA) | payer MEDICAID, SELFPAY | PROVIDERS: PCP Family Medicine; Visit Provider Nurse Practitioner Women's Health | DX: Z01.419 Encounter for gynecological examination (general) (routine) without abnormal findings (principal) | CPT/HCPCS: 80053; 82306; 83036; 84443; 85025 ==